=== PATIENT | female | born 1945 | race Caucasian/White ===

== ENCOUNTER 2017-04-07 10:52 | Inpatient (IN) | payer OTHER, MEDICARE ==
[~2017-04-07] VITALS: Ht 149.9 cm; Wt 81.4 kg
[2017-04-07] VITALS (8 sets, daily range): BP systolic 138–197; BP diastolic 75–97; PULSE 86–108; RESP 18–22; TEMP 97.7–97.9; O2SAT 90–96
[~2017-04-07 10:52] MED LIST: CALC600T44 PO; DILTCD240 PO; GLUCOSAMINE1500 COM PO; GLUCTAB6 PO; LISI-363 PO; LOVA40TA PO; MULT1TAB PO; PERC5TAB12 PO; RIVA10 PO; TRAM100T19 PO; VITA400C70 PO
[2017-04-07] MEDS ORDERED: COSA500C3 (11:21)
[2017-04-07] MEDS ORDERED: CALC500C16 CHEW (11:21)
[2017-04-07] MEDS ORDERED: CURCPOW (11:21)
[2017-04-07] MEDS ORDERED: LOVA40TA PO (11:21)
[2017-04-07] MEDS ORDERED: TRAM50TA PO (11:21)
[2017-04-07] MEDS ORDERED: LISI-515 PO (11:21)
[2017-04-07] MEDS ORDERED: VITA-142 (11:21)
[2017-04-07] MEDS ORDERED: DILT-48 PO (11:21)
[2017-04-07 11:33] LABS: AUTOMATED NEUTROPHIL # 9.5 TH/MM3 (1.8-7.7); BASOPHIL % 0.3 % (0.0-2.0); EOSINOPHIL % 0.2 % (0.0-4.0); HEMATOCRIT 43.1 % (35.0-46.0); HEMO FLAGS DIFF FINAL; LYMPH % 13.3 % (9.0-44.0); LYMPHOCYTE # 1.6 TH/MM3 (1.0-4.8); MEAN CORPUSCULAR HEMOGLOBIN 31.6 PG (27.0-34.0); MEAN CORPUSCULAR HGB CONC 33.2 % (32.0-36.0); MONO % 7.2 % (0.0-8.0); PLATELET COUNT 188 TH/MM3 (150-450); RED BLOOD COUNT 4.53 MIL/MM3 (4.00-5.30); RED CELL DISTRIBUTION WIDTH 13.4 % (11.6-17.2)
--- NOTE | 2017-04-07 11:38 | PD ---
HPI Chief Complaint: Fall Time Seen by Provider: 11:03 Travel History International Travel<30 days: No Contact w/Intl Traveler<30days: No Traveled to known affect area: No History of Present Illness HPI The patient is a 71-year-old female who presents emergency department after mechanical fall that occurred Monday. The patient has a history of recurrent fall secondary to bilateral hip replacements with a shortened right lower extremity which predisposes her to falls, according to her report. The patient fell in the bathroom on Monday night, landing on her knees and then striking her face against the ground. The patient denies any loss of consciousness, was able to crawl to the toilet and then stand up. She now notes swelling to the face just inferior to the eyes with ecchymosis bilateral. The patient denies any headache, loss of consciousness, or neck pain. The patient denies any epistaxis or bleeding from the oropharynx. However, the patient now complains of shortness of breath was noted to have an oxygen saturation of 90% at her physician's office earlier today, Dr. Valenzuela. The patient was then referred to the emergency department for further evaluation by her primary physician. The patient denies any history of asthma, COPD, recurrent bronchitis or pneumonia, her oxygen requirements. She does have a history of a clot to left lower extremity, unsure if it was arterial or venous, but currently takes no anticoagulants except for aspirin. The patient denies chest wall pain, does complain of mild shortness of breath, does note mild ecchymosis over the left breast. She denies any nausea, vomiting, or abdominal pain. She is able to bear weight on both lower extremities without difficulty. PFSH Past Medical History Arthritis: Yes Blood Disorders: No Heart Rhythm Problems: No Cancer: Yes (UTERINE, THYROID) Cardiovascular Problems: Yes High Cholesterol: Yes Chemotherapy: No Chest Pain: No Congestive Heart Failure: No Diabetes: Yes (TYPE 2 NO MEDS) Patient Takes Glucophage: No Deep Vein Thrombosis: Yes (LLE) Endocrine: Yes Genitourinary: No Hepatitis: No Hiatal Hernia: No Hypertension: Yes Immune Disorder: No Musculoskeletal: Yes Neurologic: No Psychiatric: No Reproductive: Yes Respiratory: No Myocardial Infarction: No Radiation Therapy: No Thyroid Disease: Yes (GOITER NO MEDS) Tetanus Vaccination: > 5 Years Influenza Vaccination: No ?: Not Past Surgical History Abdominal Surgery: Yes (LAP CJ) AICD: No Arteriovenous Shunt: No Cardiac Surgery: No Section: Yes (X 2) Cholecystectomy: Yes Ear Surgery: No Endocrine Surgery: No Eye Surgery: No Genitourinary Surgery: Yes Gynecologic Surgery: Yes ( X2 68',70'; 2006 HYSTERECTOMY OLEGARIO S&O) Hysterectomy: Yes (S/P CANCER) Insulin Pump: No Joint Replacement: Yes (BILATERAL HIP REPLACEMENT ) Oral Surgery: No Pacemaker: No Thoracic Surgery: No Other Surgery: Yes Social History Alcohol Use: Yes (COUPLE GLASSES OF WINE SOCIALLY) Tobacco Use: No Substance Use: No Allergies-Medications (Allergen,Severity, Reaction): Coded Allergies: No Known Allergies (Verified Adverse Reaction, Unknown, 04/07/17) Reported Meds & Prescriptions Reported Meds & Active Scripts Active Reported Curcumin (Turmeric (Curcuma Longa) (Bulk) 95 % Pow Vitamin E (Vitamin E Acetate) 400 Unit Capsule Tramadol (Tramadol HCl) 50 Mg Tab 100 Mg PO Q6H PRN Lovastatin 40 Mg Tab 40 Mg PO HS Lisinopril 20 Mg Tab 20 Mg PO DAILY Cosamin Ds Capsule (Glucosam/Chondroit/C/Manganese) 500 Mg-400 Mg-2 Mg-0.33 Mg Capsule Diltiazem ER 24 HR 240 Mg Caper 240 Mg PO DAILY Calcium Carbonate (Antacid) 500 Mg Chew 500 Mg CHEW BID PRN Review of Systems Except as stated in HPI: all other systems reviewed are Neg Eyes: No: Blurred Vision, Photophobia HENT: No: Headaches, Lightheadedness, Neck Pain Cardiovascular: No: Chest Pain or Discomfort Respiratory: Positive: Shortness of Breath, No: Cough Gastrointestinal: No: Nausea, Vomiting, Abdominal Pain Musculoskeletal: No: Edema Neurologic: No: Dizziness Physical Exam Narrative GENERAL: Awake, alert, pleasant 71-year-old female who appears her stated age and is in mild respiratory distress. SKIN: Focused skin assessment warm/dry. HEAD: Ecchymosis noted in the inferolateral area bilateral. No visible ecchymosis behind the ears. EYES: Pupils equal and round. Pupils are 4 mm bilateral and reactive. EOMs are intact. Patient is able to see fingers at a distance of 2 feet without difficulty. ENT: No nasal bleeding or discharge. Mucous membranes pink and moist. NECK: Trachea midline. No JVD. No tenderness of the cervical vertebrae. CARDIOVASCULAR: Regular rate and rhythm. No murmur appreciated. RESPIRATORY: No accessory muscle use. Diminished breath sounds in the bases bilateral, left greater than right. GASTROINTESTINAL: Abdomen soft, non-tender, nondistended. No rebound tenderness. MUSCULOSKELETAL: No obvious deformities. No clubbing. No cyanosis. No edema. Able to flex the hips and knees bilaterally to 90. MICHAEL hose noted on the lower extremities bilaterally. Back: No visible ecchymosis over the thoracic or lumbar vertebrae. No tenderness over the thoracic or lumbar vertebrae. NEUROLOGICAL: Awake and alert. No obvious cranial nerve deficits. Motor grossly within normal limits. Normal speech. Nonfocal. PSYCHIATRIC: Appropriate mood and affect; insight and judgment normal. Data Data Last Documented VS Vital Signs Date Time Temp Pulse Resp B/P (MAP) Pulse Ox O2 Delivery O2 Flow Rate FiO2 04/07/17 11:22 101 22 181/94 (123) 94 Nasal Cannula 3.00 04/07/17 11:10 87 04/07/17 10:54 97.9 Orders Orders Chest, Single Ap (04/07/17 ) Complete Blood Count With Diff (04/07/17 11:19) Comprehensive Metabolic Panel (04/07/17 11:19) Creatine Kinase (Cpk) (04/07/17 11:19) Troponin I (04/07/17 11:19) B-Type Natriuretic Peptide (04/07/17 11:45) Ct Brain W/O Iv Contrast(Rout) (04/07/17 ) Ct Facial Bones W/O Iv Cont (04/07/17 ) Ct Pulmonary Angiogram (04/07/17 ) Electrocardiogram (04/07/17 ) Echo 2d Comp With Doppler (04/07/17 ) Labs Laboratory Tests Test 04/07/17 11:27 04/07/17 11:50 White Blood Count 12.0 TH/MM3 Red Blood Count 4.53 MIL/MM3 Hemoglobin 14.3 GM/DL Hematocrit 43.1 % Mean Corpuscular Volume 95.0 FL Mean Corpuscular Hemoglobin 31.6 PG Mean Corpuscular Hemoglobin Concent 33.2 % Red Cell Distribution Width 13.4 % Platelet Count 188 TH/MM3 Mean Platelet Volume 8.4 FL Neutrophils (%) (Auto) 79.0 % Lymphocytes (%) (Auto) 13.3 % Monocytes (%) (Auto) 7.2 % Eosinophils (%) (Auto) 0.2 % Basophils (%) (Auto) 0.3 % Neutrophils # (Auto) 9.5 TH/MM3 Lymphocytes # (Auto) 1.6 TH/MM3 Monocytes # (Auto) 0.9 TH/MM3 Eosinophils # (Auto) 0.0 TH/MM3 Basophils # (Auto) 0.0 TH/MM3 CBC Comment DIFF FINAL Differential Comment Blood Urea Nitrogen 16 MG/DL Creatinine 0.80 MG/DL Random Glucose 130 MG/DL Total Protein 8.7 GM/DL Albumin 4.3 GM/DL Calcium Level 9.1 MG/DL Alkaline Phosphatase 117 U/L Aspartate Amino Transf (AST/SGOT) 37 U/L Alanine Aminotransferase (ALT/SGPT) 45 U/L Total Bilirubin 0.5 MG/DL Sodium Level 141 MEQ/L Potassium Level 3.8 MEQ/L Chloride Level 105 MEQ/L Carbon Dioxide Level 23.0 MEQ/L Anion Gap 13 MEQ/L Estimat Glomerular Filtration Rate 71 ML/MIN Total Creatine Kinase 121 U/L Troponin I 0.23 NG/ML B-Type Natriuretic Peptide 280 PG/ML MDM Medical Decision Making Medical Screen Exam Complete: Yes Emergency Medical Condition: Yes Medical Record Reviewed: Yes Interpretation(s) EKG reveals normal sinus rhythm with a rate in 96. Inverted T waves noted in lead V3, V4, V5, V6, 1, aVL, and lead 2. Left ventricular hypertrophy. Last Impressions Maxillofacial CT 04/07/17 Signed Impressions: Service Date/Time: Friday, April 07, 2017 12:25 - CONCLUSION: Negative trauma study with no evidence of fracture. Poli Workman MD Head CT 04/07/17 Signed Impressions: Service Date/Time: Friday, April 07, 2017 12:25 - CONCLUSION: Multiple low attenuation areas of apparent edema of concern for metastatic disease or multiple infarctions. Further evaluation with MRI with and without contrast is recommended. Poli Workman MD Chest X-Ray 04/07/17 Signed Impressions: Service Date/Time: Friday, April 07, 2017 11:36 - CONCLUSION: 1. No acute cardiopulmonary disease. Jean Paul Gan MD CT Angiography 04/07/17 Signed Impressions: Service Date/Time: Friday, April 07, 2017 12:33 - CONCLUSION: 1. Extensive bilateral pulmonary embolism with saddle emboli. This finding was reviewed with Dr. Addison. 2. 6 mm noncalcified pulmonary nodule in the right lower lobe. 3. No confluent infiltrates. 4. Heart size is enlarged. Poli Workman MD Laboratory Tests Test 04/07/17 11:27 04/07/17 11:50 White Blood Count 12.0 TH/MM3 Red Blood Count 4.53 MIL/MM3 Hemoglobin 14.3 GM/DL Hematocrit 43.1 % Mean Corpuscular Volume 95.0 FL Mean Corpuscular Hemoglobin 31.6 PG Mean Corpuscular Hemoglobin Concent 33.2 % Red Cell Distribution Width 13.4 % Platelet Count 188 TH/MM3 Mean Platelet Volume 8.4 FL Neutrophils (%) (Auto) 79.0 % Lymphocytes (%) (Auto) 13.3 % Monocytes (%) (Auto) 7.2 % Eosinophils (%) (Auto) 0.2 % Basophils (%) (Auto) 0.3 % Neutrophils # (Auto) 9.5 TH/MM3 Lymphocytes # (Auto) 1.6 TH/MM3 Monocytes # (Auto) 0.9 TH/MM3 Eosinophils # (Auto) 0.0 TH/MM3 Basophils # (Auto) 0.0 TH/MM3 CBC Comment DIFF FINAL Differential Comment Blood Urea Nitrogen 16 MG/DL Creatinine 0.80 MG/DL Random Glucose 130 MG/DL Total Protein 8.7 GM/DL Albumin 4.3 GM/DL Calcium Level 9.1 MG/DL Alkaline Phosphatase 117 U/L Aspartate Amino Transf (AST/SGOT) 37 U/L Alanine Aminotransferase (ALT/SGPT) 45 U/L Total Bilirubin 0.5 MG/DL Sodium Level 141 MEQ/L Potassium Level 3.8 MEQ/L Chloride Level 105 MEQ/L Carbon Dioxide Level 23.0 MEQ/L Anion Gap 13 MEQ/L Estimat Glomerular Filtration Rate 71 ML/MIN Total Creatine Kinase 121 U/L Troponin I 0.23 NG/ML B-Type Natriuretic Peptide 280 PG/ML Differential Diagnosis Differential diagnosis includes closed head injury, to cranial hemorrhage, subarachnoid hemorrhage, basal skull fracture, facial fracture, pneumothorax, pulmonary contusion, pulmonary embolism, rib fracture, flail chest. Narrative Course IV was established, labs are drawn and sent, and the patient was placed on cardiac telemetry monitoring and continuous pulse oximetry monitoring. Chest x- ray was obtained. CT of the brain and facial bones was obtained. CT of the brain reveals areas of edema that could represent metastatic disease versus multiple infarctions. CT pulmonary angiogram reveals saddle embolism, I discussed the patient with the radiologist. As the patient does have areas of edema in the brain, uncertain to be recent infarcts versus edema, I discussed the patient with the on-call neurosurgeon. I discussed the patient with the physician assistant operator Anette, who states I can place the patient on heparin. I discussed the patient with the health coordinator, Dr. Garcia, who agrees with admission. He will order a stat echo. At this point it is uncertain if the patient has right ventricular strain, if she can receive TPA. The patient may need a stat MRI prior to this. A call was placed to the patient's primary physician, Dr. Patel. I did discuss the findings with the patient. Critical Care Narrative Aggregate critical care time was 45 minutes. Time to perform other separately billable procedures was not included in the critical care time. My time did not include minutes spent treating any other patients simultaneously or on activities that did not directly contribute to the patient's treatment. The services I provided to this patient were to treat and/or prevent clinically significant deterioration that could result in: Anoxia, hypoxia, ventricular strain, cor pulmonale, arrhythmia, . I provided critical care services requiring my management, as noted below: Chart data review, documentation time, medication orders and management, vital sign assessments/reviewing monitor data, ordering and reviewing lab tests, ordering and interpreting/reviewing x-rays and diagnostic studies, care of the patient and discussion of the patient with the admitting physicians. Physician Communication Physician Communication I discussed the patient with the health coordinator, Dr. Garcia, who agrees with admission. Diagnosis Primary Impression: Pulmonary embolism Qualified Codes: I26.02 - Saddle embolus of pulmonary artery with acute cor pulmonale Condition: Serious Darion Addison MD Apr 07, 2017 11:38
[2017-04-07 11:57] LABS: ALT (GPT) 45 U/L (10-53); ANION GAP 13 MEQ/L (5-15); AST (GOT) 37 U/L (15-37); BLOOD UREA NITROGEN 16 MG/DL (7-18); CHLORIDE 105 MEQ/L (98-107); GLOMERULAR FILTRATION RATE 71 ML/MIN (>89); POTASSIUM 3.8 MEQ/L (3.5-5.1); SODIUM (NA) 141 MEQ/L (136-145)
[2017-04-07 12:00] LABS: ALKALINE PHOSPHATASE 117 U/L (45-117); CREATINE KINASE 121 U/L (26-192); TOTAL BILIRUBIN ADULT 0.5 MG/DL (0.2-1.0)
--- NOTE | 2017-04-07 12:04 | RADRPT ---
EXAM DATE/TIME: 04/07/2017 11:36 [facility] COMPARISON: No previous studies available for comparison. INDICATIONS : Short of breath. MEDICAL HISTORY : None. SURGICAL HISTORY : Thyroid ENCOUNTER: Initial ACUITY: 2 days PAIN SCORE: 0/10 LOCATION: Bilateral chest FINDINGS: A single view of the chest demonstrates the lungs to be symmetrically aerated without evidence of mas s, infiltrate or effusion. The cardiomediastinal contours are unremarkable. Osseous structures are intact. CONCLUSION: 1. No acute cardiopulmonary disease. Jean Paul Gan MD on April 07, 2017 at 12:01 Board Certified Radiologist. This report was verified electronically.
[2017-04-07] MEDS ORDERED: IOHEXOL 350 MG/ML 10 ML VIAL (for RAD DIAG) IVCONTRAST ONE (12:33)
--- NOTE | 2017-04-07 12:38 | RADRPT ---
EXAM DATE/TIME: 04/07/2017 12:25 [facility] COMPARISON: No previous studies available for comparison. INDICATIONS : Fell 3 days ago, bilateral orbital bruising . RADIATION DOSE: 38.47 CTDIvol (mGy) MEDICAL HISTORY : Deep venous thrombosis. Hypertension. Cardiovascular disease SURGICAL HISTORY : Hysterectomy. Cholecystectomy. ENCOUNTER: Initial ACUITY: 3 days PAIN SCALE: 4/10 LOCATION: Bilateral facial TECHNIQUE: Multiple contiguous axial images were obtained of the head. Using automated exposure control and adj ustment of the mA and/or kV according to patient size, radiation dose was kept as low as reasonably a chievable to obtain optimal diagnostic quality images. DICOM format image data is available electro nically for review and comparison. FINDINGS: There are multiple focal areas of low attenuation edema. The largest is in the right parietal lo be measuring up to 2 x 1 cm which extends out to the surface of the brain. There is a smaller low att enuation area of edema involving the left posterior cerebellar hemisphere. This measures up to approx imately 2 x 1.2 cm in diameter. There is a third, smaller low density area involving the high right p arietal cortex measuring up to 11 mm. There is no mass effect or midline shift. The ventricular syste m is within normal limits. The posterior fossa and brainstem are otherwise unremarkable. The bone win dows demonstrate hyperostosis frontalis interna. CONCLUSION: Multiple low attenuation areas of apparent edema of concern for metastatic disease or multiple infarctions. Further evaluation with MRI with and without contrast is recommended. Poli Workman MD on April 07, 2017 at 12:33 Board Certified Radiologist. This report was verified electronically.
--- NOTE | 2017-04-07 13:01 | RADRPT ---
EXAM DATE/TIME: 04/07/2017 12:33 [facility] COMPARISON: No previous studies available for comparison. INDICATIONS : Fall 3 days ago, now with shortness of breath. IV CONTRAST: 74 cc Omnipaque 350 (iohexol) IV RADIATION DOSE: 23.14 CTDIvol (mGy) MEDICAL HISTORY : Cardiovascular disease. Hypertension. Deep venous thrombosis.Uterine ca and thyroid. SURGICAL HISTORY : Hysterectomy. Cholecystectomy. ENCOUNTER: Initial ACUITY: 3 days PAIN SCALE: 0/10 LOCATION: chest TECHNIQUE: Volumetric scanning of the chest was performed using a pulmonary embolism protocol MIP images were re constructed. Using automated exposure control and adjustment of the mA and/or kV according to patien t size, radiation dose was kept as low as reasonably achievable to obtain optimal diagnostic quality images. DICOM format image data is available electronically for review and comparison. Follow-up recommendations for detected pulmonary nodules are based at a minimum on nodule size and pa tient risk factors according to Fleischner Society Guidelines. FINDINGS: PULMONARY ARTERIES: There is a large saddle embolism extending across the main pulmonary artery into the right and left b ranch vessels. There is extensive emboli in the right lower lobe pulmonary arteries and milder emboli in the left lower lobe pulmonary arteries. LUNGS: There is no consolidation or pneumothorax . The there is a 6 mm noncalcified pulmonary nodule in the right lower lobe on image #63. PLEURAE: There is no pleural thickening or pleural effusion. MEDIASTINUM: There is good visualization of the great vessels of the middle mediastinum. No evidence of mediastin al or hilar adenopathy/mass. The heart size is enlarged. MUSCULOSKELETAL: Within normal limits for patient age. MISCELLANEOUS: The visualized upper abdominal organs demonstrate no acute abnormality. The patient is status post me nicole sternotomy. CONCLUSION: 1. Extensive bilateral pulmonary embolism with saddle emboli. This finding was reviewed with Dr. Lisa watt. 2. 6 mm noncalcified pulmonary nodule in the right lower lobe. 3. No confluent infiltrates. 4. Heart size is enlarged. Poli Workman MD on April 07, 2017 at 12:55 Board Certified Radiologist. This report was verified electronically.
--- NOTE | 2017-04-07 13:03 | RADRPT ---
EXAM DATE/TIME: 04/07/2017 12:25 [facility] COMPARISON: No previous studies available for comparison. INDICATIONS : Fell 3 days ago, bilateral orbital bruising . RADIATION DOSE: 59.97 CTDIvol (mGy) MEDICAL HISTORY : Cardiovascular disease. Deep venous thrombosis. Hypertension. SURGICAL HISTORY : Hysterectomy. Cholecystectomy. ENCOUNTER: Initial ACUITY: 3 days PAIN SCORE: 4/10 LOCATION: Bilateral facial TECHNIQUE: Volumetric scanning of the facial bones was performed. Using automated exposure control and adjustme nt of the mA and/or kV according to patient size, radiation dose was kept as low as reasonably achiev able to obtain optimal diagnostic quality images. DICOM format image data is available electronicall y for review and comparison. FINDINGS: ORBITS: The orbital and infraorbital osseous structures are intact. The retroconal structures have a normal configuration. No radiopaque foreign bodies are seen. NASAL BONE: The nasal bone and maxillary spine are intact ZYGOMATIC ARCHES: Symmetric without evidence of fracture. SINUSES: The maxillary, ethmoid and frontal sinuses are intact. No air-fluid levels seen. NASAL CAVITY: The nasal septum is intact and midline. The lacrimal ducts are intact. SOFT TISSUES: No radiopaque foreign bodies seen. No soft-tissue swelling is seen. INTRACRANIAL: No intracranial air seen. CRIBIFORM PLATE: Grossly intact. CONCLUSION: Negative trauma study with no evidence of fracture. Poli Workman MD on April 07, 2017 at 13:00 Board Certified Radiologist. This report was verified electronically.
[2017-04-07] MEDS ORDERED: POTASSIUM PHOSPHATE MONOBASIC 500 MG TAB PO PRN (13:15)
[2017-04-07] MEDS ORDERED: MAGNESIUM SULFATE INJ 2 GM in SODIUM CHLORIDE 0.9% INJ 96 ML IV PRN (13:15)
[2017-04-07] MEDS ORDERED: CHLORHEXIDINE GLUCONATE 2 % 1 PACK (2 CLOTHS) TOP PRN (13:15)
[2017-04-07] MEDS ORDERED: MAGNESIUM HYDROXIDE SUSP 30 ML CUP PO PRN (13:15)
[2017-04-07] MEDS ORDERED: POTASSIUM CHLOR 40 MEQ PREMIX 100 ML IV PRN ×2 (13:15)
[2017-04-07] MEDS ORDERED: MAGNESIUM OXIDE 400 MG TAB PO PRN (13:15)
[2017-04-07] MEDS ORDERED: HEPARIN-D5W 25,000 U/250 ML 250 ML IV PRN (13:15)
[2017-04-07] MEDS ORDERED: HEPARIN SODIUM - IV 10,000 UNITS/10 ML VIAL IV ONE (13:15)
[2017-04-07] MEDS ORDERED: DEXTROSE 50% IN WATER 50 ML VIAL(D50) IV PUSH PRN (13:15)
[2017-04-07] MEDS ORDERED: BISACODYL 10 MG SUPP RECTAL PRN (13:15)
[2017-04-07] MEDS ORDERED: POTASSIUM PHOSPHATE INJ 30 MMOL in SODIUM CHLOR 0.9% 250 ML INJ 250 ML IV PRN (13:15)
[2017-04-07] MEDS ORDERED: ONDANSETRON HCL 4 MG/2 ML VIAL IV PUSH PRN (13:15)
[2017-04-07] MEDS ORDERED: RESP: ALBUTEROL 2.5 MG/IPRATROPIUM 0.5 MG NEB (PRN) INH (13:15)
[2017-04-07] MEDS ORDERED: MAGNESIUM SULFATE INJ 4 GM in SODIUM CHLORIDE 0.9% INJ 92 ML IV PRN (13:15)
[2017-04-07] MEDS ORDERED: POTASSIUM CHLOR 20 MEQ PREMIX 100 ML IV PRN ×2 (13:15)
[2017-04-07] MEDS ORDERED: SODIUM PHOSPHATE INJ 30 MMOL in SODIUM CHLOR 0.9% 250 ML INJ 240 ML IV PRN (13:15)
[2017-04-07] MEDS ORDERED: MISCELLANEOUS NURSING INFORMATION XX SCH (13:15)
[2017-04-07] MEDS ORDERED: POTASSIUM PHOSPHATE MONOBASIC 500 MG TAB PO/TUBE PRN (13:15)
--- NOTE | 2017-04-07 14:24 | HHI.HP ---
[facility] Service Critical Care Medicine Primary Care Physician Reyes Valenzuela MD Admission Diagnosis pulmonary embolism, metastatic disease versus infarct Diagnosis: Chief Complaint: shortness of breath Travel History International Travel<30 Days: No Contact w/Intl Traveler <30 Da: No Traveled to Known Affected Are: No History of Present Illness This is a 8-year-old female who has a history of uterine cancer and thyroid cancer, although both of these are reportedly in remission, who presents with a few day history of worsening shortness of breath, particularly on exertion, but also at rest. She states that even though she uses a walker, it's becoming increasingly difficult to walk because of her shortness of breath, and in addition today she noted that it was difficult to even eat dinner last night her breakfast this morning without being dyspneic. She tried to get to her PCPs office who did an EKG and sent her to the emergency department for further workup. Emergency department she was found to be tachycardic and mildly hypoxic. She is mildly elevated troponins. CT brain demonstrates multiple hypodense lesions of indeterminate origin. Neurosurgery recommended MRI for further evaluation of the lesions. CT pulmonary angiogram demonstrated saddle embolism with high clot burden. She does have a remote history of a prior DVT in the left lower extremity for which she has intermittent edema in the left lower extremity, although she has not had recent edema to this extremity, and her clot was so remote that she is now only on a baby aspirin daily per her PCP. She did endorse frequent falls and recently following and bruising her face for which she has bilateral raccoon eyes. She denies syncope or any other symptoms associated with these falls. Critical-care medicine is consulted to evaluate and manage her submassive pulmonary embolism. Review of Systems Constitutional: COMPLAINS OF: Fatigue, DENIES: Diaphoretic episodes, Fever, Weight gain, Weight loss, Chills, Dizziness Eyes: DENIES: Vision loss Respiratory: COMPLAINS OF: Shortness of breath, DENIES: Apneas, Cough, Snoring , Wheezing, Hemoptysis, Sputum production Cardiovascular: COMPLAINS OF: Dyspnea on Exertion, DENIES: Chest pain, Palpitations, Syncope, PND, Lower Extremity Edema, Orthopnea, Claudication Gastrointestinal: DENIES: Abdominal pain, Constipation, Diarrhea, Nausea, Vomiting Neurologic: DENIES: Abnormal gait, Headache, Localized weakness, Seizures Psychiatric: DENIES: Anxiety, Confusion Past Family Social History Allergies: Coded Allergies: No Known Allergies (Verified Allergy, Unknown, 04/07/17) Past Medical History Arthritis Uterine cancer Thyroid cancer Hypercholesterolemia Type 2 diabetes, diet controlled Prior left lower extremity DVT, remote, takes baby aspirin Hypertension Past Surgical History Laparoscopic cholecystectomy delivery 2 Hysterectomy with bilateral salpingo-oophorectomy in 2005 for uterine cancer Total thyroidectomy Bilateral total hip arthroplasties Reported Medications Curcumin (Turmeric (Curcuma Longa) (Bulk) 95 % Pow Vitamin E (Vitamin E Acetate) 400 Unit Capsule Tramadol (Tramadol HCl) 50 Mg Tab 100 Mg PO Q6H PRN Lovastatin 40 Mg Tab 40 Mg PO HS Lisinopril 20 Mg Tab 20 Mg PO DAILY Cosamin Ds Capsule (Glucosam/Chondroit/C/Manganese) 500 Mg-400 Mg-2 Mg-0.33 Mg Capsule Diltiazem ER 24 HR 240 Mg Caper 240 Mg PO DAILY Calcium Carbonate (Antacid) 500 Mg Chew 500 Mg CHEW BID PRN Active Ordered Medications See MAR Family History reviewed and found to be noncontributory to her acute illness. Social History Social EtOH. Negative tobacco. Negative drugs of abuse. Physical Exam Vital Signs Vital Signs Date Time Temp Pulse Resp B/P (MAP) Pulse Ox O2 Delivery O2 Flow Rate FiO2 04/07/17 11:22 101 22 181/94 (123) 94 Nasal Cannula 3.00 04/07/17 11:22 94 Nasal Cannula 3.00 04/07/17 11:10 103 20 Room Air 87 04/07/17 10:54 97.9 108 18 197/97 (130) 90 Room Air Physical Exam GENERAL: Elderly female, sitting in bed. HEENT: Normocephalic. Evidence of recent trauma with bilateral ecchymoses under the eyes. Pupils equal, round, reactive, conjugate. Mucous membranes are moist NECK: Trachea is midline. There is no JVD. CHEST: Mildly tachypneic. Equal chest rise. On nasal cannula O2. CARDIOVASCULAR: Fred rate, regular rhythm. Sinus by telemetry ABDOMEN: Soft, nontender, nondistended. No guarding. MUSCULOSKELETAL: Pulses 2+. No peripheral edema. NEUROLOGICAL: RASS 0. GCS 15. Follows commands. No focal deficits. Laboratory Laboratory Tests Test 04/07/17 11:27 04/07/17 11:50 White Blood Count 12.0 Red Blood Count 4.53 Hemoglobin 14.3 Hematocrit 43.1 Mean Corpuscular Volume 95.0 Mean Corpuscular Hemoglobin 31.6 Mean Corpuscular Hemoglobin Concent 33.2 Red Cell Distribution Width 13.4 Platelet Count 188 Mean Platelet Volume 8.4 Neutrophils (%) (Auto) 79.0 Lymphocytes (%) (Auto) 13.3 Monocytes (%) (Auto) 7.2 Eosinophils (%) (Auto) 0.2 Basophils (%) (Auto) 0.3 Neutrophils # (Auto) 9.5 Lymphocytes # (Auto) 1.6 Monocytes # (Auto) 0.9 Eosinophils # (Auto) 0.0 Basophils # (Auto) 0.0 CBC Comment DIFF FINAL Differential Comment Blood Urea Nitrogen 16 Creatinine 0.80 Random Glucose 130 Total Protein 8.7 Albumin 4.3 Calcium Level 9.1 Alkaline Phosphatase 117 Aspartate Amino Transf (AST/SGOT) 37 Alanine Aminotransferase (ALT/SGPT) 45 Total Bilirubin 0.5 Sodium Level 141 Potassium Level 3.8 Chloride Level 105 Carbon Dioxide Level 23.0 Anion Gap 13 Estimat Glomerular Filtration Rate 71 Total Creatine Kinase 121 Troponin I 0.23 B-Type Natriuretic Peptide 280 Result Diagram: 04/07/17 1127 04/07/17 1127 Imaging Last Impressions Maxillofacial CT 04/07/17 0000 Signed Impressions: Service Date/Time: Friday, April 07, 2017 12:25 - CONCLUSION: Negative trauma study with no evidence of fracture. Poli Workman MD Head CT 04/07/17 0000 Signed Impressions: Service Date/Time: Friday, April 07, 2017 12:25 - CONCLUSION: Multiple low attenuation areas of apparent edema of concern for metastatic disease or multiple infarctions. Further evaluation with MRI with and without contrast is recommended. Poli Workman MD Chest X-Ray 04/07/17 0000 Signed Impressions: Service Date/Time: Friday, April 07, 2017 11:36 - CONCLUSION: 1. No acute cardiopulmonary disease. Jean Paul Gan MD CT Angiography 04/07/17 0000 Signed Impressions: Service Date/Time: Friday, April 07, 2017 12:33 - CONCLUSION: 1. Extensive bilateral pulmonary embolism with saddle emboli. This finding was reviewed with Dr. Addison. 2. 6 mm noncalcified pulmonary nodule in the right lower lobe. 3. No confluent infiltrates. 4. Heart size is enlarged. Poli Workman MD Capmelissa VTE Risk Assessment Caprini VTE Risk Assessment: Mod/High Risk (score >= 2) Caprini Risk Assessment Model Point Value = 1 Point Value = 2 Point Value = 3 Point Value = 5 Age 41-60 Minor surgery BMI > 25 kg/m2 Swollen legs Varicose veins or History of unexplained or recurrent spontaneous Oral contraceptives or hormone replacement Sepsis (< 1 month) Serious lung disease, including pneumonia (< 1 month) Abnormal pulmonary function Acute myocardial infarction Congestive heart failure (< 1 month) History of inflammatory bowel disease Medical patient at bed rest Age 61-74 Arthroscopic surgery Major open surgery (> 45 min) Laparoscopic surgery (> 45 min) Malignancy Confined to bed (> 72 hours) Immobilizing plaster cast Central venous access Age >= 75 History of VTE Family history of VTE Factor V Leiden Prothrombin [id number] Lupus anticoagulant Anticardiolipin antibodies Elevated serum homocysteine Heparin-induced thrombocytopenia Other congenital or acquired thrombophilia Stroke (< 1 month) Elective arthroplasty Hip, pelvis, or leg fracture Acute spinal cord injury (< 1 month) Prophylaxis Regimen Total Risk Factor Score Risk Level Prophylaxis Regimen 0-1 Low Early ambulation 2 Moderate Order ONE of the following: *Sequential Compression Device (SCD) *Heparin 5000 units SQ BID 3-4 Higher Order ONE of the following medications: *Heparin 5000 units SQ TID *Enoxaparin/Lovenox 40 mg SQ daily (WT < 150 kg, CrCl > 30 mL/min) *Enoxaparin/Lovenox 30 mg SQ daily (WT < 150 kg, CrCl > 10-29 mL/min) *Enoxaparin/Lovenox 30 mg SQ BID (WT < 150 kg, CrCl > 30 mL/min) AND/OR *Sequential Compression Device (SCD) 5 or more Highest Order ONE of the following medications: *Heparin 5000 units SQ TID (Preferred with Epidurals) *Enoxaparin/Lovenox 40 mg SQ daily (WT < 150 kg, CrCl > 30 mL/min) *Enoxaparin/Lovenox 30 mg SQ daily (WT < 150 kg, CrCl > 10-29 mL/min) *Enoxaparin/Lovenox 30 mg SQ BID (WT < 150 kg, CrCl > 30 mL/min) AND *Sequential Compression Device (SCD) Assessment and Plan Assessment and Plan Assessment: 71-year-old female with history of 2 primary malignancies, both reportedly in remission, who presents with worsening shortness of breath and found to have submassive pulmonary embolism with biomarker evidence of right ventricular strain. Certainly we'll start heparin infusion for anticoagulation. Dr. Mora with neurosurgery is consulted for the hypodensities in the brain. I've asked him sepsis specifically make recommendations on whether or not we could use thrombolytic therapy if needed in this patient with evidence of RV strain. For now, we will consider her hypodensities to be relative contraindication to thrombolytics until further workup is complete. I consented her thoroughly for the risk of sudden cardiac as well as WHO class IV pulmonary hypertension long-term with her degree of clot burden. For now she remains critically ill with high risk of sudden cardiac from submassive PE. Submassive Pulmonary Embolism Saddle Pulmonary Embolism Right Ventricular Strain - heparin drip with bolus - bedrest today - stat 2d echo - relative contra-indication for lytic therapy: hypodensities in the CT head - telemetry - admit to ICU - close monitoring Acute Hypoxemia - wean o2 by NC for goal spo2 > 90% - nebs Hypodensities in the brain - f/u MRI - neurosurgery consultation for evaluation SCDs - no evidence that SCDs increase the risk of mechanical dislodgement of clot Advance diet as tolerated Admit to ICU. high risk of organ failure and with this degree of clot burden. This patient remains critically ill with one or more organ systems which are or may become a threat to life. I have spent in excess of 38 minutes discontinuously in the care and management of this patient. This time is exclusive of procedures, and includes, but is not limited to, evaluation of the patient, review of the medical record, discussions with family, consultants, nursing staff, or respiratory therapy, and documentation in the medical record. Wes Garcia MD Apr 07, 2017 14:24
[2017-04-07 14:43] LABS: APTT (PATIENT) 23.3 SEC (24.3-30.1); PROTHROMBIN TIME - PATIENT 10.9 SEC (9.8-11.6)
--- NOTE | 2017-04-07 15:11 | PD.CONS ---
(Kalyan Mora MD) [facility] Service Neurosurgery Consult Requested By Kumar Reason for Consult Abnormal CT Primary Care Physician Reyes Valenzuela MD (Kalyan Mora MD) History of Present Illness Ms. Montiel is a 71 year old female who presents to [facility] with complaints of shortness of breath. She has had multiple falls at home with head trauma. She is found to have positive Pulmonary Embolism. A CT Head did not show acute intracranial hemorrhage but multifocal areas of hypoattenuation. The patient was discussed with ED Physician and was cleared to start IV Heparin therapy for PE. The patient denies any history of intracranial mass lesion. She had a remote history of prior traumatic brain injury with contusions. She denies prior history of strokes. She denies focal weakness, paresthesias, double vision, dysarthria. She has chronic gait difficulties due to orthopedic problems in her hips and legs. (Estefania Mckeon) Review of Systems Constitutional: DENIES: Fever, Chills Eyes: DENIES: Diplopia, Vision loss Ears, nose, mouth, throat: DENIES: Vertigo Respiratory: COMPLAINS OF: Shortness of breath Gastrointestinal: DENIES: Nausea, Vomiting Musculoskeletal: COMPLAINS OF: Joint pain, Stiffness Neurologic: COMPLAINS OF: Abnormal gait (chronic), Poor Balance (chronic), DENIES: Headache, Localized weakness, Paresthesias, Seizures, Speech Problems ( Estefania Mckeon) Past Family Social History Allergies: Coded Allergies: No Known Allergies (Verified Allergy, Unknown, 04/07/17) Active Ordered Medications Current Medications Heparin Sodium (Porcine) (Heparin Inj) 6,000 units ONCE ONCE IV Last administered on 04/07/17 14:17; Start 04/07/17 at 13:15; Stop 04/07/17 at 13:16 ; Status DC Heparin Sodium/ Dextrose 250 ml @ 13 mls/hr TITRATE PRN IV Coagulation Management Last administered on 04/07/17 14:19; Start 04/07/17 at 13:15 Magnesium Oxide (Mag-Ox) 800 mg UNSCH PRN PO For Magnesium 1.2 - 1.6 mg/dL; Start 04/07/17 at 13:15 Magnesium Sulfate 4 gm/Sodium Chloride 100 ml @ 50 mls/hr UNSCH PRN IV For Magnesium 0.9 - 1.1 mg/dL; Start 04/07/17 at 13:15 Magnesium Sulfate 2 gm/Sodium Chloride 100 ml @ 50 mls/hr UNSCH PRN IV For Magnesium 1.2 - 1.6 mg/dL; Start 04/07/17 at 13:15 Potassium Chloride 100 ml @ 50 mls/hr Q2H PRN IV For Potassium 2.8 - 3.2 mEq/L ; Start 04/07/17 at 13:15 Potassium Chloride 100 ml @ 50 mls/hr Q2H PRN IV For Potassium 3.3 - 3.5 mEq/L ; Start 04/07/17 at 13:15 Potassium Chloride 100 ml @ 50 mls/hr Q2H PRN IV For Potassium 2.8 - 3.2 mEq/L ; Start 04/07/17 at 13:15 Potassium Chloride 100 ml @ 25 mls/hr UNSCH PRN IV For Potassium 3.3 - 3.5 mEq /L; Start 04/07/17 at 13:15 Potassium Phosphate (K-Phos) 2,000 mg Q4H PRN PO For Phosphorus < 2.5 mg/dL; Start 04/07/17 at 13:15 Potassium Phosphate (K-Phos) 2,000 mg UNSCH PRN PO/TUBE SEE LABEL COMMENTS; Start 04/07/17 at 13:15 Potassium Phosphate 30 mmol/ Sodium Chloride 260 ml @ 42 mls/hr UNSCH PRN IV SEE LABEL COMMENTS; Start 04/07/17 at 13:15 Sodium Phosphate 30 mmol/Sodium Chloride 250 ml @ 42 mls/hr UNSCH PRN IV For Phosphorus < 2.5 mg/dL; Start 04/07/17 at 13:15 Dextrose (D50w (Vial) Inj) 25 ml UNSCH PRN IV PUSH HYPOGLYCEMIA-SEE COMMENTS; Start 04/07/17 at 13:15 Insulin Human Regular (NovoLIN R SUPPLEMENTAL SCALE) 1 Q6HR SQ ; Start 04/07/17 at 18:00 Ondansetron HCl (Zofran Inj) 4 mg Q6H PRN IV PUSH NAUSEA OR VOMITING; Start at 13:15 Albuterol/ Ipratropium (Duoneb Neb) 1 ampule Q2HR NEB PRN INH WHEEZING; Start 04/07/17 at 13:15 Miscellaneous Information 1 Q361D XX ; Start 04/07/17 at 13:15 Chlorhexidine Gluconate (Chlorhexidine 2% Cloth) 3 pack Taper DAILY@04 TOP ; Start 04/08/17 at 04:00; Stop 04/04/18 at 03:59 Chlorhexidine Gluconate (Chlorhexidine 2% Cloth) 3 pack UNSCH PRN TOP HYGIENIC CARE; Start 04/07/17 at 13:15 Senna/Docusate Sodium (Laura-Colace) 1 tab BID PO ; Start 04/07/17 at 21:00 Magnesium Hydroxide (Milk Of Magnalexandra Liq) 30 ml Q12H PRN PO Mild constipation ; Start 04/07/17 at 13:15 Bisacodyl (Dulcolax Supp) 10 mg DAILY PRN RECTAL SEVERE CONSITIPATION; Start 04/07/17 at 13:15 Lorazepam (Ativan Inj) 2 mg ONCE PRN IV PUSH see below; Start 04/07/17 at 14:30 ; Stop 04/10/17 at 14:29 (Kalyan Mora MD) Past Medical History History of DVT Arthritis Uterine cancer Thyroid cancer Hypercholesterolemia Type 2 diabetes, diet controlled Prior left lower extremity DVT, remote, takes baby aspirin Hypertension Past Surgical History Laparoscopic cholecystectomy delivery 2 Hysterectomy with bilateral salpingo-oophorectomy in 2005 for uterine cancer Total thyroidectomy Bilateral total hip arthroplasties Reported Medications reviewed in EMR Social History She denies tobacco and illicit drug use. Occasional etoh use. (Estefania Mckeon) Physical Exam Vital Signs Vital Signs Date Time Temp Pulse Resp B/P (MAP) Pulse Ox O2 Delivery O2 Flow Rate FiO2 04/07/17 15:05 102 20 138/95 (109) 96 Nasal Cannula 3.00 04/07/17 11:22 101 22 181/94 (123) 94 Nasal Cannula 3.00 04/07/17 11:22 94 Nasal Cannula 3.00 04/07/17 11:10 103 20 Room Air 87 04/07/17 10:54 97.9 108 18 197/97 (130) 90 Room Air Physical Exam The patient is alert, awake and oriented to time, place and person. Speech is fluent. Higher cognitive functions are normal. Bilateral periocular echymosis Cranial nerve examination demonstrates the pupils to be equal, round, and reactive to light. Extra-ocular movements are intact. Facial motor and sensory function are normal and symmetrical. Gross hearing is intact, bilaterally. The uvula is midline and elevates symmetrically with the soft palate. Sternocleidomastoid and trapezius muscles have normal and symmetrical strength. Other cranial nerves are intact. Neck is soft and supple. Cervical spine has a full range of motion in anterior flexion, extension, lateral bending, and rotation without pain. There is no tenderness to palpation to the spinous processes or paraspinal muscles. Muscle testing reveals normal bulk and tone overall without rigidity, spasticity , fasciculations, or atrophy. Muscle strength is 5/5 in all muscle groups of both upper extremities including deltoid, biceps, triceps, brachioradialis, wrist extension and care technician. In the lower extremities, strength is 5/5 in both iliopsoas, quadriceps, hamstrings, plantar flexion, dorsiflexion, and extensor hallicus longus. Sensory examination is intact to light touch and sharp/dull discrimination in both the upper and lower extremities, symmetrically. Deep tendon reflexes are 2+ and symmetrical in the biceps, triceps, and brachioradialis, bilaterally, in the upper extremities. In the lower extremities , the patellar and Achilles are 2+, bilaterally. There is a bilateral plantar flexion response. Hoffmanns sign is negative. There is no clonus or other abnormal reflexes noted. Cerebellar examination is intact to [id number] test, rapid rhythmic alternating motion. There is no dysmetria, dysdiadochokinesia, truncal ataxia, or tremor. Laboratory Laboratory Tests Test 04/07/17 11:20 04/07/17 11:27 04/07/17 11:50 Prothrombin Time 10.9 Prothromb Time International Ratio 1.0 Activated Partial Thromboplast Time 23.3 White Blood Count 12.0 Red Blood Count 4.53 Hemoglobin 14.3 Hematocrit 43.1 Mean Corpuscular Volume 95.0 Mean Corpuscular Hemoglobin 31.6 Mean Corpuscular Hemoglobin Concent 33.2 Red Cell Distribution Width 13.4 Platelet Count 188 Mean Platelet Volume 8.4 Neutrophils (%) (Auto) 79.0 Lymphocytes (%) (Auto) 13.3 Monocytes (%) (Auto) 7.2 Eosinophils (%) (Auto) 0.2 Basophils (%) (Auto) 0.3 Neutrophils # (Auto) 9.5 Lymphocytes # (Auto) 1.6 Monocytes # (Auto) 0.9 Eosinophils # (Auto) 0.0 Basophils # (Auto) 0.0 CBC Comment DIFF FINAL Differential Comment Blood Urea Nitrogen 16 Creatinine 0.80 Random Glucose 130 Total Protein 8.7 Albumin 4.3 Calcium Level 9.1 Alkaline Phosphatase 117 Aspartate Amino Transf (AST/SGOT) 37 Alanine Aminotransferase (ALT/SGPT) 45 Total Bilirubin 0.5 Sodium Level 141 Potassium Level 3.8 Chloride Level 105 Carbon Dioxide Level 23.0 Anion Gap 13 Estimat Glomerular Filtration Rate 71 Total Creatine Kinase 121 Troponin I 0.23 B-Type Natriuretic Peptide 280 (Kalyan Mora MD) Result Diagram: 04/07/17 1127 04/07/17 1127 Imaging Last [address] 04/07/17 0000 Signed Impressions: Service Date/Time: Friday, April 07, 2017 12:25 - CONCLUSION: Negative trauma study with no evidence of fracture. Poli Workman MD Head CT 04/07/17 0000 Signed Impressions: Service Date/Time: Friday, April 07, 2017 12:25 - CONCLUSION: Multiple low attenuation areas of apparent edema of concern for metastatic disease or multiple infarctions. Further evaluation with MRI with and without contrast is recommended. Poli Workman MD Chest X-Ray 04/07/17 0000 Signed Impressions: Service Date/Time: Friday, April 07, 2017 11:36 - CONCLUSION: 1. No acute cardiopulmonary disease. Jean Paul Gan MD CT Angiography 04/07/17 0000 Signed Impressions: Service Date/Time: Friday, April 07, 2017 12:33 - CONCLUSION: 1. Extensive bilateral pulmonary embolism with saddle emboli. This finding was reviewed with Dr. Addison. 2. 6 mm noncalcified pulmonary nodule in the right lower lobe. 3. No confluent infiltrates. 4. Heart size is enlarged. Poli Workman MD (Kalyan Mora MD) Assessment and Plan Assessment and Plan Caprini VTE Risk Assessment Caprini VTE Risk Assessment: Mod/High Risk (score >= 2) Caprini Risk Assessment Model Point Value = 1 Point Value = 2 Point Value = 3 Point Value = 5 Age 41-60 Minor surgery BMI > 25 kg/m2 Swollen legs Varicose veins or History of unexplained or recurrent spontaneous Oral contraceptives or hormone replacement Sepsis (< 1 month) Serious lung disease, including pneumonia (< 1 month) Abnormal pulmonary function Acute myocardial infarction Congestive heart failure (< 1 month) History of inflammatory bowel disease Medical patient at bed rest Age 61-74 Arthroscopic surgery Major open surgery (> 45 min) Laparoscopic surgery (> 45 min) Malignancy Confined to bed (> 72 hours) Immobilizing plaster cast Central venous access Age >= 75 History of VTE Family history of VTE Factor V Leiden Prothrombin [id number] Lupus anticoagulant Anticardiolipin antibodies Elevated serum homocysteine Heparin-induced thrombocytopenia Other congenital or acquired thrombophilia Stroke (< 1 month) Elective arthroplasty Hip, pelvis, or leg fracture Acute spinal cord injury (< 1 month) Prophylaxis Regimen Total Risk Factor Score Risk Level Prophylaxis Regimen 0-1 Low Early ambulation 2 Moderate Order ONE of the following: *Sequential Compression Device (SCD) *Heparin 5000 units SQ BID 3-4 Higher Order ONE of the following medications: *Heparin 5000 units SQ TID *Enoxaparin/Lovenox 40 mg SQ daily (WT < 150 kg, CrCl > 30 mL/min) *Enoxaparin/Lovenox 30 mg SQ daily (WT < 150 kg, CrCl > 10-29 mL/min) *Enoxaparin/Lovenox 30 mg SQ BID (WT < 150 kg, CrCl > 30 mL/min) AND/OR *Sequential Compression Device (SCD) 5 or more Highest Order ONE of the following medications: *Heparin 5000 units SQ TID (Preferred with Epidurals) *Enoxaparin/Lovenox 40 mg SQ daily (WT < 150 kg, CrCl > 30 mL/min) *Enoxaparin/Lovenox 30 mg SQ daily (WT < 150 kg, CrCl > 10-29 mL/min) *Enoxaparin/Lovenox 30 mg SQ BID (WT < 150 kg, CrCl > 30 mL/min) AND *Sequential Compression Device (SCD) (Kalyan Mora MD) Attending Statement 71-year-old female with history of 2 primary malignancies, with worsening shortness of breath and found to have pulmonary embolism In the absence of the proper radiological studies such as an MRI, I am unable to provide any recommendations regarding lytic therapy. I do not see any indication for a neurosurgical procedure at this time. I will kindly defer recommendations to neurology Pulmonary emboli. Defer to medical, Dr Garcia Heparin drip Bed rest He needs to do whatever is necessary Acute Hypoxemia wean o2 by NC for goal spo2 > 90% aggressive pulmonary toilette, nasotracheal suction, and breathing treatments with nebulizers. Nutrition. Oral diet Renal. monitor closely urine output, BUN and creatinine Endocrine. Monitor serial Acu checks and SSI as needed in detail ID monitor for signs of infection Protonix for stress ulcer prophylaxis Eugene hose and SCD's for DVT prophylaxis. This patient remains critically ill with one or more organ systems which are or may become a threat to life. Thank you very much for this very interesting consultation. Please reconsult if need further advice (Kalyan Mora MD) Kalyan Mora MD Apr 07, 2017 15:11 Estefania Mckeon Apr 07, 2017 16:00
[2017-04-07] MEDS: LORazepam 2 MG/ML VIAL IV PUSH PRN (15:30)
--- NOTE | 2017-04-07 15:55 | ECHRPT ---
Indication: HEART FAILURE CONCLUSIONS The left ventricular systolic function is low normal with an estimated ejection fraction in the rang e of 50- 55%. Doppler parameters are consistent with impaired left ventricular relaxtion (grade 1 diastolic dysfun ction). The right ventricular systoilc function is severely decreased. The right ventricle is mildly dilated. RV free wall has some mobility with apical hyperdynamic (Kiser Sign), consistent with diagnosis of PE. Trace mitral valve regurgitation. There is mild tricuspid valve regurgitation. BP: 181 / 94 HR: 101 Rhythm: MEASUREMENTS (Male / Female) Normal Values Technical Quality:Good 2D ECHO LV Diastolic Diameter PLAX 3.7 cm 4.2 - 5.9 / 3.9 - 5.3 cm LV Systolic Diameter PLAX 3.1 cm IVS Diastolic Thickness 1.1 cm 0.6 - 1.0 / 0.6 - 0.9 cm LVPW Diastolic Thickness 0.7 cm 0.6 - 1.0 / 0.6 - 0.9 cm LV Relative Wall Thickness 0.5 RV Internal Dim ED PLAX 3.2 cm LA Systolic Diameter LX 3.6 cm 3.0 - 4.0 / 2.7 - 3.8 cm DOPPLER AV Peak Velocity 212.0 cm/s AV Peak Gradient 18.0 mmHg LVOT Peak Velocity 74.5 cm/s LVOT Peak Gradient 2.2 mmHg Mitral E Point Velocity 44.9 cm/s Mitral A Point Velocity 72.1 cm/s Mitral E to A Ratio 0.6 TR Peak Velocity 290.0 cm/s TR Peak Gradient 33.6 mmHg FINDINGS LEFT VENTRICLE Normal left ventricular size. Wall thickness is measured at the upper limits of normal. The left ventricular systolic function is low normal with an estimated ejection fraction in the rang e of 50- 55%. Doppler parameters are consistent with impaired left ventricular relaxtion (grade 1 diastolic dysfun ction). RIGHT VENTRICLE The right ventricular systoilc function is severely decreased. The right ventricle is mildly dilated. RV free wall has some mobility with apical hyperdynamic (Kiser Sign), consistent with diagnosis of PE LEFT ATRIUM The left atrial size is normal. RIGHT ATRIUM The right atrial size is mildly dilated. ATRIAL SEPTUM Normal atrial septal thickness without atrial level shunting by limited color doppler interrogation. AORTA The aortic root and proximal ascending aorta are normal in size on limited imaging. MITRAL VALVE Mitral annular calcification is present. Structurally normal mitral valve. Trace mitral valve regurgitation. No mitral valve stenosis. AORTIC VALVE Aortic valve sclerosis is present. No aortic valve regurgitation. No aortic valve stenosis. TRICUSPID VALVE Structurally normal tricuspid valve. There is mild tricuspid valve regurgitation. The estimated pulmonary arterial pressure is 35 mmHg. PULMONARY VALVE The pulmonary valve is not well visualized. PERICARDIUM No pericardial effusion. Neeraj Pimentel DO (Electronically Signed) Final Date:07 April 2017 15:55
[2017-04-07] MEDS ORDERED: GADODIAMIDE PF 287 MG/ML 5 ML VIAL (for RAD MRI) IVCONTRAST ONE (16:34)
--- NOTE | 2017-04-07 17:18 | RADRPT ---
EXAM DATE/TIME: 04/07/2017 16:12 [facility] COMPARISON: CT PULMONARY ANGIOGRAM, April 07, 2017, 12:33. CT BRAIN W/O CONTRAST, April 07, 2017, 12:25. INDICATIONS : Metastatic disease. Fall. CONTRAST: 14 cc Omniscan (gadodiamide) IV MEDICAL HISTORY : Carcinoma, thyroid. Hypertension. SURGICAL HISTORY : Thyroidectomy. ENCOUNTER: Initial ACUITY: 1 day PAIN SCORE: 0/10 LOCATION: cranial TECHNIQUE: Multiplanar, multisequence MRI of the brain was performed both prior to and following the administrat ion of paramagnetic contrast. FINDINGS: Moderate periventricular white matter changes are noted. There is no focal area of acute diffusion i n the right anterior sylvian region without hemorrhage consistent with an acute infarct. There is no abnormal contrast enhancement. Ventricle size is appropriate. There no extra-axial fluid collection appreciated. Posterior fossa is normal CONCLUSION: Subacute infarct right anterior division sylvian region. I do not see evidence of metastatic disease There is no parenchymal hemorrhage. Dann Rivera MD FACR on April 07, 2017 at 17:13 Board Certified Radiologist. This report was verified electronically.
[2017-04-07] MEDS: INSULIN NovoLIN REGULAR SUPPLEMENTAL SCALE SQ SCH (18:00)
[2017-04-07] MEDS: DOCUSATE SODIUM 50 MG/SENNA 8.6 MG TAB PO SCH (21:00)
[2017-04-07 21:28] LABS: APTT (PATIENT) 171.8 SEC (24.3-30.1)
[2017-04-08] VITALS (21 sets, daily range): BP systolic 110–179; BP diastolic 57–92; PULSE 71–108; RESP 14–34; TEMP 97.5–98.4; O2SAT 92–96
[2017-04-08 01:28] LABS: APTT (PATIENT) 38.8 SEC (24.3-30.1)
[2017-04-08] MEDS: LORazepam 2 MG/ML VIAL IV PUSH PRN (01:40)
[2017-04-08] MEDS: CHLORHEXIDINE GLUCONATE 2 % 1 PACK (2 CLOTHS) TOP SCH (04:00)
[2017-04-08] MEDS: INSULIN NovoLIN REGULAR SUPPLEMENTAL SCALE SQ SCH ×5 (06:00→23:13)
[2017-04-08 07:30] LABS: MEAN CELL VOLUME 95.1 FL (80.0-100.0); MEAN CORPUSCULAR HEMOGLOBIN 32.1 PG (27.0-34.0); MEAN CORPUSCULAR HGB CONC 33.7 % (32.0-36.0); PLATELET COUNT 176 TH/MM3 (150-450); RED BLOOD COUNT 4.21 MIL/MM3 (4.00-5.30); RED CELL DISTRIBUTION WIDTH 13.3 % (11.6-17.2); REVIEW FLAG FINAL; WHITE BLOOD COUNT 6.7 TH/MM3 (4.0-11.0)
[2017-04-08 07:51] LABS: BICARBONATE 24.8 MEQ/L (21.0-32.0); POTASSIUM 3.4 MEQ/L (3.5-5.1)
--- NOTE | 2017-04-08 10:48 | HHI.CCPN ---
Subjective Remarks/Hospital Course Hospital Course: This is a 8-year-old female who has a history of uterine cancer and thyroid cancer, although both of these are reportedly in remission, who presents with a few day history of worsening shortness of breath, particularly on exertion, but also at rest. She states that even though she uses a walker, it's becoming increasingly difficult to walk because of her shortness of breath, and in addition today she noted that it was difficult to even eat dinner last night her breakfast this morning without being dyspneic. She tried to get to her PCPs office who did an EKG and sent her to the emergency department for further workup. Emergency department she was found to be tachycardic and mildly hypoxic. She is mildly elevated troponins. CT brain demonstrates multiple hypodense lesions of indeterminate origin. Neurosurgery recommended MRI for further evaluation of the lesions. CT pulmonary angiogram demonstrated saddle embolism with high clot burden. She does have a remote history of a prior DVT in the left lower extremity for which she has intermittent edema in the left lower extremity, although she has not had recent edema to this extremity, and her clot was so remote that she is now only on a baby aspirin daily per her PCP. She did endorse frequent falls and recently following and bruising her face for which she has bilateral raccoon eyes. She denies syncope or any other symptoms associated with these falls. Critical-care medicine is consulted to evaluate and manage her submassive pulmonary embolism. Subjective: 04/08: clinically stable. HR improving. on heparin drip. MRI demonstrated subacute infarct but no masses. will need work-up for subacute stroke. tolerating diet. no complaints. Objective Vital Signs Date Time Temp Pulse Resp B/P (MAP) Pulse Ox O2 Delivery O2 Flow Rate FiO2 04/08/17 10:35 92 Nasal Cannula 2.00 04/08/17 06:00 71 04/08/17 04:00 98.4 14 119/57 (77) 04/07/17 11:10 87 Intake and Output 04/08/17 04/08/17 04/09/17 08:00 16:00 00:00 Intake Total 43 ml Balance 43 ml Result Diagram: 04/08/17 0701 04/08/17 0701 Imaging Last Impressions Maxillofacial CT 04/07/17 0000 Signed Impressions: Service Date/Time: Friday, April 07, 2017 12:25 - CONCLUSION: Negative trauma study with no evidence of fracture. Poli Workman MD Head CT 04/07/17 0000 Signed Impressions: Service Date/Time: Friday, April 07, 2017 12:25 - CONCLUSION: Multiple low attenuation areas of apparent edema of concern for metastatic disease or multiple infarctions. Further evaluation with MRI with and without contrast is recommended. Poli Workman MD Chest X-Ray 04/07/17 Signed Impressions: Service Date/Time: Friday, April 07, 2017 11:36 - CONCLUSION: 1. No acute cardiopulmonary disease. Jean Paul Gan MD CT Angiography 04/07/17 0000 Signed Impressions: Service Date/Time: Friday, April 07, 2017 12:33 - CONCLUSION: 1. Extensive bilateral pulmonary embolism with saddle emboli. This finding was reviewed with Dr. Addison. 2. 6 mm noncalcified pulmonary nodule in the right lower lobe. 3. No confluent infiltrates. 4. Heart size is enlarged. Poli Workman MD Objective Remarks GENERAL: Elderly female, sitting in bed. HEENT: Normocephalic. Evidence of recent trauma with bilateral ecchymoses under the eyes. Pupils equal, round, reactive, conjugate. Mucous membranes are moist NECK: Trachea is midline. There is no JVD. CHEST: Mildly tachypneic. Equal chest rise. On nasal cannula O2. CARDIOVASCULAR: Fred rate, regular rhythm. Sinus by telemetry ABDOMEN: Soft, nontender, nondistended. No guarding. MUSCULOSKELETAL: Pulses 2+. No peripheral edema. NEUROLOGICAL: RASS 0. GCS 15. Follows commands. No focal deficits. A/P Assessment and Plan Assessment: 71-year-old female with history of 2 primary malignancies, both reportedly in remission, who presents with worsening shortness of breath and found to have submassive pulmonary embolism with biomarker evidence of right ventricular strain. MRI without evidence of masses, subacute infarct. Will transition from heparin drip to full dose lovenox. Clinically stable and can leave the ICU today. I still think risk/benefit at this point is against lytic therapy, and the patient was very concerned about the risks of major bleeds with lytic therapy, particularly with a subacute stroke. Will work-up stroke. consult hospitalist service and can transfer out of ICU. Still has high risk of sudden cardiac for 2-3 weeks post submassive PE, and almost 30% risk of WHO class IV pulmonary hypertension long-term. These risks have been discussed with the patient. Submassive Pulmonary Embolism Saddle Pulmonary Embolism Right Ventricular Strain - transition from heparin drip to therapeutic lovenox. - may be a good candidate for NOAC therapy - 2d echo 04/07: mod-severe right ventricular dysfunction consistent with RV strain from PE. Subacute Cerebral Vascular Accident - consult crystal machining coordinator - echo already complete. - carotid dopplers - lipid panel - ASA Acute Hypoxemia - improving. - wean o2 by NC for goal spo2 > 90% - nebs Hypothyroidism - restart home synthroid. Hypertension - hold anti-hypertensives for now, restart as needed - hold off on Cardizem as lowering HR may worsen RV dysfunction. - allow slight tachycardia for now. SCDs - no evidence that SCDs increase the risk of mechanical dislodgement of clot regular diet as tolerated. Transfer to hospitalist service. transfer out of ICU. Wes Garcia MD Apr 08, 2017 10:48
--- NOTE | 2017-04-08 12:40 | HHI.NSPN ---
Note Status Status: Progress Note Interval History Diagnosis Infarction, PE Interval History Ms. Montiel is a 71 year old female who presents to [facility] ED with complaints of shortness of breath. She has had multiple falls at home with head trauma. She is found to have positive Pulmonary Embolism. A CT Head did not show acute intracranial hemorrhage but multifocal areas of hypoattenuation. The patient was discussed with ED Physician and was cleared to start IV Heparin therapy for PE. The patient denies any history of intracranial mass lesion. She had a remote history of prior traumatic brain injury with contusions. She denies prior history of strokes. She denies focal weakness, paresthesias, double vision, dysarthria. She has chronic gait difficulties due to orthopedic problems in her hips and legs. 04/08. Neurologically stable. MRI brain was done She is alert, awake and oriented to time, place and person. Speech is fluent. Higher cognitive functions are normal. Bilateral periocular echymosis Cranial nerve examination demonstrates the pupils to be equal, round, and reactive to light. Extra-ocular movements are intact. Facial motor and sensory function are normal and symmetrical. Gross hearing is intact, bilaterally. The uvula is midline and elevates symmetrically with the soft palate. Sternocleidomastoid and trapezius muscles have normal and symmetrical strength. Other cranial nerves are intact. Neck is soft and supple. Cervical spine has a full range of motion in anterior flexion, extension, lateral bending, and rotation without pain. There is no tenderness to palpation to the spinous processes or paraspinal muscles. Muscle testing reveals normal bulk and tone overall without rigidity, spasticity , fasciculations, or atrophy. Muscle strength is 5/5 in all muscle groups of both upper extremities including deltoid, biceps, triceps, brachioradialis, wrist extension and chief specialist leed. In the lower extremities, strength is 5/5 in both iliopsoas, quadriceps, hamstrings, plantar flexion, dorsiflexion, and extensor hallicus longus. Sensory examination is intact to light touch and sharp/dull discrimination in both the upper and lower extremities, symmetrically. Deep tendon reflexes are 2+ and symmetrical in the biceps, triceps, and brachioradialis, bilaterally, in the upper extremities. In the lower extremities , the patellar and Achilles are 2+, bilaterally. There is a bilateral plantar flexion response. Hoffmanns sign is negative. There is no clonus or other abnormal reflexes noted. Cerebellar examination is intact to [id number]-cn-[id number] test, rapid rhythmic alternating motion. There is no dysmetria, dysdiadochokinesia, truncal ataxia, or tremor. Laboratory Laboratory Tests Test 04/07/17 11:20 04/07/17 11:27 04/07/17 11:50 Prothrombin Time 10.9 Prothromb Time International Ratio 1.0 Activated Partial Thromboplast Time 23.3 White Blood Count 12.0 Red Blood Count 4.53 Hemoglobin 14.3 Hematocrit 43.1 Mean Corpuscular Volume 95.0 Mean Corpuscular Hemoglobin 31.6 Mean Corpuscular Hemoglobin Concent 33.2 Red Cell Distribution Width 13.4 Platelet Count 188 Mean Platelet Volume 8.4 Neutrophils (%) (Auto) 79.0 Lymphocytes (%) (Auto) 13.3 Monocytes (%) (Auto) 7.2 Eosinophils (%) (Auto) 0.2 Basophils (%) (Auto) 0.3 Neutrophils # (Auto) 9.5 Lymphocytes # (Auto) 1.6 Monocytes # (Auto) 0.9 Eosinophils # (Auto) 0.0 Basophils # (Auto) 0.0 CBC Comment DIFF FINAL Differential Comment Blood Urea Nitrogen 16 Creatinine 0.80 Random Glucose 130 Total Protein 8.7 Albumin 4.3 Calcium Level 9.1 Alkaline Phosphatase 117 Aspartate Amino Transf (AST/SGOT) 37 Alanine Aminotransferase (ALT/SGPT) 45 Total Bilirubin 0.5 Sodium Level 141 Potassium Level 3.8 Chloride Level 105 Carbon Dioxide Level 23.0 Anion Gap 13 Estimat Glomerular Filtration Rate 71 Total Creatine Kinase 121 Troponin I 0.23 B-Type Natriuretic Peptide 280 (Kalyan Mora MD) Result Diagram: 04/07/17 1127 04/07/17 1127 Imaging Last [address] 04/07/17 0000 Signed Impressions: Service Date/Time: Friday, April 07, 2017 12:25 - CONCLUSION: Negative trauma study with no evidence of fracture. Poli Workman MD Head CT 04/07/17 0000 Signed Impressions: Service Date/Time: Friday, April 07, 2017 12:25 - CONCLUSION: Multiple low attenuation areas of apparent edema of concern for metastatic disease or multiple infarctions. Further evaluation with MRI with and without contrast is recommended. Poli Workman MD Chest X-Ray 04/07/17 0000 Signed Impressions: Service Date/Time: Friday, April 07, 2017 11:36 - CONCLUSION: 1. No acute cardiopulmonary disease. Jean Paul Gan MD CT Angiography 04/07/17 0000 Signed Impressions: Service Date/Time: Friday, April 07, 2017 12:33 - CONCLUSION: 1. Extensive bilateral pulmonary embolism with saddle emboli. This finding was reviewed with Dr. Addison. 2. 6 mm noncalcified pulmonary nodule in the right lower lobe. 3. No confluent infiltrates. 4. Heart size is enlarged. Poli Workman MD (Kalyan Mora MD) Assessment and Plan Assessment and Plan Assessment and Plan Caprini VTE Risk Assessment Caprini VTE Risk Assessment: Mod/High Risk (score >= 2) Caprini Risk Assessment Model Point Value = 1 Point Value = 2 Point Value = 3 Point Value = 5 Age 41-60 Minor surgery BMI > 25 kg/m2 Swollen legs Varicose veins or History of unexplained or recurrent spontaneous Oral contraceptives or hormone replacement Sepsis (< 1 month) Serious lung disease, including pneumonia (< 1 month) Abnormal pulmonary function Acute myocardial infarction Congestive heart failure (< 1 month) History of inflammatory bowel disease Medical patient at bed rest Age 61-74 Arthroscopic surgery Major open surgery (> 45 min) Laparoscopic surgery (> 45 min) Malignancy Confined to bed (> 72 hours) Immobilizing plaster cast Central venous access Age >= 75 History of VTE Family history of VTE Factor V Leiden Prothrombin [id number] Lupus anticoagulant Anticardiolipin antibodies Elevated serum homocysteine Heparin-induced thrombocytopenia Other congenital or acquired thrombophilia Stroke (< 1 month) Elective arthroplasty Hip, pelvis, or leg fracture Acute spinal cord injury (< 1 month) Prophylaxis Regimen Total Risk Factor Score Risk Level Prophylaxis Regimen 0-1 Low Early ambulation 2 Moderate Order ONE of the following: *Sequential Compression Device (SCD) *Heparin 5000 units SQ BID 3-4 Higher Order ONE of the following medications: *Heparin 5000 units SQ TID *Enoxaparin/Lovenox 40 mg SQ daily (WT < 150 kg, CrCl > 30 mL/min) *Enoxaparin/Lovenox 30 mg SQ daily (WT < 150 kg, CrCl > 10-29 mL/min) *Enoxaparin/Lovenox 30 mg SQ BID (WT < 150 kg, CrCl > 30 mL/min) AND/OR *Sequential Compression Device (SCD) 5 or more Highest Order ONE of the following medications: *Heparin 5000 units SQ TID (Preferred with Epidurals) *Enoxaparin/Lovenox 40 mg SQ daily (WT < 150 kg, CrCl > 30 mL/min) *Enoxaparin/Lovenox 30 mg SQ daily (WT < 150 kg, CrCl > 10-29 mL/min) *Enoxaparin/Lovenox 30 mg SQ BID (WT < 150 kg, CrCl > 30 mL/min) AND *Sequential Compression Device (SCD) (Kalyan Mora MD) Inpatient MDM Attending Statement 71-year-old female with history of 2 primary malignancies, with worsening shortness of breath and found to have pulmonary embolism In the absence of the proper radiological studies such as an MRI, I am unable to provide any recommendations regarding lytic therapy. I do not see any indication for a neurosurgical procedure at this time. I will kindly defer recommendations to neurology Pulmonary emboli. Defer to medical, Dr Garcia Heparin drip Bed rest He needs to do whatever is necessary Acute Hypoxemia wean o2 by NC for goal spo2 > 90% aggressive pulmonary toilette, nasotracheal suction, and breathing treatments with nebulizers. Nutrition. Oral diet Renal. monitor closely urine output, BUN and creatinine Endocrine. Monitor serial Acu checks and SSI as needed in detail ID monitor for signs of infection Protonix for stress ulcer prophylaxis Eugene mera and SCD's for DVT prophylaxis. This patient remains critically ill with one or more organ systems which are or may become a threat to life. Labs, Micro, & Vital Signs Results Date Time Temp Pulse Resp B/P (MAP) Pulse Ox O2 Delivery O2 Flow Rate FiO2 04/08/17 10:35 95 Nasal Cannula 4.00 04/08/17 06:00 71 04/08/17 04:00 71 04/08/17 04:00 98.4 71 14 119/57 (77) 94 04/08/17 02:00 79 04/08/17 00:00 98.4 81 17 145/75 (98) 94 04/08/17 00:00 81 04/07/17 22:00 91 04/07/17 20:39 94 Nasal Cannula 2.00 04/07/17 20:00 86 04/07/17 20:00 97.8 86 21 167/75 (105) 96 04/07/17 18:00 93 04/07/17 17:45 93 04/07/17 17:45 97.7 93 18 179/84 (115) 93 04/07/17 17:08 04/07/17 15:05 102 20 138/95 (109) 96 Nasal Cannula 3.00 Constitutional Vital Signs Date Time Temp Pulse Resp B/P (MAP) Pulse Ox O2 Delivery O2 Flow Rate FiO2 04/08/17 10:35 95 Nasal Cannula 4.00 04/08/17 06:00 71 04/08/17 04:00 71 04/08/17 04:00 98.4 71 14 119/57 (77) 94 04/08/17 02:00 79 04/08/17 00:00 98.4 81 17 145/75 (98) 94 04/08/17 00:00 81 04/07/17 22:00 91 04/07/17 20:39 94 Nasal Cannula 2.00 04/07/17 20:00 86 04/07/17 20:00 97.8 86 21 167/75 (105) 96 04/07/17 18:00 93 04/07/17 17:45 93 04/07/17 17:45 97.7 93 18 179/84 (115) 93 04/07/17 17:08 04/07/17 15:05 102 20 138/95 (109) 96 Nasal Cannula 3.00 Physical Exam She is alert, awake and oriented to time, place and person. Speech is fluent. Higher cognitive functions are normal. Bilateral periocular echymosis Cranial nerve examination demonstrates the pupils to be equal, round, and reactive to light. Extra-ocular movements are intact. Facial motor and sensory function are normal and symmetrical. Gross hearing is intact, bilaterally. The uvula is midline and elevates symmetrically with the soft palate. Sternocleidomastoid and trapezius muscles have normal and symmetrical strength. Other cranial nerves are intact. Neck is soft and supple. Cervical spine has a full range of motion in anterior flexion, extension, lateral bending, and rotation without pain. There is no tenderness to palpation to the spinous processes or paraspinal muscles. Muscle testing reveals normal bulk and tone overall without rigidity, spasticity , fasciculations, or atrophy. Muscle strength is 5/5 in all muscle groups of both upper extremities including deltoid, biceps, triceps, brachioradialis, wrist extension and chief specialist leed. In the lower extremities, strength is 5/5 in both iliopsoas, quadriceps, hamstrings, plantar flexion, dorsiflexion, and extensor hallicus longus. Sensory examination is intact to light touch and sharp/dull discrimination in both the upper and lower extremities, symmetrically. Deep tendon reflexes are 2+ and symmetrical in the biceps, triceps, and brachioradialis, bilaterally, in the upper extremities. In the lower extremities , the patellar and Achilles are 2+, bilaterally. There is a bilateral plantar flexion response. Hoffmanns sign is negative. There is no clonus or other abnormal reflexes noted. Cerebellar examination is intact to [id number] test, rapid rhythmic alternating motion. There is no dysmetria, dysdiadochokinesia, truncal ataxia, or tremor. Medications Current Medications Current Medications Heparin Sodium (Porcine) (Heparin Inj) 6,000 units ONCE ONCE IV Last administered on 04/07/17t 14:17; Start 04/07/17 at 13:15; Stop 04/08/17 at 10:49 ; Status DC Heparin Sodium/ Dextrose 250 ml @ 13 mls/hr TITRATE PRN IV Coagulation Management Last administered on 04/07/17t 14:19; Start 04/07/17 at 13:15; Stop 04/08/17 at 10:49; Status DC Magnesium Oxide (Mag-Ox) 800 mg UNSCH PRN PO For Magnesium 1.2 - 1.6 mg/dL; Start 04/07/17 at 13:15 Magnesium Sulfate 4 gm/Sodium Chloride 100 ml @ 50 mls/hr UNSCH PRN IV For Magnesium 0.9 - 1.1 mg/dL; Start 04/07/17 at 13:15 Magnesium Sulfate 2 gm/Sodium Chloride 100 ml @ 50 mls/hr UNSCH PRN IV For Magnesium 1.2 - 1.6 mg/dL; Start 04/07/17 at 13:15 Potassium Chloride 100 ml @ 50 mls/hr Q2H PRN IV For Potassium 2.8 - 3.2 mEq/L ; Start 04/07/17 at 13:15 Potassium Chloride 100 ml @ 50 mls/hr Q2H PRN IV For Potassium 3.3 - 3.5 mEq/L ; Start 04/07/17 at 13:15 Potassium Chloride 100 ml @ 50 mls/hr Q2H PRN IV For Potassium 2.8 - 3.2 mEq/L ; Start 04/07/17 at 13:15 Potassium Chloride 100 ml @ 25 mls/hr UNSCH PRN IV For Potassium 3.3 - 3.5 mEq /L; Start 04/07/17 at 13:15 Potassium Phosphate (K-Phos) 2,000 mg Q4H PRN PO For Phosphorus < 2.5 mg/dL; Start 04/07/17 at 13:15 Potassium Phosphate (K-Phos) 2,000 mg UNSCH PRN PO/TUBE SEE LABEL COMMENTS; Start 04/07/17 at 13:15 Potassium Phosphate 30 mmol/ Sodium Chloride 260 ml @ 42 mls/hr UNSCH PRN IV SEE LABEL COMMENTS; Start 04/07/17 at 13:15 Sodium Phosphate 30 mmol/Sodium Chloride 250 ml @ 42 mls/hr UNSCH PRN IV For Phosphorus < 2.5 mg/dL; Start 04/07/17 at 13:15 Dextrose (D50w (Vial) Inj) 25 ml UNSCH PRN IV PUSH HYPOGLYCEMIA-SEE COMMENTS; Start 04/07/17 at 13:15 Insulin Human Regular (NovoLIN R SUPPLEMENTAL SCALE) 1 Q6HR SQ ; Start 04/07/17 at 18:00 Ondansetron HCl (Zofran Inj) 4 mg Q6H PRN IV PUSH NAUSEA OR VOMITING; Start at 13:15 Albuterol/ Ipratropium (Duoneb Neb) 1 ampule Q2HR NEB PRN INH WHEEZING; Start 04/07/17 at 13:15 Miscellaneous Information 1 Q361D XX ; Start 04/07/17 at 13:15 Chlorhexidine Gluconate (Chlorhexidine 2% Cloth) 3 pack Taper DAILY@04 TOP ; Start 04/08/17 at 04:00; Stop 04/04/18 at 03:59 Chlorhexidine Gluconate (Chlorhexidine 2% Cloth) 3 pack UNSCH PRN TOP HYGIENIC CARE; Start 04/07/17 at 13:15 Senna/Docusate Sodium (Laura-Colace) 1 tab BID PO ; Start 04/07/17 at 21:00 Magnesium Hydroxide (Milk Of Pal Liq) 30 ml Q12H PRN PO Mild constipation ; Start 04/07/17 at 13:15 Bisacodyl (Dulcolax Supp) 10 mg DAILY PRN RECTAL SEVERE CONSITIPATION; Start 04/07/17 at 13:15 Lorazepam (Ativan Inj) 2 mg ONCE PRN IV PUSH see below Last administered on 01:40; Start 04/07/17 at 14:30; Stop 04/10/17 at 14:29 Gadodiamide (Omniscan Pf Inj) 14 ml STK-MED ONCE IVCONTRAST Last administered on 04/07/17 16:34; Start 04/07/17 at 16:34; Stop 04/07/17 at 16:35; Status DC Aspirin (Aspirin) 325 mg DAILY PO ; Start 04/08/17 at 10:45 Enoxaparin Sodium (Lovenox Inj) 70 mg Q12H SQ ; Start 04/08/17 at 10:45 Pravastatin Sodium (Pravachol) 40 mg HS PO ; Start 04/08/17 at 21:00 Levothyroxine Sodium (Synthroid) 125 mcg DAILY@0600 PO ; Start 04/09/17 at 06:00 Medical Decision Making MDM Remarks Last [address] 04/07/17 0000 Signed Impressions: Service Date/Time: Friday, April 07, 2017 12:25 - CONCLUSION: Negative trauma study with no evidence of fracture. Poli Workman MD Head CT 04/07/17 0000 Signed Impressions: Service Date/Time: Friday, April 07, 2017 12:25 - CONCLUSION: Multiple low attenuation areas of apparent edema of concern for metastatic disease or multiple infarctions. Further evaluation with MRI with and without contrast is recommended. Poli Workman MD Chest X-Ray 04/07/17 0000 Signed Impressions: Service Date/Time: Friday, April 07, 2017 11:36 - CONCLUSION: 1. No acute cardiopulmonary disease. Jean Paul Gan MD CT Angiography 04/07/17 0000 Signed Impressions: Service Date/Time: Friday, April 07, 2017 12:33 - CONCLUSION: 1. Extensive bilateral pulmonary embolism with saddle emboli. This finding was reviewed with Dr. Addison. 2. 6 mm noncalcified pulmonary nodule in the right lower lobe. 3. No confluent infiltrates. 4. Heart size is enlarged. Poli Workman MD Brain MRI 04/07/17 0000 Signed Impressions: Service Date/Time: Friday, April 07, 2017 16:12 - CONCLUSION: Subacute infarct right anterior division sylvian region. I do not see evidence of metastatic disease There is no parenchymal hemorrhage. Dann Rivera MD FACR Plan Plan Remarks Assessment and Plan Assessment and Plan Assessment and Plan Caprini VTE Risk Assessment Caprini VTE Risk Assessment: Mod/High Risk (score >= 2) Caprini Risk Assessment Model Point Value = 1 Point Value = 2 Point Value = 3 Point Value = 5 Age 41-60 Minor surgery BMI > 25 kg/m2 Swollen legs Varicose veins or History of unexplained or recurrent spontaneous Oral contraceptives or hormone replacement Sepsis (< 1 month) Serious lung disease, including pneumonia (< 1 month) Abnormal pulmonary function Acute myocardial infarction Congestive heart failure (< 1 month) History of inflammatory bowel disease Medical patient at bed rest Age 61-74 Arthroscopic surgery Major open surgery (> 45 min) Laparoscopic surgery (> 45 min) Malignancy Confined to bed (> 72 hours) Immobilizing plaster cast Central venous access Age >= 75 History of VTE Family history of VTE Factor V Leiden Prothrombin [id number] Lupus anticoagulant Anticardiolipin antibodies Elevated serum homocysteine Heparin-induced thrombocytopenia Other congenital or acquired thrombophilia Stroke (< 1 month) Elective arthroplasty Hip, pelvis, or leg fracture Acute spinal cord injury (< 1 month) Prophylaxis Regimen Total Risk Factor Score Risk Level Prophylaxis Regimen 0-1 Low Early ambulation 2 Moderate Order ONE of the following: *Sequential Compression Device (SCD) *Heparin 5000 units SQ BID 3-4 Higher Order ONE of the following medications: *Heparin 5000 units SQ TID *Enoxaparin/Lovenox 40 mg SQ daily (WT < 150 kg, CrCl > 30 mL/min) *Enoxaparin/Lovenox 30 mg SQ daily (WT < 150 kg, CrCl > 10-29 mL/min) *Enoxaparin/Lovenox 30 mg SQ BID (WT < 150 kg, CrCl > 30 mL/min) AND/OR *Sequential Compression Device (SCD) 5 or more Highest Order ONE of the following medications: *Heparin 5000 units SQ TID (Preferred with Epidurals) *Enoxaparin/Lovenox 40 mg SQ daily (WT < 150 kg, CrCl > 30 mL/min) *Enoxaparin/Lovenox 30 mg SQ daily (WT < 150 kg, CrCl > 10-29 mL/min) *Enoxaparin/Lovenox 30 mg SQ BID (WT < 150 kg, CrCl > 30 mL/min) AND *Sequential Compression Device (SCD) Attending Statement 71-year-old female with history of 2 primary malignancies, with worsening shortness of breath and found to have pulmonary embolism MRI showed an infarction. No metastatic disease seen. OK to proceed with anticoagulation from the neurosurgical standpoint. Pulmonary emboli. Defer to medical, Dr Garcia Heparin drip Bed rest Acute Hypoxemia wean o2 by NC for goal spo2 > 90% aggressive pulmonary toilette, nasotracheal suction, and breathing treatments with nebulizers. Nutrition. Oral diet Renal. monitor closely urine output, BUN and creatinine Endocrine. Monitor serial Acu checks and SSI as needed in detail ID monitor for signs of infection Protonix for stress ulcer prophylaxis Eugene hose and SCD's for DVT prophylaxis. This patient remains critically ill with one or more organ systems which are or may become a threat to life. Discussed with Kalyan Tomas MD Apr 08, 2017 12:40
--- NOTE | 2017-04-08 12:54 | RADRPT ---
EXAM DATE/TIME: 04/08/2017 11:53 [facility] COMPARISON: No previous studies available for comparison. INDICATIONS : CVA. MEDICAL HISTORY : Hypercholesterolemia. Hypertension. Deep venous thrombosis. SURGICAL HISTORY : Hysterectomy. section. Bilateral hip replacement. ENCOUNTER: Initial ACUITY: 1 day PAIN SCORE: 1/10 LOCATION: Bilateral neck PEAK SYSTOLIC VELOCITIES (cm/sec): ICA/CCA RATIO: Right: 1.6 Left: 1.1 ICA: Right: 107 Left: 94 CCA: Right: 67 Left: 87 ECA: Right: 72 Left: 77 VERTEBRAL: Right: 46 antegrade Left: 63 antegrade Elevated flow velocities and ICA/CCA ratios have been found to correlate with increased degrees of vessel stenosis, calculated as percentage of diameter relative to a normal segment of distal ICA/CCA FINDINGS: RIGHT CAROTID: No significant stenosis is visualized. The waveforms are within normal limits. LEFT CAROTID: No significant stenosis is visualized. The waveforms are within normal limits. VERTEBRAL ARTERIES: Antegrade flow is seen in both vertebral arteries. MISCELLANEOUS: None. CONCLUSION: 1. Minimal calcified plaque in the carotid bulbs without significant flow-limiting stenosis. 2. Antegrade vertebral artery flow bilaterally. Jean Paul Gan MD on April 08, 2017 at 12:51 Board Certified Radiologist. This report was verified electronically.
[2017-04-08] MEDS: ASPIRIN 325 MG TAB PO SCH (13:17)
[2017-04-08] MEDS: ENOXAPARIN SODIUM 80 MG/0.8 ML SYRINGE SQ SCH ×2 (13:17→23:11)
[2017-04-08] MEDS: DOCUSATE SODIUM 50 MG/SENNA 8.6 MG TAB PO SCH ×2 (13:17→20:32)
[2017-04-08] MEDS: PRAVASTATIN SOD 40 MG TAB PO SCH (20:33)
[2017-04-08] MEDS: BENZOCAINE-MENTHOL (SUGAR FREE) 15 MG-3.6 MG LOZENGE BUCCAL PRN (20:39)
[2017-04-09] VITALS (24 sets, daily range): BP systolic 130–167; BP diastolic 61–94; PULSE 71–106; RESP 16–18; TEMP 97.4–98; O2SAT 95–99
[2017-04-09] MEDS: BENZOCAINE-MENTHOL (SUGAR FREE) 15 MG-3.6 MG LOZENGE BUCCAL PRN ×5 (02:00→23:23)
[2017-04-09] MEDS: CHLORHEXIDINE GLUCONATE 2 % 1 PACK (2 CLOTHS) TOP SCH (04:00)
[2017-04-09] MEDS: LEVOTHYROXINE SODIUM 125 MCG TAB PO SCH (05:22)
[2017-04-09] MEDS: INSULIN NovoLIN REGULAR SUPPLEMENTAL SCALE SQ SCH ×4 (05:22→23:23)
[2017-04-09 06:03] LABS: MEAN CELL VOLUME 93.7 FL (80.0-100.0); MEAN CORPUSCULAR HEMOGLOBIN 31.5 PG (27.0-34.0); MEAN CORPUSCULAR HGB CONC 33.6 % (32.0-36.0); PLATELET COUNT 194 TH/MM3 (150-450); RED BLOOD COUNT 4.17 MIL/MM3 (4.00-5.30); RED CELL DISTRIBUTION WIDTH 13.3 % (11.6-17.2); REVIEW FLAG FINAL; WHITE BLOOD COUNT 6.5 TH/MM3 (4.0-11.0)
[2017-04-09 06:27] LABS: BICARBONATE 22.7 MEQ/L (21.0-32.0); POTASSIUM 3.5 MEQ/L (3.5-5.1)
[2017-04-09] MEDS: DOCUSATE SODIUM 50 MG/SENNA 8.6 MG TAB PO SCH ×3 (09:00→20:51)
[2017-04-09] MEDS: ASPIRIN 325 MG TAB PO SCH (09:22)
[2017-04-09] MEDS: ENOXAPARIN SODIUM 80 MG/0.8 ML SYRINGE SQ SCH ×2 (10:46→23:08)
--- NOTE | 2017-04-09 11:17 | PD.CONS ---
History of Present Illness Service INTERNAL MEDICINE Consult Requested By BLAKE DAVILA M.D. Reason for Consult MANAGEMENT OF MEDICAL PROBLEMS Primary Care Physician REYES VALENZUELA MD Diagnoses: History of Present Illness This patient is a 71 year old female who acutely presented to the office with complaint of feeling progressively worsening shortness of breath. Initially, her symptoms were with mild exertion. Now, she gets shortness of breath at rest. She recently had a hard fall and suffered trauma to multiple areas including her face. She has major bruising of the nasal area, below both eyes and for her knees. She had an EKG done in the office due to her having a tachycardic presentation. Also, pulse oximetry was done which revealed a low level of 86% on room air. She was sent to the emergency room due to suspicion for a pulmonary embolism. She was transported to [facility] Emergency Room for evaluation. Her emergency room work up revealed that she had bilateral pulmonary emboli and a saddle embolus. In addition, she had cerebral densities on the CT Scan of the Brain. She was admitted to the Critical Care service and placed in the Intensive Care Unit. She is now transferred out of the ICU and is being seen for continued medical management. Review of Systems Respiratory: COMPLAINS OF: Shortness of breath Musculoskeletal: COMPLAINS OF: Muscle aches, Back pain Past Family Social History Allergies: Coded Allergies: No Known Allergies (Verified Allergy, Unknown, 04/07/17) Past Medical History Hypertension. Hyperlipidemia. Hypothyroidism. Diabetes Mellitus, Type 2. Osteoarthritis. Lumbar Disc Disease. Endometrial Cancer. Hurthle Cell Thyroid Cancer. DVT of the Left Lower Extremity. Past Surgical History Appendectomy. Cholecystectomy. Bilateral Tubal Ligation. Section. Left Hip Replacement. Right Hip Replacement. Family History Uncle with Liver Cancer. Aunt with Cancer. Cousin with Colon Cancer. Social History She is and lives at home with her . She is currently retired from work in accounting. She is a nonsmoker and alcohol intake is rare. There is no use of any recreational drugs. Physical Exam Vital Signs Vital Signs Date Time Temp Pulse Resp B/P (MAP) Pulse Ox O2 Delivery O2 Flow Rate FiO2 04/09/17 10:00 106 04/09/17 09:00 84 04/09/17 08:00 98.0 83 16 154/76 (102) 99 04/09/17 08:00 87 04/09/17 06:08 71 04/09/17 05:26 92 04/09/17 04:14 97.9 77 16 130/61 (84) 95 04/09/17 04:13 71 04/09/17 03:32 82 04/09/17 02:13 100 04/09/17 00:50 77 04/09/17 00:47 97.4 87 18 148/75 (99) 98 04/08/17 23:15 86 04/08/17 22:00 92 04/08/17 21:15 88 04/08/17 21:15 97.5 103 20 154/77 (102) 95 04/08/17 18:00 97 31 144/90 (108) 96 04/08/17 17:01 94 22 164/76 (105) 95 04/08/17 16:04 91 21 179/77 (111) 95 04/08/17 16:01 98.4 94 22 175/81 (112) 95 04/08/17 15:00 93 21 148/85 (106) 94 04/08/17 14:00 98 24 139/83 (101) 96 04/08/17 13:01 105 26 130/64 (86) 93 04/08/17 12:00 98.3 108 33 169/85 (113) 95 04/08/17 11:31 102 34 110/81 (91) Physical Exam GENERAL: This is a well-nourished, well-developed patient, in no apparent distress. SKIN: She has ecchymosis of the nasal bridge and below both eyes. Otherwise, no rashes or lesions. Cool and dry. HEAD: Atraumatic. Normocephalic. No temporal or scalp tenderness. EYES: Pupils equal round and reactive. Extraocular motions intact. No scleral icterus. No injection or drainage. ENT: Nose without bleeding, purulent drainage or septal hematoma. Throat without erythema, tonsillar hypertrophy or exudate. Uvula midline. Airway patent. NECK: Trachea midline. No JVD or lymphadenopathy. Supple, nontender, no meningeal signs. CARDIOVASCULAR: Regular rate and rhythm without murmurs, gallops, or rubs. RESPIRATORY: Clear to auscultation. Breath sounds equal bilaterally. No wheezes , rales, or rhonchi. GASTROINTESTINAL: Abdomen has overweight character. It is soft, non-tender and nondistended. No hepato-splenomegaly, or palpable masses. No guarding. MUSCULOSKELETAL: There is some edema of the lower limbs at 1+ for the right lower limb and at mild status for the left lower limb. Extremities are without clubbing or cyanosis. No joint tenderness or effusion. No calf tenderness. Negative Homans sign bilaterally. NEUROLOGICAL: Awake and alert. Cranial nerves II through XII intact. Motor and sensory grossly within normal limits. Five out of 5 muscle strength in all muscle groups. Normal speech. Laboratory Laboratory Tests Test 04/09/17 05:20 White Blood Count 6.5 Red Blood Count 4.17 Hemoglobin 13.1 Hematocrit 39.0 Mean Corpuscular Volume 93.7 Mean Corpuscular Hemoglobin 31.5 Mean Corpuscular Hemoglobin Concent 33.6 Red Cell Distribution Width 13.3 Platelet Count 194 Mean Platelet Volume 8.2 Blood Urea Nitrogen 13 Creatinine 0.68 Random Glucose 117 Calcium Level 9.1 Sodium Level 140 Potassium Level 3.5 Chloride Level 106 Carbon Dioxide Level 22.7 Anion Gap 11 Estimat Glomerular Filtration Rate 86 Result Diagram: 04/09/1751904/09/17519 Assessment and Plan Assessment and Plan ASSESSMENT 1. Bilateral Pulmonary Emboli with Saddle Embolism. 2. Severe Symptomatic Dyspnea. 3. Hypoxemia. 4. Cerebral Vascular Accident. 5. Hypertension. 6. Hyperlipidemia. 7. Hypothyroidism. 8. Diabetes Mellitus, Type 2. 9. Lumbar Disc Disease. 10. Remote Stage 1B Adenocarcinoma of the Endometrium. 11. Remote Hurthle Cell Thyroid Cancer. PLAN 1. Continue with anticoagulation treatment. 2. Follow up laboratory assessment. 3. Consultation to Neurology. 4. Consultation to Hematology. 5. Activity out of bed with assistance. 6. Home medications, as needed. 7. DVT, PE and PUD prophylaxis. Reyes Valenzuela MD Apr 09, 2017 11:17
--- NOTE | 2017-04-09 11:44 | EKG ---
Date Performed: 04/07/2017 Time Performed: 11:59:34 PTAGE: 71 years EKG: Sinus rhythm LEFT VENTRICULAR HYPERTROPHY AND ST-T CHANGE ABNORMAL ECG PREVIOUS TRACING : 09/06/2006 19.59 Consider anterolateral ischemia, which is new compared to p vinnie DOCTOR: Anselmo Pugh Interpretating Date/Time 04/09/2017 11:42:20
[2017-04-09] MEDS: PRAVASTATIN SOD 40 MG TAB PO SCH (20:50)
[2017-04-10] VITALS (23 sets, daily range): BP systolic 136–187; BP diastolic 74–97; PULSE 68–104; RESP 16–18; TEMP 98–98.9; O2SAT 97–98
[2017-04-10] MEDS: CHLORHEXIDINE GLUCONATE 2 % 1 PACK (2 CLOTHS) TOP SCH (04:00)
[2017-04-10 05:43] LABS: BICARBONATE 25.4 MEQ/L (21.0-32.0); POTASSIUM 3.8 MEQ/L (3.5-5.1)
[2017-04-10 05:44] LABS: HEMATOCRIT 39.6 % (35.0-46.0); MEAN CELL VOLUME 94.8 FL (80.0-100.0); MEAN CORPUSCULAR HEMOGLOBIN 32.4 PG (27.0-34.0); MEAN CORPUSCULAR HGB CONC 34.2 % (32.0-36.0); PLATELET COUNT 180 TH/MM3 (150-450); RED BLOOD COUNT 4.18 MIL/MM3 (4.00-5.30); RED CELL DISTRIBUTION WIDTH 13.6 % (11.6-17.2); REVIEW FLAG FINAL
[2017-04-10] MEDS: INSULIN NovoLIN REGULAR SUPPLEMENTAL SCALE SQ SCH ×3 (06:00→17:29)
[2017-04-10] MEDS: LEVOTHYROXINE SODIUM 125 MCG TAB PO SCH (06:19)
[2017-04-10] MEDS: ASPIRIN 325 MG TAB PO SCH (09:00)
[2017-04-10] MEDS: DOCUSATE SODIUM 50 MG/SENNA 8.6 MG TAB PO SCH ×2 (09:00→21:00)
[2017-04-10] MEDS: BENZOCAINE-MENTHOL (SUGAR FREE) 15 MG-3.6 MG LOZENGE BUCCAL PRN ×3 (11:24→19:39)
[2017-04-10] MEDS: ENOXAPARIN SODIUM 80 MG/0.8 ML SYRINGE SQ SCH (11:24)
--- NOTE | 2017-04-10 11:33 | MB ---
cc: ANGELIQUE MALCOLM M.D. DATE OF CONSULTATION: 04/10/2017 HISTORY OF PRESENT ILLNESS She is a 71-year-old seen in neurological consultation in regards to an acute stroke. She was admitted on 04/07 when she came to the hospital with history of fall at home. She was found to have a pulmonary embolism and she has been on Lovenox and aspirin. The patient described that she woke up in the middle of the night and she sleeps in a recliner, walking in her living room, she apparently tripped on a lipped rug and she fell face down. She was brought to the hospital. She subsequently was discovered to have the pulmonary embolism and also an acute to subacute infarct on the right middle cerebral artery distribution. I reviewed the MRI. She has a history of uterine and thyroid cancer. She has a history of previous DVT. She had been on aspirin, 81 mg at home. The patient also takes a statin and blood pressure medicines at home. NEUROLOGIC EXAMINATION Neurologic exam shows an alert, pleasant woman. She was oriented and seemed to be in good spirits. Mild hematomas under the lower eyelids. She has about the same size pupils, reactive. Speech and language are all normal. She has good strength in all four extremities while sitting in the chair. Reflexes 1-2+ throughout, plantar response is flexor. LABORATORY DATA Laboratory data includes LDL 102. IMAGING STUDIES MRI as discussed above. Carotid ultrasound unremarkable. ASSESSMENT Acute/subacute infarct right middle cerebral artery distribution. Interestingly, it is difficult to say whether or not this infarct is what caused her to fall but because she says she tripped on the rug and fell. She has had prior history of falls. Anyhow she is also diagnosed with pulmonary embolism, she is on full-dose Lovenox and aspirin. I would suggest long-term anticoagulation for this patient. She is on a statin and the goal would be to reach an LDL below 60. An echocardiogram was done and results reviewed. The EKG shows sinus rhythm. Continue medical care ___ physical therapy for gait activities. Monitor neurological course and reassess if needed. Thank you for asking us to assist in her care. MD COLBY Morton/RANDY /9:57 AM /11:22 AM
[2017-04-10] MEDS: LISINOPRIL 20 MG TAB PO SCH (13:23)
[2017-04-10] MEDS: PRAVASTATIN SOD 40 MG TAB PO SCH (21:26)
[2017-04-11] VITALS (22 sets, daily range): BP systolic 132–176; BP diastolic 65–91; PULSE 34–100; RESP 16–18; TEMP 97.7–98.5; O2SAT 97–99
[2017-04-11] MEDS: ENOXAPARIN SODIUM 80 MG/0.8 ML SYRINGE SQ SCH ×3 (00:44→22:18)
[2017-04-11] MEDS: BENZOCAINE-MENTHOL (SUGAR FREE) 15 MG-3.6 MG LOZENGE BUCCAL PRN ×4 (01:30→22:17)
[2017-04-11] MEDS: CHLORHEXIDINE GLUCONATE 2 % 1 PACK (2 CLOTHS) TOP SCH (04:00)
[2017-04-11 04:48] LABS: HEMATOCRIT 37.1 % (35.0-46.0); MEAN CELL VOLUME 93.7 FL (80.0-100.0); MEAN CORPUSCULAR HGB CONC 34.1 % (32.0-36.0); PLATELET COUNT 206 TH/MM3 (150-450); RED BLOOD COUNT 3.96 MIL/MM3 (4.00-5.30); RED CELL DISTRIBUTION WIDTH 13.6 % (11.6-17.2); REVIEW FLAG FINAL; WHITE BLOOD COUNT 5.6 TH/MM3 (4.0-11.0)
[2017-04-11 05:16] LABS: BICARBONATE 23.8 MEQ/L (21.0-32.0); POTASSIUM 3.6 MEQ/L (3.5-5.1)
[2017-04-11] MEDS: INSULIN NovoLIN REGULAR SUPPLEMENTAL SCALE SQ SCH ×4 (06:00→17:43)
[2017-04-11] MEDS: LEVOTHYROXINE SODIUM 125 MCG TAB PO SCH (06:11)
--- NOTE | 2017-04-11 06:17 | MB ---
cc: ASHOK BAKER MD DATE OF CONSULTATION 04/10/2017 DATE OF 1945 CHIEF COMPLAINT Pulmonary embolism. HISTORY OF PRESENT ILLNESS Ms. Montiel is a 71-year-old lady with a history of uterine cancer that was removed in 2004 with her postoperative course was complicated by infection and DVT. She also has a history of thyroid cancer s/p removal approximately one year ago and then treated with radioactive iodine. This treatment was done at the [facility]. She was admitted to the hospital with falls at home and worsening shortness of breath. The patient reports that she has a longstanding history of chronic falls which she attributes to unsteady gait from bilateral hip surgeries and arthritis. She is unsteady on her feet. She also has a history of bilateral hip replacement and she says after surgeries on both hips she was found to have one leg that is shorter than the other. She has fallen at work and at home multiple times. She reports that for her left knee she is still under workman's comp. Approximately two days ago she was up in the morning to use the bathroom and she tripped and fell at home. She did not seek medical attention at that time. She then reported that during the time after she fell she was developing worsening shortness of breath which prompted her to present to her primary director of health care marketing where she was found to be hypoxic. She was sent to the emergency room. Echocardiogram showed a normal left ventricular size, wall thickness upper limits of normal; the systolic function is low-normal with an estimated ejection fraction in the range of 50-55%. Grade 1 diastolic dysfunction. Right ventricular systolic function is severely decreased. CT angiography shows extensive bilateral pulmonary embolism with saddle emboli, a 2.6 mm noncalcified pulmonary nodule in the right lower lobe. She was also found to have subacute infarct of the right anterior division sylvian region on brain MRI. Head CT showed multiple low attenuation areas of edema with concern for either malignancy or infarction. She had been evaluated by multiple consulting services. She was unable to receive lytic therapy even due to stroke. She is under the care of the critical care team. She has been evaluated by neurosurgery. Laboratory studies with normal hemoglobin, normal platelet count. Normal renal function. She was placed on heparin drip and then converted to Lovenox injections. PAST MEDICAL HISTORY 1. Uterine cancer. 2. Thyroid cancer. 3. DVT. 4. Hypothyroidism. 5. Hypertension. PAST SURGICAL HISTORY 1. Bilateral hip replacements. 2. Thyroid surgery. 3. Hysterectomy. FAMILY HISTORY An aunt with a history of uterine cancer. She also reports other family members with a history of malignancy, she is uncertain of which types of cancer. SOCIAL HISTORY The patient lives in [place]. She has a good support system with her family. Denies tobacco, alcohol, illegal drug use. ALLERGIES No known allergies. MEDICATIONS medications in the hospital include - 1. Aspirin full dose. 2. Lovenox. 3. Synthroid. 4. Lisinopril. REVIEW OF SYSTEMS SKIN: Positive for bruising from multiple recent falls. MUSCULOSKELETAL: Unsteadiness on feet that is chronic with chronic falls. RESPIRATORY: Shortness of breath and hypoxia. All other review of systems are negative. PHYSICAL EXAMINATION GENERAL: Well-developed, well-nourished lady in no distress. HEAD:Normocephalic with bruising from recent fall across the left side of the face and bilateral eye bruising. Eyes: Pupils equal, round and reactive to light and accommodation. No icterus. Neck: supple with no palpable LAD. CARDIOVASCULAR: Regular rate and rhythm. No murmurs. LUNGS: Clear to auscultation bilaterally. ABDOMEN: Soft, nontender, nondistended with bowel sounds present. EXTREMITIES: With no edema. NEUROLOGIC: Grossly nonfocal. PSYCH: Appropriate mood and affect. ASSESSMENT AND PLAN 1. Pulmonary embolism: bilateral pulmonary emboli with saddle embolism and evidence of right heart strain. She is unable to receive lytic therapy due to acute CVA. She was initially started on heparin gtt and transitioned to lovenox injections. Patient reports that she has been in her normal state of health prior to hospital admission. Denies recent surgery, illness, immobilization. 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 She will need a minimum of three months of anticoagulation and given unprovoked nature of VTE may need indefinite anticoagulation. Discussed options at length with patient and her . Options include warfarin vs rivaroxaban vs apixaban. Discussed risks versus benefits of each medication. Warfarin would require continuous churn buttermaker laboratory monitoring, dietary restrictions, lovenox bridging. This medication is able to be reversed, however we know from studies that there are more serious bleeds while on this medications. Rivaroxaban and apixaban do not require laboratory monitoring or dietary restrictions, however at this point in time there are no true reversal agents on the market. She has good renal and liver function. She will discuss options with and will readdress tomorrow. 2. CVA: acute vs subacute. Currently on antiplatelet therapy. Risks vs benefits of full dose ASA in addition to full anticoagulation. MD RACHEL Cote/DONIS /11:51 PM /6:02 AM MTDD
[2017-04-11] MEDS: ASPIRIN 325 MG TAB PO SCH (08:57)
[2017-04-11] MEDS: LISINOPRIL 20 MG TAB PO SCH (08:57)
[2017-04-11] MEDS: DOCUSATE SODIUM 50 MG/SENNA 8.6 MG TAB PO SCH ×2 (08:57→22:17)
--- NOTE | 2017-04-11 11:42 | HHI.PR ---
Review/Management Daily Summary 04/11 seen earlier today very much stable anticoagulation for PE and ischemic stroke PT for OOB activities Subjective Subjective Comments feels better today Active Medications Current Medications Medications (Trade) Dose Ordered Sig/Roosevelt Route Start Time Stop Time Status Last Admin (Mag-Ox) 800 mg UNSCH PRN PO 04/07/17 13:15 Magnesium Sulfate 4 gm/Sodium Chloride 100 ml @ 50 mls/hr UNSCH PRN IV 04/07/17 13:15 Magnesium Sulfate 2 gm/Sodium Chloride 100 ml @ 50 mls/hr UNSCH PRN IV 04/07/17 13:15 Potassium Chloride 100 ml @ 50 mls/hr Q2H PRN IV 04/07/17 13:15 04/08/17 13:16 Potassium Chloride 100 ml @ 50 mls/hr Q2H PRN IV 04/07/17 13:15 Potassium Chloride 100 ml @ 50 mls/hr Q2H PRN IV 04/07/17 13:15 Potassium Chloride 100 ml @ 25 mls/hr UNSCH PRN IV 04/07/17 13:15 (K-Phos) 2,000 mg Q4H PRN PO 04/07/17 13:15 (K-Phos) 2,000 mg UNSCH PRN PO/TUBE 04/07/17 13:15 Potassium Phosphate 30 mmol/ Sodium Chloride 260 ml @ 42 mls/hr UNSCH PRN IV 04/07/17 13:15 Sodium Phosphate 30 mmol/Sodium Chloride 250 ml @ 42 mls/hr UNSCH PRN IV 04/07/17 13:15 (D50w (Vial) Inj) 25 ml UNSCH PRN IV PUSH 04/07/17 13:15 (NovoLIN R SUPPLEMENTAL SCALE) 1 Q6HR SQ 04/07/17 18:00 04/09/17 23:23 (Zofran Inj) 4 mg Q6H PRN IV PUSH 04/07/17 13:15 (Duoneb Neb) 1 ampule Q2HR NEB PRN INH 04/07/17 13:15 Miscellaneous Information 1 Q361D XX 04/07/17 13:15 (Chlorhexidine 2% Cloth) 3 pack Taper DAILY@04 TOP 04/08/17 04:00 04/04/18 03:59 (Chlorhexidine 2% Cloth) 3 pack UNSCH PRN TOP 04/07/17 13:15 (Laura-Colace) 1 tab BID PO 04/07/17 21:00 04/08/17 13:17 (Milk Of Magnesia Liq) 30 ml Q12H PRN PO 04/07/17 13:15 (Dulcolax Supp) 10 mg DAILY PRN RECTAL 04/07/17 13:15 (Aspirin) 325 mg DAILY PO 04/08/17 10:45 04/11/17 08:57 (Lovenox Inj) 70 mg Q12H SQ 04/08/17 10:45 04/11/17 10:43 (Pravachol) 40 mg HS PO 04/08/17 21:00 04/10/17 21:26 (Synthroid) 125 mcg DAILY@0600 PO 04/09/17 06:00 04/11/17 06:11 (Cepacol Extra Sung (Sugar Free)) 1 lozenge Q4H PRN BUCCAL 04/08/17 19:00 04/11/17 10:42 (Prinivil) 20 mg DAILY PO 04/10/17 13:15 04/11/17 08:57 Allergies Allergies Coded Allergies No Known Allergies (Verified Allergy, Unknown, 04/07/17) Exam I&O / VS Vital Signs Date Time Temp Pulse Resp B/P (MAP) Pulse Ox O2 Delivery O2 Flow Rate FiO2 04/11/17 11:24 97.7 89 16 149/70 (96) 98 04/11/17 11:00 84 04/11/17 10:00 98 04/11/17 09:00 88 04/11/17 08:00 90 04/11/17 07:30 98.3 91 16 143/91 (108) 99 04/11/17 07:00 83 04/11/17 05:00 34 04/11/17 04:16 72 04/11/17 04:00 98.0 71 16 176/77 (110) 98 04/11/17 03:00 91 04/11/17 02:00 86 04/11/17 00:00 98.5 72 16 147/89 (108) 98 04/10/17 20:00 98.2 87 16 136/80 (98) 97 04/10/17 18:00 86 04/10/17 17:00 84 04/10/17 16:00 88 04/10/17 15:37 98.3 88 16 179/74 (109) 98 04/10/17 15:00 89 04/10/17 14:00 91 04/10/17 13:00 86 04/10/17 12:00 88 Objective Micro and Labs Laboratory Tests Test 04/11/17 04:41 White Blood Count 5.6 Red Blood Count 3.96 Hemoglobin 12.6 Hematocrit 37.1 Mean Corpuscular Volume 93.7 Mean Corpuscular Hemoglobin 32.0 Mean Corpuscular Hemoglobin Concent 34.1 Red Cell Distribution Width 13.6 Platelet Count 206 Mean Platelet Volume 7.7 Blood Urea Nitrogen 16 Creatinine 0.56 Random Glucose 111 Calcium Level 9.0 Sodium Level 141 Potassium Level 3.6 Chloride Level 108 Carbon Dioxide Level 23.8 Anion Gap 9 Estimat Glomerular Filtration Rate 107 Agustin Vaz MD Apr 11, 2017 11:42
--- NOTE | 2017-04-11 13:15 | HHI.PR ---
Subjective Remarks She is sitting up in the chair and discussion was done regarding the use of an oral anticoagulation agent. Discussion was done by the patient and her with the data specialist on yesterday as well. She denies any major adverse changes. Objective - Vital Signs Date Time Temp Pulse Resp B/P (MAP) Pulse Ox O2 Delivery O2 Flow Rate FiO2 04/11/17 12:00 100 04/11/17 11:24 97.7 89 16 149/70 (96) 98 04/11/17 11:00 84 04/11/17 10:00 98 04/11/17 09:00 88 04/11/17 08:00 90 04/11/17 07:30 98.3 91 16 143/91 (108) 99 04/11/17 07:00 83 04/11/17 05:00 34 04/11/17 04:16 72 04/11/17 04:00 98.0 71 16 176/77 (110) 98 04/11/17 03:00 91 04/11/17 02:00 86 04/11/17 00:00 98.5 72 16 147/89 (108) 98 04/10/17 20:00 98.2 87 16 136/80 (98) 97 04/10/17 18:00 86 04/10/17 17:00 84 04/10/17 16:00 88 04/10/17 15:37 98.3 88 16 179/74 (109) 98 04/10/17 15:00 89 04/10/17 14:00 91 I/O 04/10/17 04/10/17 04/10/17 04/11/17 04/11/17 04/11/17 07:00 15:00 23:00 07:00 15:00 23:00 Intake Total 480 ml 840 ml 420 ml Output Total 900 ml Balance 480 ml 840 ml -480 ml Intake Oral 480 ml 840 ml 420 ml Output Urine Total 900 ml # Voids 2 4 3 # Bowel Movements 1 Result Diagram: 04/11/1744004/11/17440 Objective Remarks GENERAL: Alert and oriented. SKIN: Warm and dry. Ecchymoses are stable. HEAD: Normocephalic. EYES: No scleral icterus. No injection or drainage. NECK: Supple, trachea midline. No JVD or lymphadenopathy. CARDIOVASCULAR: Regular rate and rhythm without murmurs, gallops, or rubs. RESPIRATORY: Breath sounds equal bilaterally. No accessory muscle use. GASTROINTESTINAL: Abdomen soft, non-tender and nondistended. Bowel sounds are normal. MUSCULOSKELETAL: No cyanosis, or clubbing. Mild edema of the right lower extremity. BACK: Nontender without obvious deformity. No CVA tenderness. NEURO: No focal deficits to exam. A/P Assessment and Plan ASSESSMENT 1. Bilateral Pulmonary Emboli with Saddle Embolism. 2. Severe Symptomatic Dyspnea-improved. 3. Hypoxemia-resolved. 4. Cerebral Vascular Accident. 5. Hypertension. 6. Hyperlipidemia. 7. Hypothyroidism. 8. Diabetes Mellitus, Type 2. 9. Osteoarthritis. 10. Lumbar Disc Disease 11. Remote Stage 1B Adenocarcinoma of the Endometrium. 12. Remote Hurthle Cell Thyroid Cancer. PLAN 1. Continue with anticoagulation treatment. 2. Monitor vital signs closely. 3. Neurology and Hematology follow. 4. Activity out of bed with assistance. 5. Follow up laboratory assessment, as needed. 6. Consider Discharge Planning. 7. DVT, PE and PUD prophylaxis. Reyes Valenzuela MD Apr 11, 2017 13:15
[2017-04-11] MEDS: PRAVASTATIN SOD 40 MG TAB PO SCH (21:00)
[2017-04-12] VITALS (8 sets, daily range): BP systolic 128–181; BP diastolic 64–87; PULSE 76–92; RESP 16–18; TEMP 98–98.6; O2SAT 96–99
[2017-04-12] MEDS: CHLORHEXIDINE GLUCONATE 2 % 1 PACK (2 CLOTHS) TOP SCH (02:51)
[2017-04-12] MEDS: INSULIN NovoLIN REGULAR SUPPLEMENTAL SCALE SQ SCH ×4 (06:00→17:51)
[2017-04-12] MEDS: LEVOTHYROXINE SODIUM 125 MCG TAB PO SCH (06:44)
[2017-04-12] MEDS: BENZOCAINE-MENTHOL (SUGAR FREE) 15 MG-3.6 MG LOZENGE BUCCAL PRN ×3 (06:46→17:48)
[2017-04-12] MEDS: DOCUSATE SODIUM 50 MG/SENNA 8.6 MG TAB PO SCH (08:54)
[2017-04-12] MEDS: LISINOPRIL 20 MG TAB PO SCH (08:54)
[2017-04-12] MEDS: ASPIRIN 325 MG TAB PO SCH (08:54)
[2017-04-12] MEDS: ENOXAPARIN SODIUM 80 MG/0.8 ML SYRINGE SQ SCH (11:52)
--- NOTE | 2017-04-12 13:04 | PD.ONC.PN ---
Subjective Subjective Remarks Ms. Montiel is sitting in bedside chair in no distress. She reports that she is feeling much better than she felt prior to hospital admission. She is almost back to her baseline. She reports that she is looking forward to going home. Objective Data Date Time Temp Pulse Resp B/P (MAP) Pulse Ox O2 Delivery O2 Flow Rate FiO2 04/12/17 09:56 98.6 79 16 181/87 (118) 98 04/12/17 03:42 98.0 76 17 128/65 (86) 97 04/12/17 02:19 87 04/12/17 00:00 98.1 80 17 130/64 (86) 97 04/11/17 21:30 97.8 82 18 134/65 (88) 97 04/11/17 18:32 98.1 88 18 132/70 (90) 98 04/11/17 17:00 97 04/11/17 16:00 87 04/11/17 15:31 98.5 82 16 151/68 (95) 97 04/11/17 15:00 85 04/11/17 14:00 84 04/11/17 13:00 86 04/12/17 04/12/17 04/12/17 07:00 15:00 23:00 Intake Total 220 ml Balance 220 ml Result Diagram: 04/11/1744004/11/17440 Administered Medications Medications (Trade) Dose Ordered Sig/Roosevelt Route PRN Reason Start Time Stop Time Status Last Admin Dose Admin Potassium Chloride 100 ml @ 50 mls/hr Q2H PRN IV For Potassium 2.8 - 3.2 mEq/L 04/07/17 13:15 04/08/17 13:16 Insulin Human Regular (NovoLIN R SUPPLEMENTAL SCALE) 1 Q6HR SQ 04/07/17 18:00 04/09/17 23:23 Senna/Docusate Sodium (Laura-Colace) 1 tab BID PO 04/07/17 21:00 04/11/17 22:17 Aspirin (Aspirin) 325 mg DAILY PO 04/08/17 10:45 04/12/17 08:54 Enoxaparin Sodium (Lovenox Inj) 70 mg Q12H SQ 04/08/17 10:45 04/12/17 11:52 Pravastatin Sodium (Pravachol) 40 mg HS PO 04/08/17 21:00 04/10/17 21:26 Levothyroxine Sodium (Synthroid) 125 mcg DAILY@0600 PO 04/09/17 06:00 04/12/17 06:44 Benzocaine/Menthol (Cepacol Extra Sung (Sugar Free)) 1 lozenge Q4H PRN BUCCAL THROAT DISCOMFORT 04/08/17 19:00 04/12/17 11:52 Lisinopril (Prinivil) 20 mg DAILY PO 04/10/17 13:15 04/12/17 08:54 Objective Remarks GENERAL: Well-nourished, well-developed patient. SKIN: Warm and dry. HEAD: Normocephalic. EYES: No scleral icterus. NECK: Supple, trachea midline. LYMPHATIC: No adenopathy. CARDIOVASCULAR: Regular rate and rhythm without murmurs. RESPIRATORY: Breath sounds equal bilaterally. No accessory muscle use. GASTROINTESTINAL: Abdomen soft, non-tender, nondistended. EXTREMITIES: No edema. NEUROLOGICAL: No obvious focal deficit. Awake, alert, and oriented x3. PSYCHIATRIC: Appropriate mood and affect; insight and judgment normal. Assessment/Plan Assessment 1. Bilateral pulmonary embolism with saddle embolus: evidence of right heart strain. Unable to receive to lytic therapy due to CVA. Discusses risks versus benefits of anticoagulation with warfarin vs rivaroxaban vs apixaban. She has decided to take apixaban. Apixaban dosing as follows: apixaban 10 mg PO BID for seven days followed by 5 mg PO BID. Apixban will be started when next dose of lovenox is due. 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 No history of recent travel, surgery or illness. She will need a minimum of three of months anticoagulation and will likely need indefinite anticoagulation. Will schedule close follow up in hematology clinic for further management of VTE. 2. CVA: acute vs subacute. Followed by neurology. Currently on full dose ASA for antiplatelet therapy. Risks vs benefits discussion as she has increased risk of bleeding with full intensity anticoagulation and antiplatelet therapy. Mairchuy Call MD Apr 12, 2017 13:04
[2017-04-12] MEDS ORDERED: APIXABAN 5 MG TABLET PO ONE (20:00)
[2017-04-12] MEDS ORDERED: traMADol HCL 50 MG TAB PO SCH (21:45)
[2017-04-12] MEDS: PRAVASTATIN SOD 40 MG TAB PO SCH (23:10)
[2017-04-13] VITALS (8 sets, daily range): BP systolic 72–182; BP diastolic 53–85; PULSE 89–109; RESP 16–19; TEMP 97.8–98.4; O2SAT 94–100
[2017-04-13] MEDS: BENZOCAINE-MENTHOL (SUGAR FREE) 15 MG-3.6 MG LOZENGE BUCCAL PRN ×3 (00:10→17:55)
[2017-04-13] MEDS: LEVOTHYROXINE SODIUM 125 MCG TAB PO SCH (05:18)
[2017-04-13] MEDS: INSULIN NovoLIN REGULAR SUPPLEMENTAL SCALE SQ SCH ×5 (06:00→23:57)
--- NOTE | 2017-04-13 08:42 | HHI.PR ---
Review/Management Daily Summary 04/11 seen earlier today very much stable anticoagulation for PE and ischemic stroke PT for OOB activities 04/13 doing well neuro cloud alert and oriented moves limbs well bedside speech nl cx some lower abdomen pain/strain upon motion! apixaban will sign off Subjective Subjective Comments No acute events reported No headache Active Medications Current Medications Medications (Trade) Dose Ordered Sig/Roosevelt Route Start Time Stop Time Status Last Admin (D50w (Vial) Inj) 25 ml UNSCH PRN IV PUSH 04/07/17 13:15 (NovoLIN R SUPPLEMENTAL SCALE) 1 Q6HR SQ 04/07/17 18:00 04/09/17 23:23 (Zofran Inj) 4 mg Q6H PRN IV PUSH 04/07/17 13:15 (Duoneb Neb) 1 ampule Q2HR NEB PRN INH 04/07/17 13:15 (Milk Of Magnesia Liq) 30 ml Q12H PRN PO 04/07/17 13:15 (Dulcolax Supp) 10 mg DAILY PRN RECTAL 04/07/17 13:15 (Pravachol) 40 mg HS PO 04/08/17 21:00 04/12/17 23:10 (Synthroid) 125 mcg DAILY@0600 PO 04/09/17 06:00 04/13/17 05:18 (Cepacol Extra Sung (Sugar Free)) 1 lozenge Q4H PRN BUCCAL 04/08/17 19:00 04/13/17 00:10 (Prinivil) 20 mg DAILY PO 04/10/17 13:15 04/12/17 08:54 (Eliquis) 10 mg BID PO 04/13/17 08:00 Allergies Allergies Coded Allergies No Known Allergies (Verified Allergy, Unknown, 04/07/17) Exam I&O / VS Vital Signs Date Time Temp Pulse Resp B/P (MAP) Pulse Ox O2 Delivery O2 Flow Rate FiO2 04/13/17 05:56 98.4 89 17 164/85 (111) 100 04/13/17 00:20 98.4 102 17 151/70 (97) 97 04/12/17 20:30 98.6 91 17 155/75 (101) 96 04/12/17 18:56 98.1 92 18 144/69 (94) 98 04/12/17 14:02 98.2 85 18 151/68 (95) 99 04/12/17 09:56 98.6 79 16 181/87 (118) 98 Agustin Vaz MD Apr 13, 2017 08:42
[2017-04-13] MEDS: APIXABAN 5 MG TABLET PO SCH ×2 (09:00→10:50)
[2017-04-13] MEDS: LISINOPRIL 20 MG TAB PO SCH (10:01)
[2017-04-13] MEDS ORDERED: DIATRIZOATE MEGLUM/DIATRIZOATE SOD 9 ML CUP PO ONE (11:00)
[2017-04-13] MEDS ORDERED: IOHEXOL 350 MG/ML 10 ML VIAL (for RAD DIAG) IVCONTRAST ONE (16:13)
--- NOTE | 2017-04-13 16:54 | RADRPT ---
EXAM DATE/TIME: 04/13/2017 15:58 [facility] COMPARISON: No previous studies available for comparison. INDICATIONS : Left lower quadrant pain. IV CONTRAST: 75 cc Omnipaque 350 (iohexol) IV ORAL CONTRAST: Prescribed oral contrast ingested. RADIATION DOSE: 16.49 CTDIvol (mGy) MEDICAL HISTORY : Carcinoma, thyroid. Hypertension. Deep venous thrombosis.Uterine cancer, stroke. SURGICAL HISTORY : Appendectomy. Cholecystectomy.Hysterectomy.Bilateral hip replacements. ENCOUNTER: Initial ACUITY: 1 day PAIN SCALE: 8/10 LOCATION: Left lower quadrant TECHNIQUE: Volumetric scanning of the abdomen and pelvis was performed. Using automated exposure control and ad justment of the mA and/or kV according to patient size, radiation dose was kept as low as reasonably achievable to obtain optimal diagnostic quality images. DICOM format image data is available electro nically for review and comparison. FINDINGS: LOWER LUNGS: The visualized lower lungs are clear. LIVER: Homogeneous density without lesion. There is no dilation of the biliary tree. Gallbladder has been r emoved. SPLEEN: Normal size without lesion. PANCREAS: Within normal limits. KIDNEYS: Normal in size and shape. There is no mass, stone or hydronephrosis. ADRENAL GLANDS: Within normal limits. VASCULAR: There is no aortic aneurysm. BOWEL/MESENTERY: The stomach, small bowel, and colon demonstrate no acute abnormality. There is no free intraperitone al air or fluid. ABDOMINAL WALL: Complex fluid collections are identified in the left anterior abdominal wall on the rectus muscles. T here is a 3.5 x 6.3 x 4.8 collection to the left of the umbilicus. Fluid fluid level is identified wi thin the collection. A larger collection is identified in the left side of the pelvis measuring 6.3 x 11 x 14 cm in s ize. This collection also contains a fluid fluid level with hyperdense dependent fluid. It extends fr om the anterior margin of the left ilium to the midline. Both collections appear to be extraperitoneal in location. RETROPERITONEUM: There is no lymphadenopathy. BLADDER: No wall thickening or mass. REPRODUCTIVE: Within normal limits. INGUINAL: There is no lymphadenopathy or hernia. MUSCULOSKELETAL: Bilateral hip prostheses are noted in place. CONCLUSION: 1. Left-sided anterior abdominal and pelvic wall complex fluid collections most characteristic of hem atomas. 2. Status post cholecystectomy. 3. No evidence of acute process within the intraperitoneal cavity. 4. Status post bilateral hip replacements. Yfn De Oliveira MD on April 13, 2017 at 16:45 Board Certified Radiologist. This report was verified electronically.
[2017-04-13] MEDS ORDERED: cloNIDine HCL 0.2 MG TAB PO ONE (18:00)
[2017-04-13] MEDS: ACETAMINOPHEN/HYDROcodone 325 MG/5 MG TAB PO PRN (18:24)
[2017-04-13] MEDS: PRAVASTATIN SOD 40 MG TAB PO SCH (22:24)
[2017-04-14] VITALS (8 sets, daily range): BP systolic 80–117; BP diastolic 52–62; PULSE 79–105; RESP 16–18; TEMP 97.5–99; O2SAT 94–98
[2017-04-14] MEDS: INSULIN NovoLIN REGULAR SUPPLEMENTAL SCALE SQ SCH ×3 (06:00→17:33)
[2017-04-14] MEDS: LEVOTHYROXINE SODIUM 125 MCG TAB PO SCH (06:08)
--- NOTE | 2017-04-14 06:51 | MB ---
cc: NELI CARMICHAEL DATE OF CONSULTATION 04/13/2017 REASON FOR CONSULTATION Abdominal wall hematoma. PERSON REQUESTING CONSULTATION Dr. Yonis Valenzuela HISTORY OF PRESENT ILLNESS The patient is a 71-year-old female who was recently admitted to [facility] for a pulmonary embolism. The patient has multiple other medical comorbidities including uterine and thyroid cancer, history DVT, hypothyroidism, hypertension. The patient does have a history of chronic falls at home with no recent major traumatic injuries. The patient tripped and fell prior to her admission several days ago. She did not seek medical attention at that time, but after developing shortness of breath and hypoxemia, she presented to the emergency department. At that point in time, she was found to have subtle embolism on CT pulmonary angiogram. Also, she was noted to have a subacute infarct of her Sylvian region on her brain MRI. The patient did undergo treatment with anticoagulation and heparin drip at that time. Since that time, the patient has developed increasing pain in her left lower abdomen over the last 24 hours. The patient states she is able tolerate a diet and is having bowel function. CT scan of abdomen and pelvis was ordered on 04/13/17 and 1651 which shows no acute process with the exception of pelvic wall fluid collection consistent with hematoma and multiple areas of smaller hematomas of varying ages. The general surgery was consulted for evaluation of abdominal hematoma. The patient remains hemodynamically stable and hemoglobin on 04/11 was 12.6 and stable. REVIEW OF SYSTEMS A 12-point review of systems was discussed with the patient and is negative except for symptoms related to the above problems. PAST MEDICAL HISTORY 1. Uterine and thyroid cancers 2. DVT 3. CVA 4. Hypothyroidism 5. Hypertension as above PAST SURGICAL HISTORY 1. Bilateral hip replacement 2. Hysterectomy 3. Thyroid surgery ALLERGIES NO KNOWN DRUG ALLERGIES. MEDICATIONS 1. Hydrocodone 2. Lisinopril 3. Levothyroxine 4. Pravastatin 5. Insulin 6. Zofran 7. Milk of magnesia 8. She was recently on Aspirin and Heparin, however this was discontinued. SOCIAL HISTORY The patient denies alcohol, tobacco, or illicit drug use. FAMILY HISTORY No history of previous coagulation disorders. PHYSICAL EXAMINATION VITAL SIGNS: Blood pressure 182/68, heart rate 100, temperature 98.2 degrees. GENERAL: The patient is a female. She appears a chronically and acutely ill. HEAD: Normocephalic. EYES: Pupils round, reactive to accommodation and light. EARS, NOSE AND THROAT: Oral cavity is clear. Airway is patent. NECK: Supple. No JVD. LUNGS: Breath sounds present bilaterally. Nonlabored breathing pattern. HEART: Regular rate and rhythm. ABDOMEN: Soft, tender to palpation in the left lower quadrant and there are multiple areas of ecchymosis throughout the patient's body, face, chest, abdomen and pelvis of various ages. The overlying skin of the patient's left hip and abdomen is with mild ecchymosis, but warm, perfused and viable without any signs of infection or any tissue necrosis. The patient has what seems to be acute and chronic edema bilateral lower extremities. NEUROLOGIC: The patient is awake, alert, and oriented x3, nonfocal peripheral exam. Cranial II-XII grossly intact. ASSESSMENT/PLAN The patient is a 71-year-old female with a history of falls and now with a recent CVA and recent subtle pulmonary embolism, recently on anticoagulation and with multiple abdominal hematomas. Currently the patient's hematomas are small to moderate in size. They have no clinical signs or suspicion of being infected and there not causing any sign of tissue necrosis at this time. There is no acute indication to intervene in a surgical manner on these hematomas at this point in time. This would likely be a further source of bleeding if the patient is going to require some level of anticoagulation. However, if the patient does developed substantial tissue necrosis or signs of infection, a coagulation window and surgical intervention may be required, although this is typically rarely required. Thank you very much for this consultation. We will follow along with this patient and be of assistance if needed. These hematomas likely will resolve with continued supportive care. MD LEIGH Betancur/CHETAN /9:30 PM /6:33 AM
[2017-04-14 07:44] LABS: BASOPHIL % 0.4 % (0.0-2.0); EOSINOPHIL % 0.3 % (0.0-4.0); HEMATOCRIT 28.6 % (35.0-46.0); HEMO FLAGS DIFF FINAL; LYMPHOCYTE # 1.9 TH/MM3 (1.0-4.8); MEAN CELL VOLUME 96.4 FL (80.0-100.0); MEAN CORPUSCULAR HEMOGLOBIN 32.3 PG (27.0-34.0); MEAN CORPUSCULAR HGB CONC 33.5 % (32.0-36.0); MONO % 11.6 % (0.0-8.0); NEUT % 68.7 % (16.0-70.0); PLATELET COUNT 249 TH/MM3 (150-450); RED BLOOD COUNT 2.97 MIL/MM3 (4.00-5.30); RED CELL DISTRIBUTION WIDTH 13.8 % (11.6-17.2); WHITE BLOOD COUNT 10.2 TH/MM3 (4.0-11.0)
[2017-04-14 07:53] LABS: APTT (PATIENT) 22.9 SEC (24.3-30.1); PROTHROMBIN TIME - PATIENT 10.7 SEC (9.8-11.6)
[2017-04-14 08:11] LABS: BICARBONATE 27.5 MEQ/L (21.0-32.0); MAGNESIUM 2.4 MG/DL (1.5-2.5); POTASSIUM 4.1 MEQ/L (3.5-5.1)
--- NOTE | 2017-04-14 08:14 | HHI.PR ---
Subjective Remarks Mrs. Montiel had some abdomino-pelvic pain and had CT Scan of the Abdomen and Pelvis done. The findings revealed hematomas of the anterior abdominal wall and also for the left pelvic wall. Her anticoagulation was placed on temporary hold with the Director Career Services and Neurologist to render dispositions regarding her current treatment in the setting of the hemorrhage and the future use of Eliquis and the use vs nonuse of Aspirin. She is a serious high risk with consideration of Pulmonary Embolism and Cerebral Vascular Accident. She reports feeling much better this morning in comparison to the day prior. Objective - Vital Signs Date Time Temp Pulse Resp B/P (MAP) Pulse Ox O2 Delivery O2 Flow Rate FiO2 04/14/17 05:30 98.0 88 16 100/62 (75) 98 04/14/17 00:00 97.5 91 18 80/52 (61) 95 04/13/17 20:45 97.8 98 19 72/53 (59) 95 04/13/17 17:34 98.2 100 18 182/68 (106) 98 04/13/17 13:02 98.0 98 18 162/79 (106) 94 04/13/17 12:57 109 04/13/17 09:39 97.9 99 16 165/74 (104) 95 I/O 04/13/17 04/13/17 04/13/17 04/14/17 04/14/17 04/14/17 07:00 15:00 23:00 07:00 15:00 23:00 Intake Total 360 ml 1120 ml 300 ml Balance 360 ml 1120 ml 300 ml Intake Oral 360 ml 1120 ml 300 ml # Voids 4 4 1 # Bowel Movements 0 0 Result Diagram: 04/14/17 0731 04/11/17 0441 Objective Remarks GENERAL: Alert and oriented to exam. SKIN: Warm and dry. HEAD: Normocephalic. Atraumatic. EYES: No scleral icterus. No injection or drainage. NECK: Supple, trachea midline. No JVD or lymphadenopathy. CARDIOVASCULAR: Regular rate and rhythm without murmurs, gallops, or rubs. RESPIRATORY: Breath sounds equal bilaterally. No accessory muscle use. GASTROINTESTINAL: Abdomen soft and nondistended. There is mild tenderness for the anterior abdominal wall and the LLQ area. No mass is palpated. MUSCULOSKELETAL: No cyanosis or clubbing. There is mild edema for the right lower extremity. Pulses are at 3+/4+ for both lower extremities. BACK: Nontender without obvious deformity. No CVA tenderness. NEURO: There are no lateralizing or focal deficits. A/P Assessment and Plan ASSESSMENT 1. Hematomas of the Abdominal and Pelvic Peterson. 2. Acute Blood Loss Anemia. 3. Acute Kidney Injury. 4. Bilateral Pulmonary Emboli with Saddle Embolism. 5. Deep Vein Thrombosis of the Right Lower Extremity. 6. Severe Symptomatic Dyspnea-improved. 7. Hypoxemia-resolved. 8. Cerebral Vascular Accident. 9. Hypertension. 10. Hyperlipidemia. 11. Hypothyroidism. 12. Diabetes Mellitus, Type 2. 13. Osteoarthritis. 14. Lumbar Disc Disease. 15. 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 PLAN 1. Anticoagulation and Antiplatelet therapy is on hold. 2. Follow up laboratory assessment with monitoring of hgb/hct and renal function. 3. Neurology and Hematology to render dispositions of treatment. 4. Activity out of bed as tolerated. 5. DVT, PE and PUD prophylaxis with use of Sequential Compression Device. Reyes Valenzuela MD Apr 14, 2017 08:14
[2017-04-14] MEDS: LISINOPRIL 20 MG TAB PO SCH (08:55)
--- NOTE | 2017-04-14 11:22 | RADRPT ---
EXAM DATE/TIME: 04/14/2017 10:10 [facility] COMPARISON: No previous studies available for comparison. EXTERNAL COMPARISON : [facility], US LEG, LEFT VENOUS DOPPLER November 19, 2007. [facility], US LEG, LEFT VENOU S DOPPLER September 06, 2006. INDICATIONS : Thrombosis. Pulmonary embolism. MEDICAL HISTORY : Hypercholesterolemia. Hypertension. Deep venous thrombosis. Cerebrovasculal accident. Uterine cancer. Arthritis. Diabetes. SURGICAL HISTORY : Cholecystectomy. section. Hysterectomy.Bilateral hip replacment. Thyroidectomy. ENCOUNTER: Initial ACUITY: 1 week PAIN SCORE: 3/10 LOCATION: Bilateral legs. TECHNIQUE: Venous ultrasound of the left and right leg was performed from the inguinal ligament to the proximal calf. Real-time, color Doppler and spectral tracing, compression and augmentation techniques were us ed. FINDINGS: RIGHT LEG: Occlusive and nonocclusive thrombus is seen throughout the superficial femoral vein extending down in to the popliteal. Trifurcation tributaries remain patent, however. LEFT LEG: There is normal compressibility of the deep venous system from the inguinal region to the proximal ca lf. No echogenic clot is seen in the lumen of the common femoral, femoral, popliteal, and posterior tibial veins. There is a normal response of the venous system to proximal and distal augmentation an d respiration. CONCLUSION: 1. Extensive occlusive and nonocclusive DVT in the right lower extremity throughout the superficial f emoral vein and popliteal vein. 2. No DVT on the left. Missael Quigley MD on April 14, 2017 at 11:17 Board Certified Radiologist. This report was verified electronically.
[2017-04-14] MEDS: BENZOCAINE-MENTHOL (SUGAR FREE) 15 MG-3.6 MG LOZENGE BUCCAL PRN (11:40)
[2017-04-14] MEDS: ACETAMINOPHEN/HYDROcodone 325 MG/5 MG TAB PO PRN ×2 (12:51→17:03)
[2017-04-14] MEDS ORDERED: LORazepam 2 MG/ML VIAL ONE (13:58)
[2017-04-14] MEDS ORDERED: ceFAZolin 2 GM PREMIX 50 ML ONE (14:34)
[2017-04-14] MEDS ORDERED: IOHEXOL 350 MG/ML 100 ML BTL (for RAD DIAG) OTHER ONE (15:15)
--- NOTE | 2017-04-14 16:04 | HHI.PR ---
Subjective Subjective Notes Just back from getting IVC filter No issue overnight; reports pain is better Objective Vitals/I&O Vital Signs Date Time Temp Pulse Resp B/P (MAP) Pulse Ox O2 Delivery O2 Flow Rate FiO2 04/14/17 12:52 98.4 91 18 109/53 (71) 94 Labs Laboratory Tests Test 04/14/17 07:31 White Blood Count 10.2 Red Blood Count 2.97 Hemoglobin 9.6 Hematocrit 28.6 Mean Corpuscular Volume 96.4 Mean Corpuscular Hemoglobin 32.3 Mean Corpuscular Hemoglobin Concent 33.5 Red Cell Distribution Width 13.8 Platelet Count 249 Mean Platelet Volume 8.2 Neutrophils (%) (Auto) 68.7 Lymphocytes (%) (Auto) 19.0 Monocytes (%) (Auto) 11.6 Eosinophils (%) (Auto) 0.3 Basophils (%) (Auto) 0.4 Neutrophils # (Auto) 7.0 Lymphocytes # (Auto) 1.9 Monocytes # (Auto) 1.2 Eosinophils # (Auto) 0.0 Basophils # (Auto) 0.0 CBC Comment DIFF FINAL Differential Comment Prothrombin Time 10.7 Prothromb Time International Ratio 1.0 Activated Partial Thromboplast Time 22.9 Blood Urea Nitrogen 28 Creatinine 1.86 Random Glucose 111 Calcium Level 8.8 Magnesium Level 2.4 Sodium Level 137 Potassium Level 4.1 Chloride Level 101 Carbon Dioxide Level 27.5 Anion Gap 9 Estimat Glomerular Filtration Rate 27 Cardiovascular: Regular Lungs: Clear Abdomen: Other (abdomen soft; well healed midline incision with some mild bruising; areas of ecchymosis; no areas of concern for necorisis ) Extremities: No edema Narrative Exam RIGHT carotid dressing from IVC filter in place A/P Assessment and Plan 71 year old female with history of anticoagulation and PEs; falls with abdominal wall hematomas -No concern at this time for any tissue necrosis or infection -Regular diet -Pain control Maria M Corea Apr 14, 2017 16:04
--- NOTE | 2017-04-14 16:08 | RADRPT ---
EXAM DATE/TIME: 04/14/2017 15:09 [facility] COMPARISON: No previous studies available for comparison. INDICATIONS : Patient with history of DVT, PE. MEDICAL HISTORY : 1. Uterine cancer 2.HTN 3. DM 4. Thyroid cancer SURGICAL HISTORY : 1. Cholecystectomy 2. Cersarean x2 3. Hysterectomy 4. Total throidectomy 5. Bilateral hip arthroplasties ENCOUNTER: Initial ACUITY: 1 week PAIN SCORE: 2/10 LOCATION: Left abdomen FLUORO TIME: 2.2 minutes IMAGE SERIES: 2 ACCESS SITE: Right Internal jugular vein SEDATION TIME: 30 minutes CONTRAST: 30 cc Omnipaque (iohexol) 350 MEDICATION(S): 1.) 25 mcg fentanyl (Sublimaze) IV 2.) 1 mg lorazepam (Ativan) IV DEVICE(S): 1.) Inferior vena cava Bard Bibb filter. This is a removable filter. PROCEDURE : 1. Ultrasound-guided venipuncture. 2. Inferior venacavogram. 3. Inferior vena cava filter placement. 4. Conscious sedation with continuous EKG and oximetry monitoring. The risks, benefits and alternatives to the procedure were explained and verbal and written consent w as obtained. The site was prepped in sterile fashion. Full sterile technique was used, including ca p, mask, sterile gloves and gown and a large sterile sheet. Hand hygiene and 2% chlorhexidine and/or betadine/alcohol prep was utilized per protocol for cutaneous antisepsis. Sterile gel and sterile p robe cover were utilized for ultrasound guidance. The skin and subcutaneous tissues were infiltrated with local anesthetic solution. With ultrasound and fluoroscopic guidance the targeted vein was punctured and a vascular sheath was p laced. Inferior venacavogram was performed to demonstrate level of renal veins. No caval thrombus was identified. The prescribed filter was deployed in the infrarenal inferior vena cava. Following deplo yment the filter was identified in good position. Conscious sedation was performed with the prescribed dosages and duration as above in the presence of an independent trained radiology nurse to assist in the monitoring of the patient. EKG and oximetry remained stable throughout the procedure. The patient tolerated the procedure well and there were n o complications. The patient was sent to post anesthesia recovery in stable condition. CONCLUSION: Uncomplicated inferior vena cava filter placement as above. This is a removable filter. Missael Quigley MD on April 14, 2017 at 16:05 Board Certified Radiologist. This report was verified electronically.
--- NOTE | 2017-04-14 16:52 | HHI.PR ---
Review/Management Daily Summary 04/11 seen earlier today very much stable anticoagulation for PE and ischemic stroke PT for OOB activities 04/13 doing well neuro cloud alert and oriented moves limbs well bedside speech nl cx some lower abdomen pain/strain upon motion! apixaban will sign off 04/14 I reviewed the notes about the abdominal/pelvis wall hematomas and imaging findings I suspect her stroke to be from embolism and she's had PE, DVT, possibly hypercoagulable state Despite of the hematomas, considering the high risk for additional stroke and other embolic/thrombotic complications, I would not abandon anticoagulation all together unless there is more bleeding phenomena, possibly reduce eliquis dosage Dr Canas covering weekend prn Subjective Subjective Comments message from treating physician received on my cell phone chart seen but i did not have a chance to see pt today Active Medications Current Medications Medications (Trade) Dose Ordered Sig/Roosevelt Route Start Time Stop Time Status Last Admin (D50w (Vial) Inj) 25 ml UNSCH PRN IV PUSH 04/07/17 13:15 (NovoLIN R SUPPLEMENTAL SCALE) 1 Q6HR SQ 04/07/17 18:00 04/09/17 23:23 (Zofran Inj) 4 mg Q6H PRN IV PUSH 04/07/17 13:15 (Duoneb Neb) 1 ampule Q2HR NEB PRN INH 04/07/17 13:15 (Milk Of Magnesia Liq) 30 ml Q12H PRN PO 04/07/17 13:15 (Dulcolax Supp) 10 mg DAILY PRN RECTAL 04/07/17 13:15 (Pravachol) 40 mg HS PO 04/08/17 21:00 04/13/17 22:24 (Synthroid) 125 mcg DAILY@0600 PO 04/09/17 06:00 04/14/17 06:08 (Cepacol Extra Sung (Sugar Free)) 1 lozenge Q4H PRN BUCCAL 04/08/17 19:00 04/14/17 11:40 (Prinivil) 20 mg DAILY PO 04/10/17 13:15 04/13/17 10:01 (Eliquis) 10 mg BID PO 04/13/17 08:00 Future Hold 04/13/17 10:50 (Calvin 5-325 Mg) 1 tab Q4H PRN PO 04/13/17 18:00 04/14/17 12:51 Allergies Allergies Coded Allergies No Known Allergies (Verified Allergy, Unknown, 04/07/17) Exam I&O / VS 04/14/17 04/14/17 04/15/17 15:00 23:00 07:00 Intake Total 240 ml Balance 240 ml Intake Oral 240 ml # Voids 1 2 Vital Signs Date Time Temp Pulse Resp B/P (MAP) Pulse Ox O2 Delivery O2 Flow Rate FiO2 04/14/17 16:36 98.5 96 18 117/53 (74) 95 04/14/17 12:52 98.4 91 18 109/53 (71) 94 04/14/17 10:44 79 04/14/17 08:49 99.0 94 18 105/53 (70) 96 04/14/17 05:30 98.0 88 16 100/62 (75) 98 04/14/17 00:00 97.5 91 18 80/52 (61) 95 04/13/17 20:45 97.8 98 19 72/53 (59) 95 04/13/17 18:00 92 04/13/17 17:34 98.2 100 18 182/68 (106) 98 Objective Radiology Results Last 48 hours Impressions Lower Extremity Ultrasound 04/14/17 0000 Signed Impressions: Service Date/Time: Friday, April 14, 2017 10:10 - CONCLUSION: 1. Extensive occlusive and nonocclusive DVT in the right lower extremity throughout the superficial femoral vein and popliteal vein. 2. No DVT on the left. Missael Quigley MD IVC Filter Placement X-Ray 04/14/17 0000 Signed Impressions: Service Date/Time: Friday, April 14, 2017 15:09 - CONCLUSION: Uncomplicated inferior vena cava filter placement as above. This is a removable filter. Missael Quigley MD Abdomen/Pelvis CT 04/13/17 0000 Signed Impressions: Service Date/Time: April 15:58 - CONCLUSION: 1. Left-sided anterior abdominal and pelvic wall complex fluid collections most characteristic of hematomas. 2. Status post cholecystectomy. 3. No evidence of acute process within the intraperitoneal cavity. 4. Status post bilateral hip replacements. Yfn De Oliveira MD Micro and Labs Laboratory Tests Test 04/14/17 07:31 White Blood Count 10.2 Red Blood Count 2.97 Hemoglobin 9.6 Hematocrit 28.6 Mean Corpuscular Volume 96.4 Mean Corpuscular Hemoglobin 32.3 Mean Corpuscular Hemoglobin Concent 33.5 Red Cell Distribution Width 13.8 Platelet Count 249 Mean Platelet Volume 8.2 Neutrophils (%) (Auto) 68.7 Lymphocytes (%) (Auto) 19.0 Monocytes (%) (Auto) 11.6 Eosinophils (%) (Auto) 0.3 Basophils (%) (Auto) 0.4 Neutrophils # (Auto) 7.0 Lymphocytes # (Auto) 1.9 Monocytes # (Auto) 1.2 Eosinophils # (Auto) 0.0 Basophils # (Auto) 0.0 CBC Comment DIFF FINAL Differential Comment Prothrombin Time 10.7 Prothromb Time International Ratio 1.0 Activated Partial Thromboplast Time 22.9 Blood Urea Nitrogen 28 Creatinine 1.86 Random Glucose 111 Calcium Level 8.8 Magnesium Level 2.4 Sodium Level 137 Potassium Level 4.1 Chloride Level 101 Carbon Dioxide Level 27.5 Anion Gap 9 Estimat Glomerular Filtration Rate 27 Agustin Vaz MD Apr 14, 2017 16:52
--- NOTE | 2017-04-14 17:13 | PD.ONC.PN ---
Subjective Subjective Remarks Patient is resting comfortably at bedside. She reports that she is having significant abdominal pain. She reports that this pain has been present for approximately the past two days but has significantly worsened over the past [address] of the abdomen and pelvis obtained which revealed abdominal wall hematoma of 3.5 x6.3 x 4.8 cm and a pelvic hematoma of [id number] cm. She had a decline in hemoglobin from 12.6 to 9.6. Creatinine increased. Objective Data Date Time Temp Pulse Resp B/P (MAP) Pulse Ox O2 Delivery O2 Flow Rate FiO2 04/14/17 16:36 98.5 96 18 117/53 (74) 95 04/14/17 12:52 98.4 91 18 109/53 (71) 94 04/14/17 10:44 79 04/14/17 08:49 99.0 94 18 105/53 (70) 96 04/14/17 05:30 98.0 88 16 100/62 (75) 98 04/14/17 00:00 97.5 91 18 80/52 (61) 95 04/13/17 20:45 97.8 98 19 72/53 (59) 95 04/13/17 18:00 92 04/13/17 17:34 98.2 100 18 182/68 (106) 98 04/14/17 04/14/17 04/14/17 07:00 15:00 23:00 Intake Total 300 ml 240 ml Balance 300 ml 240 ml Result Diagram: 04/14/17 0731 04/14/17 0731 Laboratory Results Laboratory Tests Test 04/14/17 07:31 White Blood Count 10.2 TH/MM3 Red Blood Count 2.97 MIL/MM3 Hemoglobin 9.6 GM/DL Hematocrit 28.6 % Mean Corpuscular Volume 96.4 FL Mean Corpuscular Hemoglobin 32.3 PG Mean Corpuscular Hemoglobin Concent 33.5 % Red Cell Distribution Width 13.8 % Platelet Count 249 TH/MM3 Mean Platelet Volume 8.2 FL Neutrophils (%) (Auto) 68.7 % Lymphocytes (%) (Auto) 19.0 % Monocytes (%) (Auto) 11.6 % Eosinophils (%) (Auto) 0.3 % Basophils (%) (Auto) 0.4 % Neutrophils # (Auto) 7.0 TH/MM3 Lymphocytes # (Auto) 1.9 TH/MM3 Monocytes # (Auto) 1.2 TH/MM3 Eosinophils # (Auto) 0.0 TH/MM3 Basophils # (Auto) 0.0 TH/MM3 CBC Comment DIFF FINAL Differential Comment Prothrombin Time 10.7 SEC Prothromb Time International Ratio 1.0 RATIO Activated Partial Thromboplast Time 22.9 SEC Blood Urea Nitrogen 28 MG/DL Creatinine 1.86 MG/DL Random Glucose 111 MG/DL Calcium Level 8.8 MG/DL Magnesium Level 2.4 MG/DL Sodium Level 137 MEQ/L Potassium Level 4.1 MEQ/L Chloride Level 101 MEQ/L Carbon Dioxide Level 27.5 MEQ/L Anion Gap 9 MEQ/L Estimat Glomerular Filtration Rate 27 ML/MIN Imaging Studies Last 24 hours Impressions Lower Extremity Ultrasound 04/14/17 0000 Signed Impressions: Service Date/Time: Friday, April 14, 2017 10:10 - CONCLUSION: 1. Extensive occlusive and nonocclusive DVT in the right lower extremity throughout the superficial femoral vein and popliteal vein. 2. No DVT on the left. Missael Quigley MD IVC Filter Placement X-Ray 04/14/17 0000 Signed Impressions: Service Date/Time: Friday, April 14, 2017 15:09 - CONCLUSION: Uncomplicated inferior vena cava filter placement as above. This is a removable filter. Missael Quigley MD Administered Medications Medications (Trade) Dose Ordered Sig/[place] Route PRN Reason Start Time Stop Time Status Last Admin Dose Admin Insulin Human Regular (NovoLIN R SUPPLEMENTAL SCALE) 1 Q6HR SQ 04/07/17 18:00 04/09/17 23:23 Pravastatin Sodium (Pravachol) 40 mg HS PO 04/08/17 21:00 04/13/17 22:24 Levothyroxine Sodium (Synthroid) 125 mcg DAILY@0600 PO 04/09/17 06:00 04/14/17 06:08 Benzocaine/Menthol (Cepacol Extra Sung (Sugar Free)) 1 lozenge Q4H PRN BUCCAL THROAT DISCOMFORT 04/08/17 19:00 04/14/17 11:40 Lisinopril (Prinivil) 20 mg DAILY PO 04/10/17 13:15 04/13/17 10:01 Apixaban (Eliquis) 10 mg BID PO 04/13/17 08:00 Future Hold 04/13/17 10:50 Acetaminophen/ Hydrocodone Bitart ([place] 5-325 Mg) 1 tab Q4H PRN PO PAIN SCALE 1 TO 10 04/13/17 18:00 04/14/17 12:51 Objective Remarks GENERAL: Well-nourished, well-developed patient, sitting in bedside chair in mild distress due to pain SKIN: multiple areas of bruising in various state of healing including face and abdominal wall HEAD: Normocephalic. EYES: No scleral icterus. NECK: Supple, trachea midline. LYMPHATIC: No adenopathy. CARDIOVASCULAR: Regular rate and rhythm without murmurs. RESPIRATORY: Breath sounds equal bilaterally. No accessory muscle use. GASTROINTESTINAL: Abdomen soft, non-tender, brusing and tenderness at abdomen EXTREMITIES: No cyanosis, or edema. MUSCULOSKELETAL: Adequate muscle tone. NEUROLOGICAL: No obvious focal deficit. Awake, alert, and oriented x3. PSYCHIATRIC: Appropriate mood and affect; insight and judgment normal. Assessment/Plan Assessment 1. Bilateral pulmonary embolism with saddle embolus: evidence of right heart strain. Unable to receive to lytic therapy due to acute/subacute CVA. During the course of her hospital stay she was initially placed on IV heparin gtt, transitioned to lovneox and then transitioned to apixaban. Bilateral lower extremity ultrasound with extensive VTE in right lower extremity. 2. CVA: acute vs subacute. Followed by neurology. previously on full dose ASA , this is now being held. Awaiting neurology input. 3. Abdominal wall hematoma: two large hematomas measuring 3.5 x 6.3 x 4.8 cm and a pelvic hematoma of 6.3 x 11 x 14 cm. Patient's hemoglobin has dropped by three units. Vitals are stable. She has been seen by surgery service. Fluid collection near rectus muscle possibly due to lovenox injections. Large pelvic fluid collection (? in abdominal cavity) likely due to coughing/straining. Imaging reviewed with Dr. Rivera. Case discussed with Dr. Call. 4. Anticoagulation: Discussion with patient and her . Abdominal hematoma likely due to anticoagulation. Currently holding anticoagulation. Given extensive clot burden in right lower extremity and lungs will place removable IVC filter. If additional clot were to break off and travel to the lungs worry that this would have profound morbidity/mortality. Will continue to trend hemoglobin, creatinine and vitals. If stable tomorrow would recommend restarting anticoagulation with prophylactic doses of lovenox/heparin or low intensity heparin gtt. 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 Patient discussed with Dr. Valenzuela. Marichuy Call MD Apr 14, 2017 17:13
[2017-04-14 21:03] LABS: HEMATOCRIT 23.6 % (35.0-46.0); MEAN CELL VOLUME 95.2 FL (80.0-100.0); MEAN CORPUSCULAR HEMOGLOBIN 32.4 PG (27.0-34.0); MEAN CORPUSCULAR HGB CONC 34.1 % (32.0-36.0); PLATELET COUNT 242 TH/MM3 (150-450); RED BLOOD COUNT 2.48 MIL/MM3 (4.00-5.30); RED CELL DISTRIBUTION WIDTH 13.6 % (11.6-17.2); REVIEW FLAG FINAL; WHITE BLOOD COUNT 10.2 TH/MM3 (4.0-11.0)
[2017-04-14 21:19] LABS: BICARBONATE 25.2 MEQ/L (21.0-32.0); POTASSIUM 4.3 MEQ/L (3.5-5.1)
[2017-04-14] MEDS: PRAVASTATIN SOD 40 MG TAB PO SCH (21:29)
[2017-04-15] VITALS (10 sets, daily range): BP systolic 93–118; BP diastolic 52–64; PULSE 80–103; RESP 16–26; TEMP 97.3–99.1; O2SAT 93–97
[2017-04-15] MEDS: LEVOTHYROXINE SODIUM 125 MCG TAB PO SCH (05:47)
[2017-04-15] MEDS: INSULIN NovoLIN REGULAR SUPPLEMENTAL SCALE SQ SCH ×4 (05:48→17:49)
[2017-04-15] MEDS: ACETAMINOPHEN/HYDROcodone 325 MG/5 MG TAB PO PRN ×4 (05:51→20:45)
[2017-04-15 07:39] LABS: HEMATOCRIT 25.9 % (35.0-46.0); MEAN CELL VOLUME 95.5 FL (80.0-100.0); MEAN CORPUSCULAR HGB CONC 33.5 % (32.0-36.0); PLATELET COUNT 242 TH/MM3 (150-450); RED BLOOD COUNT 2.71 MIL/MM3 (4.00-5.30); RED CELL DISTRIBUTION WIDTH 13.9 % (11.6-17.2); REVIEW FLAG FINAL; WHITE BLOOD COUNT 10.6 TH/MM3 (4.0-11.0)
[2017-04-15 07:53] LABS: BICARBONATE 25.1 MEQ/L (21.0-32.0)
[2017-04-15] MEDS: LISINOPRIL 20 MG TAB PO SCH (09:26)
--- NOTE | 2017-04-15 10:11 | HHI.PR ---
Subjective Subjective Notes hh stable, tolerating diet, pain controlled Objective Vitals/I&O Vital Signs Date Time Temp Pulse Resp B/P (MAP) Pulse Ox O2 Delivery O2 Flow Rate FiO2 04/15/17 08:00 98.4 92 19 112/54 (73) 94 Manual Cuff/Auscultation Labs Laboratory Tests Test 04/14/17 20:36 04/15/17 07:05 White Blood Count 10.2 10.6 Red Blood Count 2.48 2.71 Hemoglobin 8.0 8.7 Hematocrit 23.6 25.9 Mean Corpuscular Volume 95.2 95.5 Mean Corpuscular Hemoglobin 32.4 32.0 Mean Corpuscular Hemoglobin Concent 34.1 33.5 Red Cell Distribution Width 13.6 13.9 Platelet Count 242 242 Mean Platelet Volume 8.7 8.3 Blood Urea Nitrogen 46 41 Creatinine 2.12 1.30 Random Glucose 137 117 Calcium Level 8.2 8.7 Sodium Level 138 139 Potassium Level 4.3 4.0 Chloride Level 103 105 Carbon Dioxide Level 25.2 25.1 Anion Gap 10 9 Estimat Glomerular Filtration Rate 23 40 Abdomen: Other (soft mild ttp with bruising ) A/P Assessment and Plan 71 year old female with history of anticoagulation and PEs; falls with abdominal wall hematomas -No concern at this time for any tissue necrosis or infection -Regular diet -Pain control - continue non op mgnt - will follow Darnell Hurst MD Apr 15, 2017 10:11
--- NOTE | 2017-04-15 12:15 | PD.ONC.PN ---
Subjective Subjective Remarks Afebrile overnight Pt c/o persistent abdominal pain Denies SOB Concerned about going back on heparin gtt Objective Data Date Time Temp Pulse Resp B/P (MAP) Pulse Ox O2 Delivery O2 Flow Rate FiO2 04/15/17 08:00 98.4 92 19 112/54 (73) 94 Manual Cuff/Auscultation 04/15/17 05:30 97.3 80 18 113/61 (78) 95 04/15/17 00:15 98.9 88 19 105/64 (78) 95 04/14/17 20:15 98.3 92 18 98/54 (69) 94 04/14/17 20:00 105 04/14/17 16:36 98.5 96 18 117/53 (74) 95 04/14/17 12:52 98.4 91 18 109/53 (71) 94 04/15/17 04/15/17 04/15/17 07:00 15:00 23:00 Intake Total 600 ml Output Total 800 ml Balance -200 ml Result Diagram: 04/15/1770404/15/17 07 Laboratory Results Laboratory Tests Test 04/14/17 20:36 04/15/17 07:05 White Blood Count 10.2 TH/MM3 10.6 TH/MM3 Red Blood Count 2.48 MIL/MM3 2.71 MIL/MM3 Hemoglobin 8.0 GM/DL 8.7 GM/DL Hematocrit 23.6 % 25.9 % Mean Corpuscular Volume 95.2 FL 95.5 FL Mean Corpuscular Hemoglobin 32.4 PG 32.0 PG Mean Corpuscular Hemoglobin Concent 34.1 % 33.5 % Red Cell Distribution Width 13.6 % 13.9 % Platelet Count 242 TH/MM3 242 TH/MM3 Mean Platelet Volume 8.7 FL 8.3 FL Blood Urea Nitrogen 46 MG/DL 41 MG/DL Creatinine 2.12 MG/DL 1.30 MG/DL Random Glucose 137 MG/DL 117 MG/DL Calcium Level 8.2 MG/DL 8.7 MG/DL Sodium Level 138 MEQ/L 139 MEQ/L Potassium Level 4.3 MEQ/L 4.0 MEQ/L Chloride Level 103 MEQ/L 105 MEQ/L Carbon Dioxide Level 25.2 MEQ/L 25.1 MEQ/L Anion Gap 10 MEQ/L 9 MEQ/L Estimat Glomerular Filtration Rate 23 ML/MIN 40 ML/MIN Administered Medications Medications (Trade) Dose Ordered Sig/[place] Route PRN Reason Start Time Stop Time Status Last Admin Dose Admin Insulin Human Regular (NovoLIN R SUPPLEMENTAL SCALE) 1 Q6HR SQ 04/07/17 18:00 04/09/17 23:23 Magnesium Hydroxide (Milk Of [place]) 30 ml Q12H PRN PO Mild constipation 04/07/17 13:15 04/15/17 11:11 Pravastatin Sodium (Pravachol) 40 mg HS PO 04/08/17 21:00 04/14/17 21:29 Levothyroxine Sodium (Synthroid) 125 mcg DAILY@0600 PO 04/09/17 06:00 04/15/17 05:47 Benzocaine/Menthol (Cepacol Extra Sung (Sugar Free)) 1 lozenge Q4H PRN BUCCAL THROAT DISCOMFORT 04/08/17 19:00 04/14/17 11:40 Lisinopril (Prinivil) 20 mg DAILY PO 04/10/17 13:15 Future Hold 04/15/17 09:26 Apixaban (Eliquis) 10 mg BID PO 04/13/17 08:00 Future Hold 04/13/17 10:50 Acetaminophen/ Hydrocodone Bitart ([place] 5-325 Mg) 1 tab Q4H PRN PO PAIN SCALE 1 TO 10 04/13/17 18:00 04/15/17 11:12 Objective Remarks GENERAL: Older female, resting in bed with at bedside. She appears calm and in no distress. SKIN: Multiple areas of bruising in various state of healing including face and abdominal wall HEAD: Normocephalic. EYES: No scleral icterus. NECK: Supple, trachea midline. CARDIOVASCULAR: Regular rate and rhythm without murmurs. RESPIRATORY: Breath sounds equal bilaterally. No accessory muscle use. GASTROINTESTINAL: Abdomen soft, non-tender, bruising and tenderness across lower abdomen EXTREMITIES: No cyanosis, or edema. MUSCULOSKELETAL: Adequate muscle tone. NEUROLOGICAL: No obvious focal deficit. Awake, alert, and oriented x3. Assessment/Plan Problem List: (1) Pulmonary embolism ICD Codes: I26.99 - Other pulmonary embolism without acute cor pulmonale Status: Acute Plan: -- Bilateral pulmonary embolism with saddle embolus -- Evidence of right heart strain. -- Unable to receive to lytic therapy due to acute/subacute CVA. -- During the course of her hospital stay she was initially placed on IV heparin gtt, transitioned to lovneox and then transitioned to apixaban. This was held after noticeable drop in hgb; found to have abdominal wall hematomas. -- Bilateral lower extremity ultrasound with extensive VTE in right lower extremity. -- IVC filter placed 04/14 (2) Abdominal hematoma ICD Codes: S30.1XXA - Contusion of abdominal wall, initial encounter Plan: -- Two large hematomas measuring 3.5 x 6.3 x 4.8 cm and a pelvic hematoma of 6.3 x 11 x 14 cm. -- Patient's hemoglobin has dropped by 3 gm/dL. -- Surgery following. -- Fluid collection near rectus muscle possibly due to lovenox injections. -- Large pelvic fluid collection (? in abdominal cavity) likely due to coughing/ straining. -- Will repeat CT imaging to reevaluate (3) CVA (cerebral vascular accident) ICD Codes: I63.9 - Cerebral infarction, unspecified Plan: -- Acute vs subacute. -- Previously on full dose ASA, this is now being held. -- Followed by Neurology Assessment 71 y/o female admitted with SOB found to have saddle embolus and then developed abdominal hematomas after starting Lovenox. Plan 1. Repeat Abd/pelvis CT without contrast to reevaluate hematomas. 2. Ideally would like to resume anticoagulation such as heparin SQ TID in the presence of the ICU as she will need close monitoring with frequent H/H. 3. IVC filter placed; pt tolerated well. 4. Eventually will transition pt back to Eliquis once she is tolerating heparin and CBC stable. Attending Statement The exam, history, and the medical decision-making described in the above note were completed with the assistance of the mid-level provider. I reviewed and agree with the findings presented. I attest that I had a [id number] encounter with the patient on the same day, and personally performed and documented my assessment and findings in the medical record saddle PE/not a candidate for TPA has abdominal Hematomas s/p IVC filter placement Hb drop to 8 yesterday --today 8.7 transfer to ICU for close monitoring CT abdomen to assess hematomas will consider Heparin GTT if CT scan shows stable hematomas CBC IN AM D/W RN O/N EVENTS REVIEWED Problem Qualifiers (1) Pulmonary embolism: Qualified Codes: I26.02 - Saddle embolus of pulmonary artery with acute cor pulmonale Elizabet Huynh Apr 15, 2017 12:15 John Luevano MD Apr 15, 2017 14:14
--- NOTE | 2017-04-15 13:18 | HHI.PR ---
Subjective Remarks She had a removable inferior vena cava filter placed due to an Ultrasound of the Right Lower Extremity showing a large thrombosis burden for the right lower limb in the setting of abdominal and pelvic bain with hemorrhage. Decision was made by Hematology and supported by the Neurologist for the holding of the anticoagulation briefly and to return to use of prophylactic doses of the anticoagulation due to her high risk status. It is proposed to have the patient in the ICU setting for very close monitoring due the high risk of a re- bleed possibility. CT Scan will be done to re-assess of her abdomen and pelvis hematoma status. Objective - Vital Signs Date Time Temp Pulse Resp B/P (MAP) Pulse Ox O2 Delivery O2 Flow Rate FiO2 04/15/17 12:00 98.3 103 19 118/55 (76) 97 04/15/17 08:00 98.4 92 19 112/54 (73) 94 Manual Cuff/Auscultation 04/15/17 05:30 97.3 80 18 113/61 (78) 95 04/15/17 00:15 98.9 88 19 105/64 (78) 95 04/14/17 20:15 98.3 92 18 98/54 (69) 94 04/14/17 20:00 105 04/14/17 16:36 98.5 96 18 117/53 (74) 95 I/O 04/14/17 04/14/17 04/14/17 04/15/17 04/15/17 04/15/17 07:00 15:00 23:00 07:00 15:00 23:00 Intake Total 300 ml 240 ml 600 ml Output Total 800 ml Balance 300 ml 240 ml -200 ml Intake Oral 300 ml 240 ml 600 ml Output Urine Total 800 ml # Voids 1 1 2 # Bowel Movements 0 0 Result Diagram: 04/15/1770404/15/17704 Objective Remarks GENERAL: Alert and in mild to moderate distress for abdominal discomfort. SKIN: Warm and dry. HEAD: Normocephalic. Atraumatic. EYES: No scleral icterus. No injection or drainage. NECK: Supple, trachea midline. No JVD or lymphadenopathy. CARDIOVASCULAR: Regular rate and rhythm without murmurs, gallops, or rubs. RESPIRATORY: Breath sounds equal bilaterally. No accessory muscle use. GASTROINTESTINAL: Abdomen is soft with normal bowel sounds. There is some mild tenderness in the lower left abdomen area to exam. The exam show a nondistended abdomen. MUSCULOSKELETAL: No cyanosis or clubbing. There is mild edema present of the lower limbs. BACK: Nontender without obvious deformity. No CVA tenderness. NEURO: She has no lateralizing or focal deficits. A/P Assessment and Plan ASSESSMENT 1. Hematomas of the Abdominal and Pelvic Bain. 2. Acute Blood Loss Anemia. 3. Acute Kidney Injury-improving. 4. Bilateral Pulmonary Emboli with Saddle Embolism. 5. Deep Vein Thrombosis of the Right Lower Extremity. 6. Severe Symptomatic Dyspnea-improved. 7. Hypoxemia-resolved. 8. Cerebral Vascular Accident. 9. Hypertension. 10. Hyperlipidemia. 11. Hypothyroidism. 12. Diabetes Mellitus, Type 2. 13. Osteoarthritis. 14. Lumbar Disc Disease. 15. 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 PLAN 1. Anticoagulation and Antiplatelet therapy is still on hold, but considered to resume at low dose anticoagulation today. 2. Follow up laboratory assessment with close monitoring of hgb/hct and renal function. 3. Neurology and Hematology continue to follow. 4. Activity out of bed as tolerated. 5. DVT, PE and PUD prophylaxis with use of Sequential Compression Device. Reyes Valenzuela MD Apr 15, 2017 13:18
[2017-04-15] MEDS: PRAVASTATIN SOD 40 MG TAB PO SCH (20:16)
[2017-04-16] VITALS (13 sets, daily range): BP systolic 102–128; BP diastolic 55–64; PULSE 82–109; RESP 13–35; TEMP 97.7–98.9; O2SAT 92–96
--- NOTE | 2017-04-16 01:11 | RADRPT ---
EXAM DATE/TIME: 04/16/2017 00:46 [facility] COMPARISON: CT ABDOMEN & PELVIS W CONTRAST, April 13, 2017, 15:58. INDICATIONS : Re-evaluate hematomas. ORAL CONTRAST: No oral contrast ingested. RADIATION DOSE: 9.27 CTDIvol (mGy) MEDICAL HISTORY : Cardiovascular disease. Deep venous thrombosis. Hypertension.Uterine cancer. Thyroid cancer. Diabetes . SURGICAL HISTORY : Cholecystectomy. Hysterectomy.Bilateral hip replacement. ENCOUNTER: Subsequent ACUITY: 3 days PAIN SCALE: 3/10 LOCATION: Bilateral abdomen TECHNIQUE: Volumetric scanning of the abdomen and pelvis was performed. Using automated exposure control and ad justment of the mA and/or kV according to patient size, radiation dose was kept as low as reasonably achievable to obtain optimal diagnostic quality images. DICOM format image data is available electro nically for review and comparison. FINDINGS: There is a 5 mm nodule in the right lower lobe. Malignancy is not excluded. Followup CT scan in 6 mo nths is recommended. There is eventration of the right hemidiaphragm. The liver and spleen are normal in size and no focal defects are identified. Moderate scoliotic deformity is present to the left wit h a rotatory component with the apex at L3. An inferior vena cava filter is in place. The gallbladder is absent. The pancreas demonstrates normal contour without evidence of mass or ductal dilatation. T he adrenal glands and kidneys appear normal bilaterally. No hydronephrosis or mass lesions are identi fied. The left rectus hematoma is unchanged in size. No free fluid is present. There is diverticulosi s without evidence of diverticulitis. CONCLUSION: 1. Stable left rectus sheath hematoma measuring 8.1 x 4.5 CM. No acute hemorrhage is identified. 2. 5 mm nodule right lower lobe. Followup CT scan in 6 months is recommended. Aldo Crawford MD on April 16, 2017 at 1:05 Board Certified Radiologist. This report was verified electronically.
[2017-04-16] MEDS: LEVOTHYROXINE SODIUM 125 MCG TAB PO SCH (05:57)
[2017-04-16] MEDS: ACETAMINOPHEN/HYDROcodone 325 MG/5 MG TAB PO PRN ×4 (05:58→20:45)
[2017-04-16] MEDS: INSULIN NovoLIN REGULAR SUPPLEMENTAL SCALE SQ SCH ×5 (05:59→23:41)
[2017-04-16 06:38] LABS: HEMATOCRIT 23.5 % (35.0-46.0); MEAN CELL VOLUME 95.4 FL (80.0-100.0); MEAN CORPUSCULAR HEMOGLOBIN 32.5 PG (27.0-34.0); MEAN CORPUSCULAR HGB CONC 34.1 % (32.0-36.0); PLATELET COUNT 220 TH/MM3 (150-450); RED BLOOD COUNT 2.46 MIL/MM3 (4.00-5.30); RED CELL DISTRIBUTION WIDTH 13.3 % (11.6-17.2); REVIEW FLAG FINAL; WHITE BLOOD COUNT 8.1 TH/MM3 (4.0-11.0)
[2017-04-16 06:54] LABS: BICARBONATE 26.2 MEQ/L (21.0-32.0)
[2017-04-16 06:57] LABS: INDIRECT BILIRUBIN 0.4 MG/DL (0.0-0.8); TOTAL BILIRUBIN ADULT 0.6 MG/DL (0.2-1.0)
[2017-04-16] MEDS: HEPARIN SODIUM - SQ 10,000 UNITS/ML VIAL SQ SCH ×2 (14:12→21:41)
--- NOTE | 2017-04-16 14:39 | PD.ONC.PN ---
Subjective Subjective Remarks Afebrile No obvious bleeding Patient reports being uncomfortable in ICU Difficult for her to use a bedside commode Objective Data Date Time Temp Pulse Resp B/P (MAP) Pulse Ox O2 Delivery O2 Flow Rate FiO2 04/16/17 12:00 98.9 90 35 110/59 (76) 95 04/16/17 12:00 90 04/16/17 10:00 101 04/16/17 08:00 97.7 99 27 128/60 (82) 96 04/16/17 08:00 99 04/16/17 06:00 89 04/16/17 04:00 82 04/16/17 04:00 98.1 82 13 127/56 (79) 94 04/16/17 02:00 84 04/16/17 00:00 84 04/16/17 00:00 98.7 84 15 102/55 (71) 93 04/15/17 22:00 91 04/15/17 20:00 99 04/15/17 20:00 99.1 99 16 105/57 (73) 97 04/15/17 19:00 99.1 100 26 93/52 (66) 96 04/15/17 18:30 98.9 100 26 93/52 (66) 93 04/15/17 18:30 100 04/15/17 16:00 98.2 101 19 108/57 (74) 95 04/16/17 04/16/17 04/16/17 07:00 15:00 23:00 Intake Total 300 ml Output Total 600 ml Balance -300 ml Result Diagram: 04/16/1727 04/16/17526 Laboratory Results Laboratory Tests Test 04/16/17 05:27 White Blood Count 8.1 TH/MM3 Red Blood Count 2.46 MIL/MM3 Hemoglobin 8.0 GM/DL Hematocrit 23.5 % Mean Corpuscular Volume 95.4 FL Mean Corpuscular Hemoglobin 32.5 PG Mean Corpuscular Hemoglobin Concent 34.1 % Red Cell Distribution Width 13.3 % Platelet Count 220 TH/MM3 Mean Platelet Volume 8.3 FL Blood Urea Nitrogen 31 MG/DL Creatinine 0.81 MG/DL Random Glucose 93 MG/DL Total Protein 6.6 GM/DL Albumin 3.1 GM/DL Calcium Level 8.4 MG/DL Alkaline Phosphatase 103 U/L Aspartate Amino Transf (AST/SGOT) 64 U/L Alanine Aminotransferase (ALT/SGPT) 68 U/L Total Bilirubin 0.6 MG/DL Direct Bilirubin 0.2 MG/DL Sodium Level 139 MEQ/L Potassium Level 4.0 MEQ/L Chloride Level 105 MEQ/L Carbon Dioxide Level 26.2 MEQ/L Anion Gap 8 MEQ/L Estimat Glomerular Filtration Rate 70 ML/MIN Indirect Bilirubin 0.4 MG/DL Administered Medications Medications (Trade) Dose Ordered Sig/[place] Route PRN Reason Start Time Stop Time Status Last Admin Dose Admin Insulin Human Regular (NovoLIN R SUPPLEMENTAL SCALE) 1 Q6HR SQ 04/07/17 18:00 04/09/17 23:23 Magnesium Hydroxide (Milk Of [place]) 30 ml Q12H PRN PO Mild constipation 04/07/17 13:15 04/15/17 11:11 Pravastatin Sodium (Pravachol) 40 mg HS PO 04/08/17 21:00 04/15/17 20:16 Levothyroxine Sodium (Synthroid) 125 mcg DAILY@0600 PO 04/09/17 06:00 04/16/17 05:57 Benzocaine/Menthol (Cepacol Extra Sung (Sugar Free)) 1 lozenge Q4H PRN BUCCAL THROAT DISCOMFORT 04/08/17 19:00 04/14/17 11:40 Lisinopril (Prinivil) 20 mg DAILY PO 04/10/17 13:15 Future Hold 04/15/17 09:26 Apixaban (Eliquis) 10 mg BID PO 04/13/17 08:00 Future Hold 04/13/17 10:50 Acetaminophen/ Hydrocodone Bitart ([place] 5-325 Mg) 1 tab Q4H PRN PO PAIN SCALE 1 TO 10 04/13/17 18:00 04/16/17 09:52 Heparin Sodium (Porcine) (Heparin Inj) 5,000 units Q8HR SQ 04/16/17 14:00 04/16/17 14:12 Objective Remarks GENERAL: Older female, resting in bed with at bedside. She appears calm and in no distress. SKIN: Multiple areas of bruising in various state of healing including face and abdominal wall HEAD: Normocephalic. EYES: No scleral icterus. NECK: Supple, trachea midline. CARDIOVASCULAR: Regular rate and rhythm without murmurs. RESPIRATORY: Breath sounds equal bilaterally. No accessory muscle use. GASTROINTESTINAL: Abdomen soft, non-tender, bruising and tenderness across lower abdomen EXTREMITIES: No cyanosis, or edema. MUSCULOSKELETAL: Adequate muscle tone. NEUROLOGICAL: No obvious focal deficit. Awake, alert, and oriented x3. Assessment/Plan Problem List: (1) Pulmonary embolism ICD Codes: I26.99 - Other pulmonary embolism without acute cor pulmonale Status: Acute Plan: -- Bilateral pulmonary embolism with saddle embolus -- Evidence of right heart strain. -- Unable to receive to lytic therapy due to acute/subacute CVA. -- During the course of her hospital stay she was initially placed on IV heparin gtt, transitioned to lovneox and then transitioned to apixaban. This was held after noticeable drop in hgb; found to have abdominal wall hematomas. -- Bilateral lower extremity ultrasound with extensive VTE in right lower extremity. -- IVC filter placed 04/14 (2) Abdominal hematoma ICD Codes: S30.1XXA - Contusion of abdominal wall, initial encounter Plan: -- Two large hematomas measuring 3.5 x 6.3 x 4.8 cm and a pelvic hematoma of 6.3 x 11 x 14 cm. -- Patient's hemoglobin has dropped by 3 gm/dL. -- Surgery following. -- Fluid collection near rectus muscle possibly due to lovenox injections. -- Large pelvic fluid collection (? in abdominal cavity) likely due to coughing/ straining. -- Repeat CT imaging shows STABLE hematoma (3) CVA (cerebral vascular accident) ICD Codes: I63.9 - Cerebral infarction, unspecified Plan: -- Acute vs subacute. -- Previously on full dose ASA, this is now being held. -- Followed by Neurology Assessment 71 y/o female admitted with SOB found to have saddle embolus and then developed abdominal hematomas after starting Lovenox. Plan 1. Repeat CT scan shows stable hematoma 2. Will initiate subcutaneous heparin 5000 units 3 times a day 3. We'll check daily CBC as well as afternoon H&H to monitor for any bleeding 4. Discussed with patient incidental finding of a 5 mm pulmonary nodule in the right lower lobe. Recommend repeat imaging in 6 months to reevaluate 5. Supportive care Discussed with [employer]ERTER Attending Statement The exam, history, and the medical decision-making described in the above note were completed with the assistance of the mid-level provider. I reviewed and agree with the findings presented. I attest that I had a [id number] encounter with the patient on the same day, and personally performed and documented my assessment and findings in the medical record CT scans show stable hematomas --images reviewed--discussed with patient and her Hb 8.7, PLts 220 start Heparin 5000sq TID--may consider starting Heparin GTT in AM Lung nodule will need o/p f/u d/w tn o/n events reviewed Problem Qualifiers (1) Pulmonary embolism: Qualified Codes: I26.02 - Saddle embolus of pulmonary artery with acute cor pulmonale Elizabet Huynh Apr 16, 2017 14:39 John Luevano MD Apr 16, 2017 16:06
[2017-04-16 17:57] LABS: HEMATOCRIT 25.3 % (35.0-46.0); REVIEW FLAG FINAL
[2017-04-16] MEDS: PRAVASTATIN SOD 40 MG TAB PO SCH (21:41)
[2017-04-17] VITALS (16 sets, daily range): BP systolic 100–132; BP diastolic 49–64; PULSE 71–98; RESP 12–25; TEMP 98.2–98.9; O2SAT 92–98
[2017-04-17] MEDS: LEVOTHYROXINE SODIUM 125 MCG TAB PO SCH (05:11)
[2017-04-17] MEDS: HEPARIN SODIUM - SQ 10,000 UNITS/ML VIAL SQ SCH ×2 (05:11→15:03)
[2017-04-17] MEDS: INSULIN NovoLIN REGULAR SUPPLEMENTAL SCALE SQ SCH ×3 (06:00→18:00)
[2017-04-17 06:02] LABS: AUTOMATED NEUTROPHIL # 4.3 TH/MM3 (1.8-7.7); BASOPHIL % 0.4 % (0.0-2.0); EOSINOPHIL # 0.3 TH/MM3 (0-0.4); EOSINOPHIL % 4.2 % (0.0-4.0); HEMATOCRIT 25.4 % (35.0-46.0); HEMO FLAGS DIFF FINAL; LYMPH % 26.8 % (9.0-44.0); LYMPHOCYTE # 1.9 TH/MM3 (1.0-4.8); MEAN CELL VOLUME 96.4 FL (80.0-100.0); MEAN CORPUSCULAR HGB CONC 34.2 % (32.0-36.0); MONO % 8.9 % (0.0-8.0); NEUT % 59.7 % (16.0-70.0); PLATELET COUNT 256 TH/MM3 (150-450); RED BLOOD COUNT 2.63 MIL/MM3 (4.00-5.30); RED CELL DISTRIBUTION WIDTH 13.3 % (11.6-17.2); WHITE BLOOD COUNT 7.2 TH/MM3 (4.0-11.0)
--- NOTE | 2017-04-17 08:05 | HHI.PR ---
Subjective Remarks She continues with close monitoring of her status in the ICU. There are no further adverse changes reported. She still has some discomfort at the anterior abdominal wall and left lower abdomen area. Objective - Vital Signs Date Time Temp Pulse Resp B/P (MAP) Pulse Ox O2 Delivery O2 Flow Rate FiO2 04/17/17 06:00 74 04/17/17 04:00 71 04/17/17 04:00 98.8 71 12 128/57 (80) 96 04/17/17 02:00 72 04/17/17 00:00 98.2 83 14 100/49 (66) 92 04/17/17 00:00 83 04/16/17 22:00 91 04/16/17 20:23 96 21 04/16/17 20:00 100 04/16/17 20:00 98.8 100 16 115/55 (75) 92 04/16/17 18:00 109 04/16/17 16:00 99 04/16/17 16:00 98.5 99 24 105/64 (78) 95 04/16/17 14:00 91 04/16/17 12:00 98.9 90 35 110/59 (76) 95 04/16/17 12:00 90 04/16/17 10:00 101 I/O 04/16/17 04/16/17 04/16/17 04/17/17 04/17/17 04/17/17 07:00 15:00 23:00 07:00 15:00 23:00 Intake Total 300 ml 720 ml Output Total 600 ml Balance -300 ml 720 ml Intake Oral 300 ml 720 ml Output Urine Total 550 ml Stool Total 50 ml # Voids 2 2 3 # Bowel Movements 1 1 1 Result Diagram: 04/17/17 0507 04/16/17 0527 Objective Remarks GENERAL: Alert and well oriented. SKIN: Warm and dry. HEAD: Normocephalic. Atraumatic. EYES: No scleral icterus. No injection or drainage. NECK: Supple, trachea midline. No JVD or lymphadenopathy. CARDIOVASCULAR: Regular rate and rhythm without murmurs, gallops, or rubs. RESPIRATORY: Breath sounds equal bilaterally. No accessory muscle use. GASTROINTESTINAL: Abdomen is soft. There is some tenderness in the anterior wall and the left lower quadrant areas.Bowel sounds are normal. MUSCULOSKELETAL: No cyanosis, or edema. There is free range of motion to exam. BACK: Nontender without obvious deformity. No CVA tenderness. NEURO: There are no lateralizing focal deficits. A/P Assessment and Plan ASSESSMENT 1. Hematomas of the Abdominal and Pelvic Peterson. 2. Acute Blood Loss Anemia. 3. Acute Kidney Injury-improving. 4. Bilateral Pulmonary Emboli with Saddle Embolism. 5. Deep Vein Thrombosis of the Right Lower Extremity. 6. Severe Symptomatic Dyspnea-improved. 7. Hypoxemia-resolved. 8. Cerebral Vascular Accident. 9. Hypertension. 10. Hyperlipidemia. 11. Hypothyroidism. 12. Diabetes Mellitus, Type 2. 13. Osteoarthritis. 14. Lumbar Disc Disease. 15. 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 PLAN 1. Low dose anticoagulation is started.. 2. Continued close monitoring of hgb/hct and renal function. 3. Hematology continue to follow. 4. Activity out of bed as tolerated. 5. DVT, PE and PUD prophylaxis with use of Sequential Compression Device. Reyes Valenzuela MD Apr 17, 2017 08:05
[2017-04-17] MEDS: ACETAMINOPHEN/HYDROcodone 325 MG/5 MG TAB PO PRN ×2 (15:00→19:48)
[2017-04-17 16:48] LABS: HEMATOCRIT 25.7 % (35.0-46.0); REVIEW FLAG FINAL
[2017-04-17] MEDS ORDERED: HEPARIN-D5W 25,000 U/250 ML 250 ML IV PRN (18:30)
[2017-04-17] MEDS: PRAVASTATIN SOD 40 MG TAB PO SCH (19:48)
[2017-04-17 20:23] LABS: APTT (PATIENT) 30.3 SEC (24.3-30.1); PROTHROMBIN TIME - PATIENT 10.5 SEC (9.8-11.6)
--- NOTE | 2017-04-17 23:44 | PD.ONC.PN ---
Subjective Subjective Remarks Resting comfortably in bed in no distress. Objective Data Date Time Temp Pulse Resp B/P (MAP) Pulse Ox O2 Delivery O2 Flow Rate FiO2 04/17/17 22:00 83 04/17/17 20:00 98.9 93 21 115/58 (77) 98 04/17/17 20:00 93 04/17/17 19:10 96 21 04/17/17 16:00 98 24 132/60 (84) 97 04/17/17 16:00 98 04/17/17 14:00 94 04/17/17 12:00 98.6 98 25 126/64 (84) 98 04/17/17 12:00 90 04/17/17 10:00 95 04/17/17 10:00 95 23 110/53 (72) 98 04/17/17 09:01 93 16 125/59 (81) 96 04/17/17 08:20 97 21 04/17/17 08:01 98.4 88 22 106/56 (73) 92 04/17/17 08:00 86 04/17/17 07:00 75 12 103/55 (71) 94 04/17/17 06:00 74 04/17/17 04:00 71 04/17/17 04:00 98.8 71 12 128/57 (80) 96 04/17/17 02:00 72 04/17/17 00:00 98.2 83 14 100/49 (66) 92 04/17/17 00:00 83 Result Diagram: 04/17/17 1608 04/16/17 0527 Laboratory Results Laboratory Tests Test 04/17/17 05:07 04/17/17 16:08 04/17/17 19:16 White Blood Count 7.2 TH/MM3 Red Blood Count 2.63 MIL/MM3 Hemoglobin 8.7 GM/DL 8.7 GM/DL Hematocrit 25.4 % 25.7 % Mean Corpuscular Volume 96.4 FL Mean Corpuscular Hemoglobin 33.0 PG Mean Corpuscular Hemoglobin Concent 34.2 % Red Cell Distribution Width 13.3 % Platelet Count 256 TH/MM3 Mean Platelet Volume 8.3 FL Neutrophils (%) (Auto) 59.7 % Lymphocytes (%) (Auto) 26.8 % Monocytes (%) (Auto) 8.9 % Eosinophils (%) (Auto) 4.2 % Basophils (%) (Auto) 0.4 % Neutrophils # (Auto) 4.3 TH/MM3 Lymphocytes # (Auto) 1.9 TH/MM3 Monocytes # (Auto) 0.6 TH/MM3 Eosinophils # (Auto) 0.3 TH/MM3 Basophils # (Auto) 0.0 TH/MM3 CBC Comment DIFF FINAL Differential Comment Prothrombin Time 10.5 SEC Prothromb Time International Ratio 1.0 RATIO Activated Partial Thromboplast Time 30.3 SEC Administered Medications Medications (Trade) Dose Ordered Sig/[place] Route PRN Reason Start Time Stop Time Status Last Admin Dose Admin Insulin Human Regular (NovoLIN R SUPPLEMENTAL SCALE) 1 Q6HR SQ 04/07/17 18:00 04/16/17 18:00 Magnesium Hydroxide (Milk Of [place]) 30 ml Q12H PRN PO Mild constipation 04/07/17 13:15 04/15/17 11:11 Pravastatin Sodium (Pravachol) 40 mg HS PO 04/08/17 21:00 04/17/17 19:48 Levothyroxine Sodium (Synthroid) 125 mcg DAILY@0600 PO 04/09/17 06:00 04/17/17 05:11 Benzocaine/Menthol (Cepacol Extra Sung (Sugar Free)) 1 lozenge Q4H PRN BUCCAL THROAT DISCOMFORT 04/08/17 19:00 04/14/17 11:40 Lisinopril (Prinivil) 20 mg DAILY PO 04/10/17 13:15 Future Hold 04/15/17 09:26 Acetaminophen/ Hydrocodone Bitart ([place] 5-325 Mg) 1 tab Q4H PRN PO PAIN SCALE 1 TO 10 04/13/17 18:00 04/17/17 19:48 Heparin Sodium/ Dextrose 250 ml @ 14 mls/hr TITRATE PRN IV Coagulation Management 04/17/17 18:30 04/17/17 20:18 Objective Remarks GENERAL: Well-nourished, well-developed patient. SKIN: Warm and dry. HEAD: Normocephalic. EYES: No scleral icterus. No injection or drainage. NECK: Supple, trachea midline. No JVD or lymphadenopathy. LYMPHATIC: No adenopathy. CARDIOVASCULAR: Regular rate and rhythm without murmurs. RESPIRATORY: Breath sounds equal bilaterally. No accessory muscle use. GASTROINTESTINAL: Abdomen soft, non-tender, nondistended. bruising present on abdomen EXTREMITIES: No cyanosis, or edema. MUSCULOSKELETAL: Adequate muscle tone. NEUROLOGICAL: No obvious focal deficit. Awake, alert, and oriented x3. PSYCHIATRIC: Appropriate mood and affect; insight and judgment normal. Assessment/Plan Problem List: (1) Pulmonary embolism ICD Codes: I26.99 - Other pulmonary embolism without acute cor pulmonale Status: Acute Plan: -- Bilateral pulmonary embolism with saddle embolus -- Evidence of right heart strain. -- Unable to receive to lytic therapy due to acute/subacute CVA. -- During the course of her hospital stay she was initially placed on IV heparin gtt, transitioned to lovneox and then transitioned to apixaban. This was held after noticeable drop in hgb; found to have abdominal wall hematomas. -- Bilateral lower extremity ultrasound with extensive VTE in right lower extremity. -- IVC filter placed 04/14 (2) Abdominal hematoma ICD Codes: S30.1XXA - Contusion of abdominal wall, initial encounter Plan: -- Two large hematomas measuring 3.5 x 6.3 x 4.8 cm and a pelvic hematoma of 6.3 x 11 x 14 cm. -- Patient's hemoglobin has dropped by 3 gm/dL. -- Surgery following. -- Fluid collection near rectus muscle possibly due to lovenox injections. -- Large pelvic fluid collection (? in abdominal cavity) likely due to coughing/ straining. -- Repeat CT imaging shows STABLE hematoma (3) CVA (cerebral vascular accident) ICD Codes: I63.9 - Cerebral infarction, unspecified Plan: -- Acute vs subacute. -- Previously on full dose ASA, this is now being held. -- Followed by Neurology Assessment 1. Bilateral pulmonary embolism with saddle embolus: evidence of right heart strain. Unable to receive to lytic therapy due to acute/subacute CVA. Started on prophylactic heparin this weekend. Will place on heparin gtt and will aim to keep PTT toward lower limit of normal PTT range for heparin. Will follow CBC and clinical picture closely. 2. CVA: acute vs subacute. Followed by neurology and feels that this stroke is likely due to embolic phenomenon. Previously on full dose ASA, this is now being held. 3. Abdominal wall hematoma: stable in size from recent CT scan this weekend. 4. Anticoagulation: s/p placement of IVC filter. Will restart heparin gtt and will keep goal ptt toward lower end of normal. Problem Qualifiers (1) Pulmonary embolism: Qualified Codes: I26.02 - Saddle embolus of pulmonary artery with acute cor pulmonale Marichuy Call MD Apr 17, 2017 23:44
[2017-04-18] VITALS (16 sets, daily range): BP systolic 110–145; BP diastolic 58–71; PULSE 72–106; RESP 12–48; TEMP 98.6–99.3; O2SAT 80–99
[2017-04-18 02:07] LABS: AUTOMATED NEUTROPHIL # 3.9 TH/MM3 (1.8-7.7); BASOPHIL # 0.1 TH/MM3 (0-0.2); BASOPHIL % 0.8 % (0.0-2.0); EOSINOPHIL # 0.3 TH/MM3 (0-0.4); EOSINOPHIL % 4.5 % (0.0-4.0); HEMATOCRIT 22.5 % (35.0-46.0); HEMO FLAGS DIFF FINAL; LYMPH % 25.2 % (9.0-44.0); LYMPHOCYTE # 1.7 TH/MM3 (1.0-4.8); MEAN CELL VOLUME 96.3 FL (80.0-100.0); MEAN CORPUSCULAR HEMOGLOBIN 31.9 PG (27.0-34.0); MEAN CORPUSCULAR HGB CONC 33.1 % (32.0-36.0); MONO % 10.7 % (0.0-8.0); NEUT % 58.8 % (16.0-70.0); PLATELET COUNT 247 TH/MM3 (150-450); RED BLOOD COUNT 2.34 MIL/MM3 (4.00-5.30); RED CELL DISTRIBUTION WIDTH 13.3 % (11.6-17.2); WHITE BLOOD COUNT 6.6 TH/MM3 (4.0-11.0)
[2017-04-18 03:02] LABS: APTT (PATIENT) 109.4 SEC (24.3-30.1)
[2017-04-18] MEDS: INSULIN NovoLIN REGULAR SUPPLEMENTAL SCALE SQ SCH ×4 (05:05→18:00)
[2017-04-18] MEDS: LEVOTHYROXINE SODIUM 125 MCG TAB PO SCH (05:07)
[2017-04-18 05:55] LABS: APTT (PATIENT) 105.5 SEC (24.3-30.1)
[2017-04-18 06:48] LABS: HEMATOCRIT 23.1 % (35.0-46.0); REVIEW FLAG FINAL
--- NOTE | 2017-04-18 07:56 | HHI.PR ---
Subjective Remarks She was started on intravenous anticoagulation and had a drop in the hgb/hct status. It appeared to be somewhat stable at this time and is to be watched closely. She otherwise denies any major adverse changes. Objective - Vital Signs Date Time Temp Pulse Resp B/P (MAP) Pulse Ox O2 Delivery O2 Flow Rate FiO2 04/18/17 06:00 85 04/18/17 04:00 98.6 75 12 130/58 (82) 96 04/18/17 04:00 72 04/18/17 02:00 74 04/18/17 00:00 98.8 75 14 110/58 (75) 95 04/18/17 00:00 75 04/17/17 22:00 83 04/17/17 20:00 98.9 93 21 115/58 (77) 98 04/17/17 20:00 93 04/17/17 19:10 96 21 04/17/17 16:00 98 24 132/60 (84) 97 04/17/17 16:00 98 04/17/17 14:00 94 04/17/17 12:00 98.6 98 25 126/64 (84) 98 04/17/17 12:00 90 04/17/17 10:00 95 04/17/17 10:00 95 23 110/53 (72) 98 04/17/17 09:01 93 16 125/59 (81) 96 04/17/17 08:20 97 21 04/17/17 08:01 98.4 88 22 106/56 (73) 92 04/17/17 08:00 86 I/O 04/17/17 04/17/17 04/17/17 04/18/17 04/18/17 04/18/17 07:00 15:00 23:00 07:00 15:00 23:00 Intake Total 720 ml 254 ml Balance 720 ml 254 ml Intake Oral 720 ml 150 ml IV Total 104 ml # Voids 3 3 2 # Bowel Movements 1 0 0 Result Diagram: 04/18/17 0546 04/16/17 0527 Objective Remarks GENERAL: She is alert and without any new adverse changes. SKIN: Warm and dry. HEAD: Normocephalic. Atraumatic. EYES: No scleral icterus. No injection or drainage. NECK: Supple, trachea midline. No JVD or lymphadenopathy. CARDIOVASCULAR: Regular rate and rhythm without murmurs, gallops, or rubs. RESPIRATORY: Breath sounds equal bilaterally. No accessory muscle use. GASTROINTESTINAL: Abdomen soft, non-tender, nondistended. MUSCULOSKELETAL: No cyanosis, or edema. Pulses are at 3+/4+. BACK: Nontender without obvious deformity. No CVA tenderness. NEURO: No focal deficits. A/P Assessment and Plan ASSESSMENT 1. Hematomas of the Abdominal and Pelvic [place]-resolving. 2. Acute Blood Loss Anemia-appears stable. 3. Acute Kidney Injury-improved. 4. Bilateral Pulmonary Emboli with Saddle Embolism. 5. Deep Vein Thrombosis of the Right Lower Extremity. 6. Severe Symptomatic Dyspnea-improved. 7. Hypoxemia-resolved. 8. Cerebral Vascular Accident. 9. Hypertension. 10. Hyperlipidemia. 11. Hypothyroidism. 12. Diabetes Mellitus, Type 2. 13. Osteoarthritis. 14. Lumbar Disc Disease. 15. 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 PLAN 1. Anticoagulation and Antiplatelet therapy is still on hold, but considered to resume at low dose anticoagulation today. 2. Follow up laboratory assessment with close monitoring of hgb/hct and renal function. 3. Neurology and Hematology continue to follow. 4. Activity out of bed as tolerated. 5. DVT, PE and PUD prophylaxis with use of Sequential Compression Device. Reyes Valenzuela MD Apr 18, 2017 07:56
--- NOTE | 2017-04-18 08:34 | PD.ONC.PN ---
Subjective Subjective Remarks Ms. Montiel is resting comfortably in bed. Her abdominal pain is improved. Objective Data Date Time Temp Pulse Resp B/P (MAP) Pulse Ox O2 Delivery O2 Flow Rate FiO2 04/18/17 06:00 85 04/18/17 04:00 98.6 75 12 130/58 (82) 96 04/18/17 04:00 72 04/18/17 02:00 74 04/18/17 00:00 98.8 75 14 110/58 (75) 95 04/18/17 00:00 75 04/17/17 22:00 83 04/17/17 20:00 98.9 93 21 115/58 (77) 98 04/17/17 20:00 93 04/17/17 19:10 96 21 04/17/17 16:00 98 24 132/60 (84) 97 04/17/17 16:00 98 04/17/17 14:00 94 04/17/17 12:00 98.6 98 25 126/64 (84) 98 04/17/17 12:00 90 04/17/17 10:00 95 04/17/17 10:00 95 23 110/53 (72) 98 04/17/17 09:01 93 16 125/59 (81) 96 04/18/17 04/18/17 04/18/17 07:00 15:00 23:00 Intake Total 254 ml Balance 254 ml Result Diagram: 04/18/17 0546 04/16/17 0527 Laboratory Results Laboratory Tests Test 04/17/17 16:08 04/17/17 19:16 04/18/17 01:52 04/18/17 05:07 Hemoglobin 8.7 GM/DL 7.4 GM/DL Hematocrit 25.7 % 22.5 % Prothrombin Time 10.5 SEC Prothromb Time International Ratio 1.0 RATIO Activated Partial Thromboplast Time 30.3 SEC 109.4 SEC 105.5 SEC White Blood Count 6.6 TH/MM3 Red Blood Count 2.34 MIL/MM3 Mean Corpuscular Volume 96.3 FL Mean Corpuscular Hemoglobin 31.9 PG Mean Corpuscular Hemoglobin Concent 33.1 % Red Cell Distribution Width 13.3 % Platelet Count 247 TH/MM3 Mean Platelet Volume 7.5 FL Neutrophils (%) (Auto) 58.8 % Lymphocytes (%) (Auto) 25.2 % Monocytes (%) (Auto) 10.7 % Eosinophils (%) (Auto) 4.5 % Basophils (%) (Auto) 0.8 % Neutrophils # (Auto) 3.9 TH/MM3 Lymphocytes # (Auto) 1.7 TH/MM3 Monocytes # (Auto) 0.7 TH/MM3 Eosinophils # (Auto) 0.3 TH/MM3 Basophils # (Auto) 0.1 TH/MM3 CBC Comment DIFF FINAL Differential Comment Test 04/18/17 05:46 Hemoglobin 7.8 GM/DL Hematocrit 23.1 % Administered Medications Medications (Trade) Dose Ordered Sig/[place] Route PRN Reason Start Time Stop Time Status Last Admin Dose Admin Insulin Human Regular (NovoLIN R SUPPLEMENTAL SCALE) 1 Q6HR SQ 04/07/17 18:00 04/16/17 18:00 Magnesium Hydroxide (Milk Of [place]) 30 ml Q12H PRN PO Mild constipation 04/07/17 13:15 04/15/17 11:11 Pravastatin Sodium (Pravachol) 40 mg HS PO 04/08/17 21:00 04/17/17 19:48 Levothyroxine Sodium (Synthroid) 125 mcg DAILY@0600 PO 04/09/17 06:00 04/18/17 05:07 Benzocaine/Menthol (Cepacol Extra Sung (Sugar Free)) 1 lozenge Q4H PRN BUCCAL THROAT DISCOMFORT 04/08/17 19:00 04/14/17 11:40 Lisinopril (Prinivil) 20 mg DAILY PO 04/10/17 13:15 Future Hold 04/15/17 09:26 Acetaminophen/ Hydrocodone Bitart ([place] 5-325 Mg) 1 tab Q4H PRN PO PAIN SCALE 1 TO 10 04/13/17 18:00 04/17/17 19:48 Heparin Sodium/ Dextrose 250 ml @ 14 mls/hr TITRATE PRN IV Coagulation Management 04/17/17 18:30 04/17/17 20:18 Objective Remarks GENERAL: Well-nourished, well-developed patient. SKIN: Warm and dry. HEAD: Normocephalic. EYES: No scleral icterus. No injection or drainage. CARDIOVASCULAR: Regular rate and rhythm without murmurs. RESPIRATORY: Breath sounds equal bilaterally. No accessory muscle use. GASTROINTESTINAL: Abdomen soft, non-tender, nondistended. bruising present on abdomen. EXTREMITIES: No cyanosis, or edema. MUSCULOSKELETAL: Adequate muscle tone. NEUROLOGICAL: No obvious focal deficit. Awake, alert, and oriented x3. PSYCHIATRIC: Appropriate mood and affect; insight and judgment normal. Assessment/Plan Problem List: (1) Pulmonary embolism ICD Codes: I26.99 - Other pulmonary embolism without acute cor pulmonale Status: Acute Plan: -- Bilateral pulmonary embolism with saddle embolus -- Evidence of right heart strain. -- Unable to receive to lytic therapy due to acute/subacute CVA. -- During the course of her hospital stay she was initially placed on IV heparin gtt, transitioned to lovneox and then transitioned to apixaban. This was held after noticeable drop in hgb; found to have abdominal wall hematomas. -- Bilateral lower extremity ultrasound with extensive VTE in right lower extremity. -- IVC filter placed 04/14 (2) Abdominal hematoma ICD Codes: S30.1XXA - Contusion of abdominal wall, initial encounter Plan: -- Two large hematomas measuring 3.5 x 6.3 x 4.8 cm and a pelvic hematoma of 6.3 x 11 x 14 cm. -- Patient's hemoglobin has dropped by 3 gm/dL. -- Surgery following. -- Fluid collection near rectus muscle possibly due to lovenox injections. -- Large pelvic fluid collection (? in abdominal cavity) likely due to coughing/ straining. -- Repeat CT imaging shows STABLE hematoma (3) CVA (cerebral vascular accident) ICD Codes: I63.9 - Cerebral infarction, unspecified Plan: -- Acute vs subacute. -- Previously on full dose ASA, this is now being held. -- Followed by Neurology Assessment 1. Bilateral pulmonary embolism with saddle embolus: evidence of right heart strain. Unable to receive to lytic therapy due to acute/subacute CVA. Started on prophylactic heparin this weekend. Heparin gtt without bolus started on Monday. Her hemoglobin subsequently feel by one point PTT elevated. Will hold heparin gtt. Will order repeat abdominal CT scan to evaluate hematomas. 2. CVA: acute vs subacute. Followed by neurology and feels that this stroke is likely due to embolic phenomenon. Previously on full dose ASA, this is now being held. 3. Abdominal wall hematoma: stable in size from recent CT scan this weekend. Due to falling hemoglobin will hold heparin gtt and will obtain repeat CT scan of abdomen to evaluate hematomas. 4. Anticoagulation: s/p placement of IVC filter. Holding heparin gtt. Problem Qualifiers (1) Pulmonary embolism: Qualified Codes: I26.02 - Saddle embolus of pulmonary artery with acute cor pulmonale Marichuy Call MD Apr 18, 2017 08:34
[2017-04-18 10:48] LABS: HEMATOCRIT 24.7 % (35.0-46.0); REVIEW FLAG FINAL
[2017-04-18 11:01] LABS: APTT (PATIENT) 45.7 SEC (24.3-30.1)
[2017-04-18 11:16] LABS: BICARBONATE 27.8 MEQ/L (21.0-32.0); POTASSIUM 3.6 MEQ/L (3.5-5.1)
[2017-04-18 11:33] LABS: INDIRECT BILIRUBIN 0.4 MG/DL (0.0-0.8); TOTAL BILIRUBIN ADULT 0.5 MG/DL (0.2-1.0)
[2017-04-18 16:47] LABS: HEMATOCRIT 23.2 % (35.0-46.0); REVIEW FLAG FINAL
[2017-04-18] MEDS: ACETAMINOPHEN/HYDROcodone 325 MG/5 MG TAB PO PRN (19:42)
[2017-04-18] MEDS: PRAVASTATIN SOD 40 MG TAB PO SCH (19:42)
[2017-04-19] VITALS (23 sets, daily range): BP systolic 111–148; BP diastolic 54–80; PULSE 72–101; RESP 15–38; TEMP 98.1–99.7; O2SAT 91–99
[2017-04-19] MEDS: INSULIN NovoLIN REGULAR SUPPLEMENTAL SCALE SQ SCH ×5 (06:00→23:44)
[2017-04-19] MEDS: LEVOTHYROXINE SODIUM 125 MCG TAB PO SCH (06:39)
[2017-04-19 15:11] LABS: AUTOMATED NEUTROPHIL # 5.5 TH/MM3 (1.8-7.7); BASOPHIL % 0.5 % (0.0-2.0); EOSINOPHIL # 0.2 TH/MM3 (0-0.4); EOSINOPHIL % 2.8 % (0.0-4.0); HEMATOCRIT 24.1 % (35.0-46.0); HEMO FLAGS DIFF FINAL; LYMPH % 15.3 % (9.0-44.0); LYMPHOCYTE # 1.2 TH/MM3 (1.0-4.8); MEAN CELL VOLUME 96.7 FL (80.0-100.0); MEAN CORPUSCULAR HEMOGLOBIN 32.8 PG (27.0-34.0); MONO % 8.8 % (0.0-8.0); NEUT % 72.6 % (16.0-70.0); PLATELET COUNT 236 TH/MM3 (150-450); RED BLOOD COUNT 2.49 MIL/MM3 (4.00-5.30); RED CELL DISTRIBUTION WIDTH 13.4 % (11.6-17.2); WHITE BLOOD COUNT 7.6 TH/MM3 (4.0-11.0)
[2017-04-19 15:24] LABS: APTT (PATIENT) 28.3 SEC (24.3-30.1); PROTHROMBIN TIME - PATIENT 10.9 SEC (9.8-11.6)
[2017-04-19 15:27] LABS: ALT (GPT) 56 U/L (10-53); ANION GAP 9 MEQ/L (5-15); AST (GOT) 27 U/L (15-37); BLOOD UREA NITROGEN 18 MG/DL (7-18); CHLORIDE 109 MEQ/L (98-107); GLOMERULAR FILTRATION RATE 86 ML/MIN (>89); POTASSIUM 3.5 MEQ/L (3.5-5.1); SODIUM (NA) 142 MEQ/L (136-145)
[2017-04-19] MEDS ORDERED: IOHEXOL 350 MG/ML 10 ML VIAL (for RAD DIAG) IVCONTRAST ONE (15:28)
[2017-04-19 15:29] LABS: ALKALINE PHOSPHATASE 140 U/L (45-117); TOTAL BILIRUBIN ADULT 0.5 MG/DL (0.2-1.0)
--- NOTE | 2017-04-19 16:02 | RADRPT ---
EXAM DATE/TIME: 04/19/2017 15:04 [place] COMPARISON: CT ABDOMEN & PELVIS W CONTRAST, April 13, 2017, 15:58. INDICATIONS : Follow up hematoma IV CONTRAST: 86 cc Omnipaque 350 (iohexol) IV ORAL CONTRAST: No oral contrast ingested. RADIATION DOSE: 9.10 CTDIvol (mGy) MEDICAL HISTORY : Hypertension. Diabetes,thyroid uterine cancer SURGICAL HISTORY : Cholecystectomy. Hysterectomy.hips ENCOUNTER: Subsequent ACUITY: 1 week PAIN SCALE: 4/10 LOCATION: Abdomen TECHNIQUE: Volumetric scanning of the abdomen and pelvis was performed. Using automated exposure control and ad justment of the mA and/or kV according to patient size, radiation dose was kept as low as reasonably achievable to obtain optimal diagnostic quality images. DICOM format image data is available electro nically for review and comparison. FINDINGS: Lung base is are clear. Liver, spleen, pancreas, adrenals and kidneys are unremarkable Vena cava filter is in good position There is no ascites Small rectus hematoma into abdominal wall left of midline now measures 2.5 cm, substantially decrease d in size. The larger rectus hematoma just above the iliac crest now measures 4.9 cm. This has decr eased in size by 1.5 cm as well. There are no new hematomas identified. Total arthroplasties are evident. CONCLUSION: Interval improvement. Rectus hematomas are becoming smaller Vena cava filter good position.. Dann Rivera MD FACR on April 19, 2017 at 15:58 Board Certified Radiologist. This report was verified electronically.
[2017-04-19] MEDS: ACETAMINOPHEN/HYDROcodone 325 MG/5 MG TAB PO PRN (18:08)
[2017-04-19] MEDS: PRAVASTATIN SOD 40 MG TAB PO SCH (21:04)
--- NOTE | 2017-04-19 21:29 | HHI.PR ---
Subjective Remarks She is doing much better and tolerating the current medication regimen fine. She is having daily bowel movements. She had CT Scan of the Abdomen which revealed less presence of the hematomas of the abdominal and pelvic bain. Objective - Vital Signs Date Time Temp Pulse Resp B/P (MAP) Pulse Ox O2 Delivery O2 Flow Rate FiO2 04/19/17 18:01 92 33 141/80 (100) 97 04/19/17 18:00 90 30 97 04/19/17 18:00 90 04/19/17 17:01 97 29 144/66 (92) 95 04/19/17 17:00 99 28 95 04/19/17 16:00 98.5 93 22 148/67 (94) 97 04/19/17 16:00 93 04/19/17 15:40 95 27 144/63 (90) 91 04/19/17 14:00 97 22 144/65 (91) 96 04/19/17 14:00 97 04/19/17 13:01 101 37 125/59 (81) 99 04/19/17 13:00 101 30 98 04/19/17 12:00 98.1 87 22 125/58 (80) 93 04/19/17 12:00 96 04/19/17 11:00 96 27 111/72 (85) 99 04/19/17 10:00 101 23 114/56 (75) 97 04/19/17 10:00 101 04/19/17 09:00 91 30 125/68 (87) 98 04/19/17 08:00 84 04/19/17 08:00 98.2 84 16 132/62 (85) 97 04/19/17 07:01 85 16 134/62 (86) 97 04/19/17 07:00 89 38 99 04/19/17 07:00 98 04/19/17 06:00 83 04/19/17 04:00 73 04/19/17 04:00 98.3 73 15 112/54 (73) 98 04/19/17 02:00 72 04/19/17 00:00 79 04/19/17 00:00 98.6 79 17 146/68 (94) 99 04/18/17 22:00 89 I/O 04/18/17 04/18/17 04/18/17 04/19/17 04/19/17 04/19/17 07:00 15:00 23:00 07:00 15:00 23:00 Intake Total 254 ml 120 ml 480 ml 600 ml 480 ml Balance 254 ml 120 ml 480 ml 600 ml 480 ml Intake Oral 150 ml 120 ml 480 ml 600 ml 480 ml IV Total 104 ml # Voids 2 2 2 2 3 # Bowel Movements 0 1 1 0 Result Diagram: 04/19/17 1421 04/19/17 1421 Objective Remarks GENERAL: No acute process to exam. SKIN: Warm and dry. HEAD: Normocephalic. EYES: No scleral icterus. No injection or drainage. NECK: Supple, trachea midline. No JVD or lymphadenopathy. CARDIOVASCULAR: Regular rate and rhythm without murmurs, gallops, or rubs. RESPIRATORY: Breath sounds equal bilaterally. No accessory muscle use. GASTROINTESTINAL: Abdomen soft, non-tender, nondistended. MUSCULOSKELETAL: No cyanosis, or edema. BACK: Nontender without obvious deformity. No CVA tenderness. A/P Assessment and Plan ASSESSMENT 1. Hematomas of the Abdominal and Pelvic Bain-resolving. 2. Acute Blood Loss Anemia. 3. Acute Kidney Injury-improved. 4. Bilateral Pulmonary Emboli with Saddle Embolism. 5. Deep Vein Thrombosis of the Right Lower Extremity. 6. Severe Symptomatic Dyspnea-improved. 7. Hypoxemia-resolved. 8. Cerebral Vascular Accident. 9. Hypertension. 10. Hyperlipidemia. 11. Hypothyroidism. 12. Diabetes Mellitus, Type 2. 13. Osteoarthritis. 14. Lumbar Disc Disease. 15. 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 PLAN 1. Anticoagulation therapy continues. 2. Follow up laboratory assessment with close monitoring of hgb/hct and renal function. 3. Hematology continues to follow. 4. Activity out of bed as tolerated. 5. DVT, PE and PUD prophylaxis with use of Sequential Compression Device. Reyes Valenzuela MD Apr 19, 2017 21:29
--- NOTE | 2017-04-19 23:53 | PD.ONC.PN ---
Subjective Subjective Remarks Resting comfortably in bed in no distress. Labs and CT abdomen pending; Objective Data Date Time Temp Pulse Resp B/P (MAP) Pulse Ox O2 Delivery O2 Flow Rate FiO2 04/19/17 23:46 94 04/19/17 22:00 87 04/19/17 20:00 99.7 96 17 133/69 (90) 96 04/19/17 20:00 96 04/19/17 18:01 92 33 141/80 (100) 97 04/19/17 18:00 90 30 97 04/19/17 18:00 90 04/19/17 17:01 97 29 144/66 (92) 95 04/19/17 17:00 99 28 95 04/19/17 16:00 98.5 93 22 148/67 (94) 97 04/19/17 16:00 93 04/19/17 15:40 95 27 144/63 (90) 91 04/19/17 14:00 97 22 144/65 (91) 96 04/19/17 14:00 97 04/19/17 13:01 101 37 125/59 (81) 99 04/19/17 13:00 101 30 98 04/19/17 12:00 98.1 87 22 125/58 (80) 93 04/19/17 12:00 96 04/19/17 11:00 96 27 111/72 (85) 99 04/19/17 10:00 101 23 114/56 (75) 97 04/19/17 10:00 101 04/19/17 09:00 91 30 125/68 (87) 98 04/19/17 08:00 84 04/19/17 08:00 98.2 84 16 132/62 (85) 97 04/19/17 07:01 85 16 134/62 (86) 97 04/19/17 07:00 89 38 99 04/19/17 07:00 98 04/19/17 06:00 83 04/19/17 04:00 73 04/19/17 04:00 98.3 73 15 112/54 (73) 98 04/19/17 02:00 72 04/19/17 00:00 79 04/19/17 00:00 98.6 79 17 146/68 (94) 99 Result Diagram: 04/19/17 1421 04/19/17 1421 Laboratory Results Laboratory Tests Test 04/19/17 14:21 White Blood Count 7.6 TH/MM3 Red Blood Count 2.49 MIL/MM3 Hemoglobin 8.2 GM/DL Hematocrit 24.1 % Mean Corpuscular Volume 96.7 FL Mean Corpuscular Hemoglobin 32.8 PG Mean Corpuscular Hemoglobin Concent 34.0 % Red Cell Distribution Width 13.4 % Platelet Count 236 TH/MM3 Mean Platelet Volume 7.9 FL Neutrophils (%) (Auto) 72.6 % Lymphocytes (%) (Auto) 15.3 % Monocytes (%) (Auto) 8.8 % Eosinophils (%) (Auto) 2.8 % Basophils (%) (Auto) 0.5 % Neutrophils # (Auto) 5.5 TH/MM3 Lymphocytes # (Auto) 1.2 TH/MM3 Monocytes # (Auto) 0.7 TH/MM3 Eosinophils # (Auto) 0.2 TH/MM3 Basophils # (Auto) 0.0 TH/MM3 CBC Comment DIFF FINAL Differential Comment Prothrombin Time 10.9 SEC Prothromb Time International Ratio 1.0 RATIO Activated Partial Thromboplast Time 28.3 SEC Blood Urea Nitrogen 18 MG/DL Creatinine 0.68 MG/DL Random Glucose 145 MG/DL Total Protein 6.7 GM/DL Albumin 3.1 GM/DL Calcium Level 8.6 MG/DL Alkaline Phosphatase 140 U/L Aspartate Amino Transf (AST/SGOT) 27 U/L Alanine Aminotransferase (ALT/SGPT) 56 U/L Total Bilirubin 0.5 MG/DL Direct Bilirubin 0.1 MG/DL Sodium Level 142 MEQ/L Potassium Level 3.5 MEQ/L Chloride Level 109 MEQ/L Carbon Dioxide Level 24.0 MEQ/L Anion Gap 9 MEQ/L Estimat Glomerular Filtration Rate 86 ML/MIN Administered Medications Medications (Trade) Dose Ordered Sig/[place] Route PRN Reason Start Time Stop Time Status Last Admin Dose Admin Insulin Human Regular (NovoLIN R SUPPLEMENTAL SCALE) 1 Q6HR SQ 04/07/17 18:00 04/16/17 18:00 Magnesium Hydroxide (Milk Of Magnesia Liq) 30 ml Q12H PRN PO Mild constipation 04/07/17 13:15 04/15/17 11:11 Pravastatin Sodium (Pravachol) 40 mg HS PO 04/08/17 21:00 04/19/17 21:04 Levothyroxine Sodium (Synthroid) 125 mcg DAILY@0600 PO 04/09/17 06:00 04/19/17 06:39 Benzocaine/Menthol (Cepacol Extra Sung (Sugar Free)) 1 lozenge Q4H PRN BUCCAL THROAT DISCOMFORT 04/08/17 19:00 04/14/17 11:40 Acetaminophen/ Hydrocodone Bitart ([place] 5-325 Mg) 1 tab Q4H PRN PO PAIN SCALE 1 TO 10 04/13/17 18:00 04/19/17 18:08 Heparin Sodium/ Dextrose 250 ml @ 14 mls/hr TITRATE PRN IV Coagulation Management 04/17/17 18:30 04/17/17 20:18 Objective Remarks GENERAL: Well-nourished, well-developed patient. SKIN: Warm and dry. HEAD: Normocephalic. EYES: No scleral icterus. No injection or drainage. CARDIOVASCULAR: Regular rate and rhythm without murmurs. RESPIRATORY: Breath sounds equal bilaterally. No accessory muscle use. GASTROINTESTINAL: Abdomen soft, non-tender, nondistended. EXTREMITIES: No cyanosis, or edema. MUSCULOSKELETAL: Adequate muscle tone. NEUROLOGICAL: No obvious focal deficit. Awake, alert, and oriented x3. PSYCHIATRIC: Appropriate mood and affect; insight and judgment normal. Assessment/Plan Problem List: (1) Pulmonary embolism ICD Codes: I26.99 - Other pulmonary embolism without acute cor pulmonale Status: Acute Plan: -- Bilateral pulmonary embolism with saddle embolus -- Evidence of right heart strain. -- Unable to receive to lytic therapy due to acute/subacute CVA. -- During the course of her hospital stay she was initially placed on IV heparin gtt, transitioned to lovneox and then transitioned to apixaban. This was held after noticeable drop in hgb; found to have abdominal wall hematomas. -- Bilateral lower extremity ultrasound with extensive VTE in right lower extremity. -- IVC filter placed 04/14 (2) Abdominal hematoma ICD Codes: S30.1XXA - Contusion of abdominal wall, initial encounter Plan: -- Two large hematomas measuring 3.5 x 6.3 x 4.8 cm and a pelvic hematoma of 6.3 x 11 x 14 cm. -- Patient's hemoglobin has dropped by 3 gm/dL. -- Surgery following. -- Fluid collection near rectus muscle possibly due to lovenox injections. -- Large pelvic fluid collection (? in abdominal cavity) likely due to coughing/ straining. -- Repeat CT imaging shows STABLE hematoma (3) CVA (cerebral vascular accident) ICD Codes: I63.9 - Cerebral infarction, unspecified Plan: -- Acute vs subacute. -- Previously on full dose ASA, this is now being held. -- Followed by Neurology Assessment 1. Bilateral pulmonary embolism with saddle embolus: evidence of right heart strain. Unable to receive to lytic therapy due to acute/subacute CVA. Started on prophylactic heparin this weekend. Heparin gtt without bolus started on Monday. Her hemoglobin subsequently feel by one point. 2. CVA: acute vs subacute. Followed by neurology and feels that this stroke is likely due to embolic phenomenon. Previously on full dose ASA, this is now being held. 3. Abdominal wall hematoma: stable in size from recent CT scan this weekend. Due to falling hemoglobin will hold heparin gtt and will obtain repeat CT scan of abdomen to evaluate hematomas. This is pending 4. Anticoagulation: s/p placement of IVC filter. Holding heparin gtt due to fall in hemoglobin when this was restarted. Problem Qualifiers (1) Pulmonary embolism: Qualified Codes: I26.02 - Saddle embolus of pulmonary artery with acute cor pulmonale Marichuy Call MD Apr 19, 2017 23:53
[2017-04-20] VITALS (23 sets, daily range): BP systolic 98–164; BP diastolic 52–86; PULSE 71–100; RESP 16–38; TEMP 98.2–98.8; O2SAT 92–99
[2017-04-20] MEDS: INSULIN NovoLIN REGULAR SUPPLEMENTAL SCALE SQ SCH ×4 (05:18→23:22)
[2017-04-20] MEDS: LEVOTHYROXINE SODIUM 125 MCG TAB PO SCH (05:18)
[2017-04-20] MEDS ORDERED: LISINOPRIL 10 MG TAB PO SCH (09:00)
[2017-04-20 12:10] LABS: AUTOMATED NEUTROPHIL # 5.3 TH/MM3 (1.8-7.7); BASOPHIL % 0.6 % (0.0-2.0); EOSINOPHIL # 0.2 TH/MM3 (0-0.4); HEMO FLAGS DIFF FINAL; LYMPH % 14.7 % (9.0-44.0); LYMPHOCYTE # 1.1 TH/MM3 (1.0-4.8); MEAN CELL VOLUME 95.3 FL (80.0-100.0); MEAN CORPUSCULAR HEMOGLOBIN 32.4 PG (27.0-34.0); MEAN CORPUSCULAR HGB CONC 34.1 % (32.0-36.0); MONO % 9.4 % (0.0-8.0); NEUT % 72.3 % (16.0-70.0); PLATELET COUNT 242 TH/MM3 (150-450); RED BLOOD COUNT 2.51 MIL/MM3 (4.00-5.30); RED CELL DISTRIBUTION WIDTH 13.6 % (11.6-17.2); WHITE BLOOD COUNT 7.3 TH/MM3 (4.0-11.0)
[2017-04-20 12:47] LABS: BICARBONATE 25.4 MEQ/L (21.0-32.0); POTASSIUM 3.3 MEQ/L (3.5-5.1)
[2017-04-20] MEDS: ACETAMINOPHEN/HYDROcodone 325 MG/5 MG TAB PO PRN ×2 (16:18→20:02)
--- NOTE | 2017-04-20 19:30 | PD.ONC.PN ---
Subjective Subjective Remarks Resting comfortably in bed in no distress. Son is at bedside. Objective Data Date Time Temp Pulse Resp B/P (MAP) Pulse Ox O2 Delivery O2 Flow Rate FiO2 04/20/17 18:00 100 04/20/17 17:00 90 20 129/58 (81) 95 04/20/17 16:00 98.4 86 24 135/62 (86) 98 04/20/17 16:00 86 04/20/17 15:15 88 26 164/77 (106) 97 04/20/17 14:01 91 31 128/59 (82) 96 04/20/17 14:00 91 19 96 04/20/17 14:00 91 04/20/17 13:00 89 21 125/58 (80) 97 04/20/17 12:00 98.4 86 18 135/60 (85) 97 04/20/17 12:00 86 04/20/17 11:00 93 25 107/54 (71) 97 04/20/17 10:00 94 04/20/17 10:00 94 22 110/56 (74) 96 04/20/17 09:01 95 36 112/86 (95) 98 04/20/17 09:00 92 33 98 04/20/17 08:01 98.8 90 38 125/60 (81) 98 04/20/17 08:00 86 04/20/17 08:00 86 19 93 04/20/17 07:00 81 17 116/56 (76) 96 04/20/17 06:00 73 04/20/17 04:05 95 04/20/17 04:00 76 04/20/17 04:00 98.3 71 16 124/53 (76) 99 04/20/17 02:00 75 04/20/17 00:00 79 04/20/17 00:00 98.2 79 16 98/52 (67) 94 04/19/17 23:46 94 04/19/17 22:00 87 04/19/17 20:00 99.7 96 17 133/69 (90) 96 04/19/17 20:00 96 04/20/17 04/20/17 04/20/17 07:00 15:00 23:00 Intake Total 480 ml 480 ml Balance 480 ml 480 ml Result Diagram: 04/20/17 1145 04/20/17 1145 Laboratory Results Laboratory Tests Test 04/20/17 11:45 White Blood Count 7.3 TH/MM3 Red Blood Count 2.51 MIL/MM3 Hemoglobin 8.2 GM/DL Hematocrit 24.0 % Mean Corpuscular Volume 95.3 FL Mean Corpuscular Hemoglobin 32.4 PG Mean Corpuscular Hemoglobin Concent 34.1 % Red Cell Distribution Width 13.6 % Platelet Count 242 TH/MM3 Mean Platelet Volume 7.3 FL Neutrophils (%) (Auto) 72.3 % Lymphocytes (%) (Auto) 14.7 % Monocytes (%) (Auto) 9.4 % Eosinophils (%) (Auto) 3.0 % Basophils (%) (Auto) 0.6 % Neutrophils # (Auto) 5.3 TH/MM3 Lymphocytes # (Auto) 1.1 TH/MM3 Monocytes # (Auto) 0.7 TH/MM3 Eosinophils # (Auto) 0.2 TH/MM3 Basophils # (Auto) 0.0 TH/MM3 CBC Comment DIFF FINAL Differential Comment Blood Urea Nitrogen 16 MG/DL Creatinine 0.52 MG/DL Random Glucose 135 MG/DL Calcium Level 8.6 MG/DL Sodium Level 142 MEQ/L Potassium Level 3.3 MEQ/L Chloride Level 107 MEQ/L Carbon Dioxide Level 25.4 MEQ/L Anion Gap 10 MEQ/L Estimat Glomerular Filtration Rate 117 ML/MIN Administered Medications Medications (Trade) Dose Ordered Sig/[place] Route PRN Reason Start Time Stop Time Status Last Admin Dose Admin Insulin Human Regular (NovoLIN R SUPPLEMENTAL SCALE) 1 Q6HR SQ 04/07/17 18:00 04/16/17 18:00 Magnesium Hydroxide (Milk Of Magnalexandra Liq) 30 ml Q12H PRN PO Mild constipation 04/07/17 13:15 04/15/17 11:11 Pravastatin Sodium (Pravachol) 40 mg HS PO 04/08/17 21:00 04/19/17 21:04 Levothyroxine Sodium (Synthroid) 125 mcg DAILY@0600 PO 04/09/17 06:00 04/20/17 05:18 Benzocaine/Menthol (Cepacol Extra Sung (Sugar Free)) 1 lozenge Q4H PRN BUCCAL THROAT DISCOMFORT 04/08/17 19:00 04/14/17 11:40 Acetaminophen/ Hydrocodone Bitart ([place] 5-325 Mg) 1 tab Q4H PRN PO PAIN SCALE 1 TO 10 04/13/17 18:00 04/20/17 16:18 Objective Remarks GENERAL: Well-nourished, well-developed patient. SKIN: Warm and dry. HEAD: Normocephalic. EYES: No scleral icterus. No injection or drainage. NECK: Supple, trachea midline. No JVD or lymphadenopathy. LYMPHATIC: No adenopathy. CARDIOVASCULAR: Regular rate and rhythm without murmurs. RESPIRATORY: Breath sounds equal bilaterally. No accessory muscle use. GASTROINTESTINAL: Abdomen soft, non-tender, nondistended. EXTREMITIES: No cyanosis, or edema. MUSCULOSKELETAL: Adequate muscle tone. NEUROLOGICAL: No obvious focal deficit. Awake, alert, and oriented x3. PSYCHIATRIC: Appropriate mood and affect; insight and judgment normal. Assessment/Plan Problem List: (1) Pulmonary embolism ICD Codes: I26.99 - Other pulmonary embolism without acute cor pulmonale Status: Acute Plan: -- Bilateral pulmonary embolism with saddle embolus -- Evidence of right heart strain. -- Unable to receive to lytic therapy due to acute/subacute CVA. -- During the course of her hospital stay she was initially placed on IV heparin gtt, transitioned to lovneox and then transitioned to apixaban. This was held after noticeable drop in hgb; found to have abdominal wall hematomas. -- Bilateral lower extremity ultrasound with extensive VTE in right lower extremity. -- IVC filter placed 04/14 (2) Abdominal hematoma ICD Codes: S30.1XXA - Contusion of abdominal wall, initial encounter Plan: -- Two large hematomas measuring 3.5 x 6.3 x 4.8 cm and a pelvic hematoma of 6.3 x 11 x 14 cm. -- Patient's hemoglobin has dropped by 3 gm/dL. -- Surgery following. -- Fluid collection near rectus muscle possibly due to lovenox injections. -- Large pelvic fluid collection (? in abdominal cavity) likely due to coughing/ straining. -- Repeat CT imaging shows STABLE hematoma (3) CVA (cerebral vascular accident) ICD Codes: I63.9 - Cerebral infarction, unspecified Plan: -- Acute vs subacute. -- Previously on full dose ASA, this is now being held. -- Followed by Neurology Assessment 1. Bilateral pulmonary embolism with saddle embolus: evidence of right heart strain. Unable to receive to lytic therapy due to acute/subacute CVA. Started on prophylactic heparin this weekend. Heparin gtt without bolus started on Monday. Her hemoglobin subsequently feel by one point and PTT was elevated above therapeutic level. Heparin gtt subsequently held. Repeat hemoglobin has been stable and low. Repeat abdominal imaging with decrease in size of abdominal wall hematoma. Long discussion with patient. Given high clot burden in lower extremity, lung, and likely embolic stroke she ideally would be on full intensity anticoagulation. At this point given falling hemoglobin and abdominal/pelvic hematomas do not feel that she is a good candidate for full intensity anticoaguatlion. Another risk factor for anticoagulation is frequent falls at home. She has IVC filter in place. Will plan to start and send patient home on subq lovenox at prophylactic dosing (40 mg Qdaily) to be given daily. Creatinine clearance using IBW is 60 and actual body weight is 110. Ok to proceed with lovenox. Will give in adipose tissue of legs as opposed to abdomen. She will have close follow up in clinic. For half-way anticoagulation would consider warfarin. Will start lovenox today and monitor over the course of 24-48 hours. Ok to transfer to regular bed. Ordered PT. 2. CVA: acute vs subacute. Followed by neurology and feels that this stroke is likely due to embolic phenomenon. Holding aspirin due to bleeding. 3. Abdominal wall hematoma: Improving 4. Anticoagulation: s/p placement of IVC filter. subq lovenox. Problem Qualifiers (1) Pulmonary embolism: Qualified Codes: I26.02 - Saddle embolus of pulmonary artery with acute cor pulmonale Marichuy Call MD Apr 20, 2017 19:30
[2017-04-20] MEDS: ENOXAPARIN SODIUM 40 MG/0.4 ML SYRINGE SQ SCH (20:01)
[2017-04-20] MEDS: PRAVASTATIN SOD 40 MG TAB PO SCH (20:01)
[2017-04-20] MEDS ORDERED: POTASSIUM CHLORIDE 20 MEQ CONTROLLED RELEASE TAB PO ONE (23:15)
[2017-04-21] VITALS (8 sets, daily range): BP systolic 105–123; BP diastolic 55–63; PULSE 76–88; RESP 15–19; TEMP 97.8–98.6; O2SAT 92–97
[2017-04-21] MEDS: LEVOTHYROXINE SODIUM 125 MCG TAB PO SCH (04:50)
[2017-04-21] MEDS: INSULIN NovoLIN REGULAR SUPPLEMENTAL SCALE SQ SCH ×3 (04:50→17:49)
[2017-04-21] MEDS: ACETAMINOPHEN/HYDROcodone 325 MG/5 MG TAB PO PRN ×3 (05:10→21:15)
[2017-04-21 06:27] LABS: AUTOMATED NEUTROPHIL # 4.8 TH/MM3 (1.8-7.7); BASOPHIL # 0.1 TH/MM3 (0-0.2); BASOPHIL % 1.1 % (0.0-2.0); EOSINOPHIL # 0.3 TH/MM3 (0-0.4); EOSINOPHIL % 4.3 % (0.0-4.0); HEMATOCRIT 25.3 % (35.0-46.0); LYMPH % 17.3 % (9.0-44.0); LYMPHOCYTE # 1.3 TH/MM3 (1.0-4.8); MEAN CELL VOLUME 96.7 FL (80.0-100.0); MEAN CORPUSCULAR HEMOGLOBIN 33.2 PG (27.0-34.0); MEAN CORPUSCULAR HGB CONC 34.3 % (32.0-36.0); MONO % 11.1 % (0.0-8.0); NEUT % 66.2 % (16.0-70.0); PLATELET COUNT 269 TH/MM3 (150-450); RED BLOOD COUNT 2.62 MIL/MM3 (4.00-5.30); RED CELL DISTRIBUTION WIDTH 13.6 % (11.6-17.2); WHITE BLOOD COUNT 7.3 TH/MM3 (4.0-11.0)
[2017-04-21 07:00] LABS: BICARBONATE 25.8 MEQ/L (21.0-32.0); MAGNESIUM 2.2 MG/DL (1.5-2.5); POTASSIUM 4.6 MEQ/L (3.5-5.1)
[2017-04-21 07:12] LABS: HEMO FLAGS AUTO DIFF
[2017-04-21 08:22] LABS: BANDS 2 % (0-6); EOSINOPHILS 3 % (0-4); MYELOCYTES 1 % (0-0); POLYS (SEG NEUTROPHILS) 66 % (16-70); WBC DIFF SAMPLE 100
[2017-04-21 08:23] LABS: PLATELET ESTIMATE SMEAR NORMAL (NORMAL); PLATELET MORPHOLOGY NORMAL (NORMAL); SCAN/DIFF FINAL DIFF MANUAL
--- NOTE | 2017-04-21 18:31 | PD.ONC.PN ---
Subjective Subjective Remarks Resting comfortably in bed. Looking forward to a regular room and to working with PT. Objective Data Date Time Temp Pulse Resp B/P (MAP) Pulse Ox O2 Delivery O2 Flow Rate FiO2 04/21/17 16:00 88 04/21/17 16:00 97.8 79 17 106/58 (74) 97 04/21/17 12:00 97.8 79 17 106/58 (74) 97 04/21/17 12:00 88 04/21/17 10:00 98.0 88 17 123/63 (83) 97 04/21/17 10:00 88 04/21/17 08:00 88 04/21/17 08:00 98.0 88 17 123/63 (83) 97 04/21/17 04:00 98.0 88 123/63 (83) 97 04/21/17 04:00 88 04/21/17 00:00 97.9 76 15 105/55 (72) 96 04/21/17 00:00 76 04/20/17 22:00 78 04/20/17 20:45 92 21 04/20/17 20:00 90 04/20/17 20:00 98.3 90 25 123/60 (81) 94 04/21/17 04/21/17 04/21/17 07:00 15:00 23:00 Intake Total 600 ml 480 ml Balance 600 ml 480 ml Result Diagram: 04/21/17 0526 04/21/17525 Laboratory Results Laboratory Tests Test 04/21/17 05:26 White Blood Count 7.3 TH/MM3 Red Blood Count 2.62 MIL/MM3 Hemoglobin 8.7 GM/DL Hematocrit 25.3 % Mean Corpuscular Volume 96.7 FL Mean Corpuscular Hemoglobin 33.2 PG Mean Corpuscular Hemoglobin Concent 34.3 % Red Cell Distribution Width 13.6 % Platelet Count 269 TH/MM3 Mean Platelet Volume 7.8 FL Neutrophils (%) (Auto) 66.2 % Lymphocytes (%) (Auto) 17.3 % Monocytes (%) (Auto) 11.1 % Eosinophils (%) (Auto) 4.3 % Basophils (%) (Auto) 1.1 % Neutrophils # (Auto) 4.8 TH/MM3 Lymphocytes # (Auto) 1.3 TH/MM3 Monocytes # (Auto) 0.8 TH/MM3 Eosinophils # (Auto) 0.3 TH/MM3 Basophils # (Auto) 0.1 TH/MM3 CBC Comment AUTO DIFF Differential Total Cells Counted 100 Neutrophils % (Manual) 66 % Band Neutrophils % 2 % Lymphocytes % 20 % Monocytes % 8 % Eosinophils % 3 % Neutrophils # (Manual) 5.0 TH/MM3 Myelocytes 1 % Differential Comment FINAL DIFF MANUAL Platelet Estimate NORMAL Platelet Morphology Comment NORMAL Blood Urea Nitrogen 17 MG/DL Creatinine 0.59 MG/DL Random Glucose 125 MG/DL Calcium Level 8.7 MG/DL Magnesium Level 2.2 MG/DL Sodium Level 141 MEQ/L Potassium Level 4.6 MEQ/L Chloride Level 108 MEQ/L Carbon Dioxide Level 25.8 MEQ/L Anion Gap 7 MEQ/L Estimat Glomerular Filtration Rate 101 ML/MIN Administered Medications Medications (Trade) Dose Ordered Sig/[place] Route PRN Reason Start Time Stop Time Status Last Admin Dose Admin Insulin Human Regular (NovoLIN R SUPPLEMENTAL SCALE) 1 Q6HR SQ 04/07/17 18:00 04/16/17 18:00 Magnesium Hydroxide (Milk Of [place]) 30 ml Q12H PRN PO Mild constipation 04/07/17 13:15 04/15/17 11:11 Pravastatin Sodium (Pravachol) 40 mg HS PO 04/08/17 21:00 04/20/17 20:01 Levothyroxine Sodium (Synthroid) 125 mcg DAILY@0600 PO 04/09/17 06:00 04/21/17 04:50 Benzocaine/Menthol (Cepacol Extra Sung (Sugar Free)) 1 lozenge Q4H PRN BUCCAL THROAT DISCOMFORT 04/08/17 19:00 04/14/17 11:40 Acetaminophen/ Hydrocodone Bitart ([place] 5-325 Mg) 1 tab Q4H PRN PO PAIN SCALE 1 TO 10 04/13/17 18:00 04/21/17 14:43 Enoxaparin Sodium (Lovenox Inj) 40 mg Q24H SQ 04/20/17 20:00 04/20/17 20:01 Objective Remarks GENERAL: Well-nourished, well-developed patient. SKIN: healing bruising on face from fall HEAD: Normocephalic. EYES: No scleral icterus. No injection or drainage. CARDIOVASCULAR: Regular rate and rhythm without murmurs. RESPIRATORY: Breath sounds equal bilaterally. No accessory muscle use. GASTROINTESTINAL: Abdomen soft, non-tender, healing bruising on abdomen EXTREMITIES: No cyanosis, or edema. MUSCULOSKELETAL: Adequate muscle tone. NEUROLOGICAL: No obvious focal deficit. Awake, alert, and oriented x3. PSYCHIATRIC: Appropriate mood and affect; insight and judgment normal. Assessment/Plan Problem List: (1) Pulmonary embolism ICD Codes: I26.99 - Other pulmonary embolism without acute cor pulmonale Status: Acute Plan: -- Bilateral pulmonary embolism with saddle embolus -- Evidence of right heart strain. -- Unable to receive to lytic therapy due to acute/subacute CVA. -- During the course of her hospital stay she was initially placed on IV heparin gtt, transitioned to lovneox and then transitioned to apixaban. This was held after noticeable drop in hgb; found to have abdominal wall hematomas. -- Bilateral lower extremity ultrasound with extensive VTE in right lower extremity. -- IVC filter placed 04/14 (2) Abdominal hematoma ICD Codes: S30.1XXA - Contusion of abdominal wall, initial encounter Plan: -- Two large hematomas measuring 3.5 x 6.3 x 4.8 cm and a pelvic hematoma of 6.3 x 11 x 14 cm. -- Patient's hemoglobin has dropped by 3 gm/dL. -- Surgery following. -- Fluid collection near rectus muscle possibly due to lovenox injections. -- Large pelvic fluid collection (? in abdominal cavity) likely due to coughing/ straining. -- Repeat CT imaging shows STABLE hematoma (3) CVA (cerebral vascular accident) ICD Codes: I63.9 - Cerebral infarction, unspecified Plan: -- Acute vs subacute. -- Previously on full dose ASA, this is now being held. -- Followed by Neurology Assessment 1. Venous thromboembolism: Bilateral pulmonary embolism with saddle embolus and right lower extremity DVT: with evidence of right heart strain on admission however she was unable to receive to lytic therapy due to acute/ subacute CVA. 2. CVA: acute vs subacute with neurology team following. Aspirin on hold. 3. Abdominal wall hematoma: improving. 4: Anticoagulation: s/p placement of IVC filter. She was initially placed on heparin gtt on admission, converted to full intensity lovenox, and then converted to apixaban. She subsequently developed abdominal wall hematomas with drop in hemoglobin. Anticogulation was held. She was then placed on prophylactic heparin as she had rise in creatinine due to drop in hemgolobin. Full intensity anticoagulation was again attempted with heparin gtt however she had another drop in hemoglobin. Long discussion with patient. Given high clot burden in lower extremity, lung, and likely embolic stroke she ideally would be on full intensity anticoagulation. At this point given falling hemoglobin and abdominal/pelvic hematomas do not feel that she is a good candidate for full intensity anticoaguatlion. Another risk factor for anticoagulation is frequent falls at home. She has IVC filter in place. Will plan to start and send patient home on subq lovenox at prophylactic dosing (40 mg Qdaily) to be given daily. Creatinine clearance using IBW is 60 and actual body weight is 110. Ok to proceed with lovenox. Will give in adipose tissue of legs as opposed to abdomen. She will have close follow up in clinic. 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 Doing well on subq lovenox. Awaiting transfer to floor. Awaiting PT consult. Problem Qualifiers (1) Pulmonary embolism: Qualified Codes: I26.02 - Saddle embolus of pulmonary artery with acute cor pulmonale Marichuy Call MD Apr 21, 2017 18:31
--- NOTE | 2017-04-21 20:29 | HHI.PR ---
Subjective Remarks She reports working well with the physical therapist. She is tolerating the current use of anticoagulation and has not had any obvious problems. Objective - Vital Signs Date Time Temp Pulse Resp B/P (MAP) Pulse Ox O2 Delivery O2 Flow Rate FiO2 04/21/17 16:00 88 04/21/17 16:00 97.8 79 17 106/58 (74) 97 04/21/17 12:00 97.8 79 17 106/58 (74) 97 04/21/17 12:00 88 04/21/17 10:00 98.0 88 17 123/63 (83) 97 04/21/17 10:00 88 04/21/17 08:00 88 04/21/17 08:00 98.0 88 123/63 (83) 97 04/21/17 04:00 98.0 88 123/63 (83) 97 04/21/17 04:00 88 04/21/17 00:00 97.9 76 15 105/55 (72) 96 04/21/17 00:00 76 04/20/17 22:00 78 04/20/17 20:45 92 21 I/O 04/20/17 04/20/17 04/20/17 04/21/17 04/21/17 04/21/17 07:00 15:00 23:00 07:00 15:00 23:00 Intake Total 480 ml 480 ml 600 ml 480 ml Balance 480 ml 480 ml 600 ml 480 ml Intake Oral 480 ml 480 ml 600 ml 480 ml # Voids 2 3 3 3 # Bowel Movements 0 1 1 Result Diagram: 04/21/1752504/21/17525 Objective Remarks GENERAL: Appears comfortable. SKIN: Warm and dry. HEAD: Normocephalic. EYES: No scleral icterus. No injection or drainage. NECK: Supple, trachea midline. No JVD or lymphadenopathy. CARDIOVASCULAR: Regular rate and rhythm without murmurs, gallops, or rubs. RESPIRATORY: Breath sounds equal bilaterally. No accessory muscle use. GASTROINTESTINAL: Abdomen soft, non-tender, nondistended. MUSCULOSKELETAL: No cyanosis, or edema. BACK: Nontender without obvious deformity. No CVA tenderness. NEURO: No focal deficits. A/P Assessment and Plan ASSESSMENT 1. Hematomas of the Abdominal and Pelvic [place]-continue with progress toward resolution. 2. Acute Blood Loss Anemia. 3. Acute Kidney Injury-improved. 4. Bilateral Pulmonary Emboli with Saddle Embolism. 5. Deep Vein Thrombosis of the Right Lower Extremity. 6. Severe Symptomatic Dyspnea-improved. 7. Hypoxemia-resolved. 8. Cerebral Vascular Accident. 9. Hypertension. 10. Hyperlipidemia. 11. Hypothyroidism. 12. Diabetes Mellitus, Type 2. 13. Osteoarthritis. 14. Lumbar Disc Disease. 15. 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 PLAN 1. Anticoagulation therapy continues. 2. Follow up laboratory assessment with close monitoring of hgb/hct and renal function. 3. Hematology continues to follow. 4. Continue to advance activity as tolerated. 5. DVT, PE and PUD prophylaxis with use of Sequential Compression Device. Reyes Valenzuela MD Apr 21, 2017 20:29
[2017-04-21] MEDS: ENOXAPARIN SODIUM 40 MG/0.4 ML SYRINGE SQ SCH (21:15)
[2017-04-21] MEDS: PRAVASTATIN SOD 40 MG TAB PO SCH (21:15)
[2017-04-22] VITALS: PULSE 78
[2017-04-22 03:09] VITALS: BP 126/57; PULSE 90; RESP 18; TEMP 98.5; O2SAT 99
[2017-04-22] MEDS: INSULIN NovoLIN REGULAR SUPPLEMENTAL SCALE SQ SCH ×3 (05:56→11:57)
[2017-04-22] MEDS: LEVOTHYROXINE SODIUM 125 MCG TAB PO SCH (05:57)
[2017-04-22] MEDS: ACETAMINOPHEN/HYDROcodone 325 MG/5 MG TAB PO PRN ×3 (06:02→18:33)
[2017-04-22 07:40] LABS: BASOPHIL % 0.7 % (0.0-2.0); EOSINOPHIL # 0.3 TH/MM3 (0-0.4); EOSINOPHIL % 3.7 % (0.0-4.0); HEMATOCRIT 24.6 % (35.0-46.0); LYMPH % 16.6 % (9.0-44.0); LYMPHOCYTE # 1.2 TH/MM3 (1.0-4.8); MEAN CELL VOLUME 96.4 FL (80.0-100.0); MEAN CORPUSCULAR HEMOGLOBIN 32.6 PG (27.0-34.0); MEAN CORPUSCULAR HGB CONC 33.9 % (32.0-36.0); PLATELET COUNT 264 TH/MM3 (150-450); RED BLOOD COUNT 2.56 MIL/MM3 (4.00-5.30); RED CELL DISTRIBUTION WIDTH 13.7 % (11.6-17.2); WHITE BLOOD COUNT 7.3 TH/MM3 (4.0-11.0)
[2017-04-22 07:46] LABS: HEMO FLAGS AUTO DIFF
[2017-04-22 08:10] LABS: BICARBONATE 25.9 MEQ/L (21.0-32.0)
[2017-04-22 09:05] VITALS: BP 119/73; PULSE 78; RESP 20; TEMP 100.1; O2SAT 97
[2017-04-22 09:09] VITALS: BP 105/55; PULSE 96; RESP 20; TEMP 98.7; O2SAT 98
[2017-04-22 09:39] LABS: EOSINOPHILS 3 % (0-4); METAMYELOCYTES 2 % (0-1); MYELOCYTES 1 % (0-0); NEUTROPHIL # MANUAL DIFF 5.8 TH/MM3 (1.8-7.7); POLYS (SEG NEUTROPHILS) 76 % (16-70); WBC DIFF SAMPLE 100
[2017-04-22 09:40] LABS: PLATELET ESTIMATE SMEAR NORMAL (NORMAL); PLATELET MORPHOLOGY NORMAL (NORMAL); SCAN/DIFF FINAL DIFF MANUAL
--- NOTE | 2017-04-22 11:45 | PD.ONC.PN ---
Subjective Subjective Remarks Afebrile overnight. Patient resting in room with at bedside. Asking to go home today. Objective Data Date Time Temp Pulse Resp B/P (MAP) Pulse Ox O2 Delivery O2 Flow Rate FiO2 04/22/17 09:09 98.7 96 20 105/55 (72) 98 04/22/17 03:09 98.5 90 18 126/57 (80) 99 04/22/17 00:00 78 04/21/17 20:24 96 21 04/21/17 20:00 98.6 86 19 109/56 (73) 92 04/21/17 20:00 86 04/21/17 16:00 88 04/21/17 16:00 97.8 79 17 106/58 (74) 97 04/21/17 12:00 97.8 79 17 106/58 (74) 97 04/21/17 12:00 88 04/22/17 04/22/17 04/22/17 07:00 15:00 23:00 Intake Total 240 ml Balance 240 ml Result Diagram: 04/22/1728 04/22/17727 Laboratory Results Laboratory Tests Test 04/22/17 07:28 White Blood Count 7.3 TH/MM3 Red Blood Count 2.56 MIL/MM3 Hemoglobin 8.3 GM/DL Hematocrit 24.6 % Mean Corpuscular Volume 96.4 FL Mean Corpuscular Hemoglobin 32.6 PG Mean Corpuscular Hemoglobin Concent 33.9 % Red Cell Distribution Width 13.7 % Platelet Count 264 TH/MM3 Mean Platelet Volume 7.0 FL Neutrophils (%) (Auto) 69.0 % Lymphocytes (%) (Auto) 16.6 % Monocytes (%) (Auto) 10.0 % Eosinophils (%) (Auto) 3.7 % Basophils (%) (Auto) 0.7 % Neutrophils # (Auto) 5.0 TH/MM3 Lymphocytes # (Auto) 1.2 TH/MM3 Monocytes # (Auto) 0.7 TH/MM3 Eosinophils # (Auto) 0.3 TH/MM3 Basophils # (Auto) 0.0 TH/MM3 CBC Comment AUTO DIFF Differential Total Cells Counted 100 Neutrophils % (Manual) 76 % Lymphocytes % 12 % Monocytes % 6 % Eosinophils % 3 % Neutrophils # (Manual) 5.8 TH/MM3 Metamyelocytes 2 % Myelocytes 1 % Differential Comment FINAL DIFF MANUAL Platelet Estimate NORMAL Platelet Morphology Comment NORMAL Blood Urea Nitrogen 22 MG/DL Creatinine 0.60 MG/DL Random Glucose 106 MG/DL Calcium Level 9.0 MG/DL Sodium Level 137 MEQ/L Potassium Level 4.0 MEQ/L Chloride Level 105 MEQ/L Carbon Dioxide Level 25.9 MEQ/L Anion Gap 6 MEQ/L Estimat Glomerular Filtration Rate 99 ML/MIN Administered Medications Medications (Trade) Dose Ordered Sig/[place] Route PRN Reason Start Time Stop Time Status Last Admin Dose Admin Insulin Human Regular (NovoLIN R SUPPLEMENTAL SCALE) 1 Q6HR SQ 04/07/17 18:00 04/16/17 18:00 Magnesium Hydroxide (Milk Of [place]) 30 ml Q12H PRN PO Mild constipation 04/07/17 13:15 04/15/17 11:11 Pravastatin Sodium (Pravachol) 40 mg HS PO 04/08/17 21:00 04/21/17 21:15 Levothyroxine Sodium (Synthroid) 125 mcg DAILY@0600 PO 04/09/17 06:00 04/22/17 05:57 Benzocaine/Menthol (Cepacol Extra Sung (Sugar Free)) 1 lozenge Q4H PRN BUCCAL THROAT DISCOMFORT 04/08/17 19:00 04/14/17 11:40 Acetaminophen/ Hydrocodone Bitart ([place] 5-325 Mg) 1 tab Q4H PRN PO PAIN SCALE 1 TO 10 04/13/17 18:00 04/22/17 06:02 Enoxaparin Sodium (Lovenox Inj) 40 mg Q24H SQ 04/20/17 20:00 04/21/17 21:15 Objective Remarks GENERAL: Pleasant elderly female sitting up in chair next to bed in [facility]. SKIN: Warm and dry. HEAD: Normocephalic. EYES: No injection or drainage. NECK: Supple, trachea midline. CARDIOVASCULAR: Regular rate and rhythm RESPIRATORY: Breath sounds equal bilaterally. No accessory muscle use. GASTROINTESTINAL: Abdomen soft, non-tender, nondistended. EXTREMITIES: No cyanosis NEUROLOGICAL: awake and alert, normal speech. Assessment/Plan Problem List: (1) Pulmonary embolism ICD Codes: I26.99 - Other pulmonary embolism without acute cor pulmonale Status: Acute Plan: -- Bilateral pulmonary embolism with saddle embolus -- Evidence of right heart strain. -- Unable to receive to lytic therapy due to acute/subacute CVA. -- During the course of her hospital stay she was initially placed on IV heparin gtt, transitioned to lovneox and then transitioned to apixaban. This was held after noticeable drop in hgb; found to have abdominal wall hematomas. -- Bilateral lower extremity ultrasound with extensive VTE in right lower extremity. -- IVC filter placed 04/14 (2) Abdominal hematoma ICD Codes: S30.1XXA - Contusion of abdominal wall, initial encounter Plan: -- Two large hematomas measuring 3.5 x 6.3 x 4.8 cm and a pelvic hematoma of 6.3 x 11 x 14 cm. -- Patient's hemoglobin has dropped by 3 gm/dL. -- Surgery following. -- Fluid collection near rectus muscle possibly due to lovenox injections. -- Large pelvic fluid collection (? in abdominal cavity) likely due to coughing/ straining. -- Repeat CT imaging shows STABLE hematoma (3) CVA (cerebral vascular accident) ICD Codes: I63.9 - Cerebral infarction, unspecified Plan: -- Acute vs subacute. -- Previously on full dose ASA, this is now being held. -- Followed by Neurology Assessment 1. Venous thromboembolism: Bilateral pulmonary embolism with saddle embolus and right lower extremity DVT: with evidence of right heart strain on admission however she was unable to receive to lytic therapy due to acute/ subacute CVA. 2. CVA: acute vs subacute with neurology team following. Aspirin on hold. 3. Abdominal wall hematoma: improving. 4: Anticoagulation: s/p placement of IVC filter 04/22: tolerating Subcutaneous Lovenox. recommend continuing and following up in clinic once discharged. Attending Statement The exam, history, and the medical decision-making described in the above note were completed with the assistance of the mid-level provider. I reviewed and agree with the findings presented. I attest that I had a [id number] encounter with the patient on the same day, and personally performed and documented my assessment and findings in the medical record. Discussed with pt plan to proceed with prophylactic dose of Lovenox, monitor for bleeding. IVC filter in place. Hematoma over abdomen resolving and tracking to pubic area. Discussed w/ Dr. Call above plan. Patient reassured. Problem Qualifiers (1) Pulmonary embolism: Qualified Codes: I26.02 - Saddle embolus of pulmonary artery with acute cor pulmonale Coye,Rosi Chantell PA Apr 22, 2017 11:45 Edna Covarrubias MD Apr 22, 2017 20:07
--- NOTE | 2017-04-22 17:52 | HHI.PR ---
Subjective Remarks She is sitting up in the chair and having a conversation with her . She denies any adverse changes for today. Her medications are being tolerated well. Objective - Vital Signs Date Time Temp Pulse Resp B/P (MAP) Pulse Ox O2 Delivery O2 Flow Rate FiO2 04/22/17 09:09 98.7 96 20 105/55 (72) 98 04/22/17 03:09 98.5 90 18 126/57 (80) 99 04/22/17 00:00 78 04/21/17 20:24 96 21 04/21/17 20:00 98.6 86 19 109/56 (73) 92 04/21/17 20:00 86 I/O 04/21/17 04/21/17 04/21/17 04/22/17 04/22/17 04/22/17 07:00 15:00 23:00 07:00 15:00 23:00 Intake Total 600 ml 480 ml 240 ml Balance 600 ml 480 ml 240 ml Intake Oral 600 ml 480 ml 240 ml # Voids 3 3 2 # Bowel Movements 1 Result Diagram: 04/22/1772704/22/17727 Objective Remarks SKIN: Warm and dry. HEAD: Normocephalic and atraumatic. EYES: No scleral icterus. No injection or drainage. NECK: Supple, trachea midline. No JVD or lymphadenopathy. CARDIOVASCULAR: Regular rate and rhythm without murmurs, gallops, or rubs. RESPIRATORY: Breath sounds equal bilaterally. No accessory muscle use. GASTROINTESTINAL: Abdomen soft, non-tender, nondistended. MUSCULOSKELETAL: No cyanosis, or edema. BACK: Nontender without obvious deformity. No CVA tenderness. A/P Assessment and Plan ASSESSMENT 1. Hematomas of the Abdominal and Pelvic [place]. 2. Acute Blood Loss Anemia. 3. Acute Kidney Injury. 4. Bilateral Pulmonary Emboli with Saddle Embolism. 5. Deep Vein Thrombosis of the Right Lower Extremity. 6. Severe Symptomatic Dyspnea-resolved. 7. Hypoxemia-resolved. 8. Cerebral Vascular Accident. 9. Hypertension. 10. Hyperlipidemia. 11. Hypothyroidism. 12. Diabetes Mellitus, Type 2. 13. Osteoarthritis. 14. Lumbar Disc Disease. 15. 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 MEDICALLY STABLE STATUS PLAN 1. Anticoagulation therapy continues with use of Lovenox subcutaneously. 2. Continue activity as tolerated. 3. Hematology disposition is given. 4. Discharge Planning. 5. DVT, PE and PUD prophylaxis. HOME TODAY WITH CLOSE OUTPATIENT FOLLOW UP Reyes Valenzuela MD Apr 22, 2017 17:52
[2017-04-22] MEDS ORDERED: LEVO.125 PO (18:01)
[2017-04-22] MEDS ORDERED: HYDR-3516 PO (18:01)
[2017-04-22] MEDS ORDERED: ENOX40P SQ (18:01)
[2017-04-22] MEDS: ENOXAPARIN SODIUM 40 MG/0.4 ML SYRINGE SQ SCH (18:34)
== END 2017-04-22 19:15 | disposition home or self-care (01) | DRG 166 ==
LOC: NEPE 10:52 → NEDA 13:15 → HIME 16:45 → HCPC 04-08 20:05 → UNDODISIN 04-11 17:25 → N05A 04-11 17:53 → HIMN 04-15 18:25 → HCIN 04-22 03:00
PROVIDERS: ADMIT Internal Medicine Critical Care Medicine; ATTEND Internal Medicine
PROC: 06H03DZ Insertion of Intraluminal Device into Inferior Vena Cava, Percutaneous Approach (ICD-10-PCS; principal; 2017-04-14)
PROC: B5191ZZ Fluoroscopy of Inferior Vena Cava using Low Osmolar Contrast (ICD-10-PCS; 2017-04-14)
DX: I26.92 Saddle embolus of pulmonary artery without acute cor pulmonale (principal); I63.411 Cerebral infarction due to embolism of right middle cerebral artery; N17.9 Acute kidney failure, unspecified; I82.411 Acute embolism and thrombosis of right femoral vein; I82.431 Acute embolism and thrombosis of right popliteal vein; D62 Acute posthemorrhagic anemia; E11.9 Type 2 diabetes mellitus without complications; R09.02 Hypoxemia; E89.0 Postprocedural hypothyroidism; S30.1XXA Contusion of abdominal wall, initial encounter; R26.81 Unsteadiness on feet; S00.83XA Contusion of other part of head, initial encounter; M79.81 Nontraumatic hematoma of soft tissue; W18.09XA Striking against other object with subsequent fall, initial encounter; T45.515A Adverse effect of anticoagulants, initial encounter; E78.5 Hyperlipidemia, unspecified; M19.90 Unspecified osteoarthritis, unspecified site; S30.0XXA Contusion of lower back and pelvis, initial encounter; M51.9 Unspecified thoracic, thoracolumbar and lumbosacral intervertebral disc disorder; I10 Essential (primary) hypertension; Y92.002 Bathroom of unspecified non-institutional (private) residence as the place of occurrence of the external cause; S00.33XA Contusion of nose, initial encounter; Z85.42 Personal history of malignant neoplasm of other parts of uterus; Z86.718 Personal history of other venous thrombosis and embolism; Z85.850 Personal history of malignant neoplasm of thyroid; Z91.81 History of falling
CPT/HCPCS: 37191; 70450; 70486; 70553; 71010; 71275; 74176; 74177; 80048; 80053; 80061; 80076; 82248; 82550; 82948; 83735; 83880; 84484; 85007; 85014; 85018; 85025; 85027; 85610; 85730; 93005; 93306; 93880; 93970; 94667; 99152; 99153; A9579; C1769; C1880; J0690; J1644; J1650; J2060; J3010; J3480; Q9963; Q9967